=== PATIENT | male | born 1965 | race African-American/Black ===

== ENCOUNTER 2017-04-09 07:25 | Observation (INO) | payer OTHER ==
[~2017-04-09] VITALS: Ht 177.8 cm; Wt 98.0 kg
[2017-04-09] VITALS (7 sets, daily range): BP systolic 112–129; BP diastolic 61–79; PULSE 66–86; RESP 18–20; TEMP 98–98.2; O2SAT 96–98
--- NOTE | 2017-04-09 07:37 | PD ---
HPI Chief Complaint: Chest Pain Time Seen by Provider: 07:32 Travel History International Travel<30 days: No Contact w/Intl Traveler<30days: No Traveled to known affect area: No History of Present Illness HPI This is a 51-year-old male who presents to the emergency department with chest discomfort that started 30 minutes prior to arrival, sternal, constant, moderate severity, radiating to the back and to the left leg associated with shortness of breath and nausea. Patient says he used cocaine last night. He is hopeful to check into a detox. He also has diabetes and hypertension. FORMERLY [facility] Past Medical History Narrative Medical htn dm not on meds for 2 weeks Social History Alcohol Use: Yes Tobacco Use: No Substance Use: Yes (cocaine) Allergies-Medications (Allergen,Severity, Reaction): Coded Allergies: haloperidol (Verified Allergy, Intermediate, Swollen tongue, 04/09/17) Review of Systems Except as stated in HPI: all other systems reviewed are Neg Physical Exam Narrative GENERAL:Well appearing, no acute distress SKIN: Focused skin assessment warm and dry. HEAD: Atraumatic. Normocephalic. EYES: Pupils equal and round. No injection or drainage. ENT: Moist mucous membranes NECK: Trachea midline. CARDIOVASCULAR: Regular rate and rhythm. No murmur appreciated. Radial pulses are equal and 2+ bilaterally RESPIRATORY: Clear to auscultation. Breath sounds equal bilaterally. GASTROINTESTINAL: Abdomen soft, non-tender, nondistended. MUSCULOSKELETAL: No obvious deformities. NEUROLOGICAL: Awake and alert. No obvious cranial nerve deficits. Moving all extremities. PSYCHIATRIC: Appropriate mood and affect; insight and judgment normal. Data Data Last Documented VS Vital Signs Date Time Temp Pulse Resp B/P (MAP) Pulse Ox O2 Delivery O2 Flow Rate FiO2 04/09/17 07:40 82 114/76 (89) 04/09/17 07:39 97 Nasal Cannula 2.00 04/09/17 07:37 22 04/09/17 07:30 98.0 Orders Orders Electrocardiogram (04/09/17 07:33) Complete Blood Count With Diff (04/09/17 07:33) Comprehensive Metabolic Panel (04/09/17 07:33) Prothrombin Time / Inr (Pt) (04/09/17 07:33) Act Partial Throm Time (Ptt) (04/09/17 07:33) Troponin I (04/09/17 07:33) Chest, Single Ap (04/09/17 07:33) Ecg Monitoring (04/09/17 07:33) Bilateral Bp Monitoring (04/09/17 07:33) Iv Access Insert/Monitor (04/09/17 07:33) Oximetry (04/09/17 07:33) Oxygen Administration (04/09/17 07:33) Cta Thor Abd Aorta W Iv C W3d (04/09/17 07:33) Iohexol 350 Inj (Omnipaque 350 Inj) (04/09/17 08:44) Admit Order (Ed Use Only) (04/09/17 09:29) Labs Laboratory Tests Test 04/09/17 07:45 White Blood Count 4.7 TH/MM3 Red Blood Count 4.85 MIL/MM3 Hemoglobin 14.0 GM/DL Hematocrit 43.1 % Mean Corpuscular Volume 88.8 FL Mean Corpuscular Hemoglobin 28.9 PG Mean Corpuscular Hemoglobin Concent 32.5 % Red Cell Distribution Width 15.0 % Platelet Count 180 TH/MM3 Mean Platelet Volume 8.7 FL Neutrophils (%) (Auto) 55.1 % Lymphocytes (%) (Auto) 29.0 % Monocytes (%) (Auto) 12.9 % Eosinophils (%) (Auto) 2.3 % Basophils (%) (Auto) 0.7 % Neutrophils # (Auto) 2.6 TH/MM3 Lymphocytes # (Auto) 1.4 TH/MM3 Monocytes # (Auto) 0.6 TH/MM3 Eosinophils # (Auto) 0.1 TH/MM3 Basophils # (Auto) 0.0 TH/MM3 CBC Comment DIFF FINAL Differential Comment Prothrombin Time 10.5 SEC Prothromb Time International Ratio 1.0 RATIO Activated Partial Thromboplast Time 27.1 SEC Blood Urea Nitrogen 10 MG/DL Creatinine 1.04 MG/DL Random Glucose 106 MG/DL Total Protein 7.4 GM/DL Albumin 3.7 GM/DL Calcium Level 8.3 MG/DL Alkaline Phosphatase 78 U/L Aspartate Amino Transf (AST/SGOT) 41 U/L Alanine Aminotransferase (ALT/SGPT) 46 U/L Total Bilirubin 0.2 MG/DL Sodium Level 141 MEQ/L Potassium Level 3.9 MEQ/L Chloride Level 109 MEQ/L Carbon Dioxide Level 24.5 MEQ/L Anion Gap 8 MEQ/L Estimat Glomerular Filtration Rate 91 ML/MIN Troponin I LESS THAN 0.02 NG/ML MDM Medical Decision Making Medical Screen Exam Complete: Yes Emergency Medical Condition: Yes Interpretation(s) EKG: Normal sinus rhythm with no ST changes No leukocytosis -Electrolytes are reassuring Last 24 hours Impressions Chest X-Ray 04/09/17732 Signed Impressions: Service Date/Time: Sunday, April 09, 2017 07:43 - CONCLUSION: No acute disease. Yon Duarte MD Aorta CTA 04/09/17732 Signed Impressions: Service Date/Time: Sunday, April 09, 2017 08:36 - CONCLUSION: 1. Normal thoracic and abdominal aorta. No dissection or aneurysm. 2. Diverticulosis and constipation. There is a questionable wall thickening within the rectosigmoid colon. Patient would likely benefit from colonoscopy at some point. 3. Mild hepatic steatosis. Yon Duarte MD Differential Diagnosis Acute coronary syndrome, cocaine vasospasm, aortic dissection, pulmonary embolism Narrative Course This is a 51-year-old male who presents to the emergency department with chest discomfort that started half an hour prior to arrival. He says these cocaine last night. He also has a history of diabetes and hypertension. He was placed on a monitor and an IV was established. EKG is reassuring. Labs are unremarkable. He describes some atypical radiation both to the back and the leg so I ordered a CTA which was negative for aortic dissection. Initial troponin is negative. I think patient requires serial cardiac enzymes and the chest pain center given his multiple risk factors. He is requesting detox. I splinted and we don't have an inpatient detox and I think he can be discharged with resources for Natan Bunch following his visit. [facility] Apr 09, 2017 07:37
--- NOTE | 2017-04-09 07:53 | RADRPT ---
EXAM DATE/TIME: 04/09/2017 07:43 [facility] COMPARISON: No previous studies available for comparison. INDICATIONS : Chest pain. MEDICAL HISTORY : Unobtainable. SURGICAL HISTORY : Unobtainable. ENCOUNTER: Initial ACUITY: 2 days PAIN SCORE: 6/10 LOCATION: Bilateral chest FINDINGS: A single view of the chest demonstrates the lungs to be symmetrically aerated without evidence of mas s, infiltrate or effusion. The cardiomediastinal contours are unremarkable. Osseous structures are intact. CONCLUSION: No acute disease. Yon Duarte MD on April 09, 2017 at 7:49 Board Certified Radiologist. This report was verified electronically.
[2017-04-09 07:56] LABS: AUTOMATED NEUTROPHIL # 2.6 TH/MM3 (1.8-7.7); BASOPHIL % 0.7 % (0.0-2.0); EOSINOPHIL # 0.1 TH/MM3 (0-0.4); EOSINOPHIL % 2.3 % (0.0-4.0); HEMATOCRIT 43.1 % (39.0-51.0); HEMO FLAGS DIFF FINAL; LYMPHOCYTE # 1.4 TH/MM3 (1.0-4.8); MEAN CELL VOLUME 88.8 FL (80.0-100.0); MEAN CORPUSCULAR HEMOGLOBIN 28.9 PG (27.0-34.0); MEAN CORPUSCULAR HGB CONC 32.5 % (32.0-36.0); MONO % 12.9 % (0.0-8.0); NEUT % 55.1 % (16.0-70.0); PLATELET COUNT 180 TH/MM3 (150-450); RED BLOOD COUNT 4.85 MIL/MM3 (4.50-5.90); WHITE BLOOD COUNT 4.7 TH/MM3 (4.0-11.0)
[2017-04-09 08:06] LABS: APTT (PATIENT) 27.1 SEC (24.3-30.1); PROTHROMBIN TIME - PATIENT 10.5 SEC (9.8-11.6)
[2017-04-09 08:17] LABS: ALKALINE PHOSPHATASE 78 U/L (45-117); TOTAL BILIRUBIN ADULT 0.2 MG/DL (0.2-1.0)
[2017-04-09 08:24] LABS: ALT (GPT) 46 U/L (12-78); ANION GAP 8 MEQ/L (5-15); AST (GOT) 41 U/L (15-37); BICARBONATE 24.5 MEQ/L (21.0-32.0); BLOOD UREA NITROGEN 10 MG/DL (7-18); CHLORIDE 109 MEQ/L (98-107); GLOMERULAR FILTRATION RATE 91 ML/MIN (>89); POTASSIUM 3.9 MEQ/L (3.5-5.1); SODIUM (NA) 141 MEQ/L (136-145)
[2017-04-09] MEDS ORDERED: IOHEXOL 350 MG/ML 10 ML VIAL (for RAD DIAG) IVCONTRAST ONE (08:44)
--- NOTE | 2017-04-09 09:21 | RADRPT ---
EXAM DATE/TIME: 04/09/2017 08:36 [facility] COMPARISON: No previous studies available for comparison. INDICATIONS : Chest pain, evaluate for dissection. IV CONTRAST: 96 cc Omnipaque 350 (iohexol) IV RADIATION DOSE: 17.11 CTDIvol (mGy) MEDICAL HISTORY : Hypertension. Diabetes SURGICAL HISTORY : None. ENCOUNTER: Initial ACUITY: 1 day PAIN SCALE: 6/10 LOCATION: chest TECHNIQUE: Volumetric scanning was performed using a multi-row detector CT scanner. The data was post processed with a variety of visualization algorithms including full volume maximum intensity projection, multi -planar sliding thin slab reformation, curved planar reformation, and surface rendering techniques. Using automated exposure control and adjustment of the mA and/or kV according to patient size, radiat ion dose was kept as low as reasonably achievable to obtain optimal diagnostic quality images. DICOM format image data is available electronically for review and comparison. FINDINGS: LUNGS: There is no consolidation or pneumothorax. No concerning pulmonary nodule is visualized. No pleural fluid is present. Metallic densities are seen throughout the soft tissues of the right thorax. MEDIASTINUM: No abnormally enlarged lymph nodes by CT criteria. No axillary or hilar abnormalities are identified. ABDOMEN: The liver and spleen are free of focal defects. The gallbladder and pancreas demonstrate no abnormali ty. The adrenal glands are normal. The kidneys demonstrate no evidence of solid renal mass or hydrone phrosis. No free fluid or abdominal masses are identified. No para-aortic adenopathy is seen. Diverti culosis. Copious stool in the colon greatest in the rectum. Fatty liver. PELVIS: No evidence of free fluid or pelvic mass. No abnormally enlarged inguinal or retroperitoneal lymph no inna are present. The bladder is unremarkable. THORACIC AORTA: The thoracic aortic root is normal with normal branching of the great vessels. There is no evidence of aneurysm or dissection. ABDOMINAL AORTA: The aorta is normal in caliber without aneurysm or dissection. The renal arteries are patent bilater ally. The proximal celiac and superior mesenteric arteries are patent and normal in diameter. PELVIC VESSELS: The internal iliac and external iliac vessels are patent without aneurysm or stenosis. CONCLUSION: 1. Normal thoracic and abdominal aorta. No dissection or aneurysm. 2. Diverticulosis and constipation. There is a questionable wall thickening within the rectosigmoid c olon. Patient would likely benefit from colonoscopy at some point. 3. Mild hepatic steatosis. Yon Duarte MD on April 09, 2017 at 9:12 Board Certified Radiologist. This report was verified electronically.
[2017-04-09] MEDS ORDERED: ACETAMINOPHEN 500 MG CPLT PO PRN (10:00)
[2017-04-09] MEDS ORDERED: SODIUM CHLORIDE 0.9% FLUSH 10 ML FLUSH IV FLUSH PRN (10:00)
[2017-04-09] MEDS ORDERED: NITROGLYCERIN 0.4 MG SL 25 TABS/BTL SL PRN (10:00)
[2017-04-09] MEDS ORDERED: ONDANSETRON HCL 4 MG/2 ML VIAL IV PUSH PRN (10:00)
--- NOTE | 2017-04-09 10:31 | HHI.HP ---
HPI Primary Care Physician No Primary Care Physician Chief Complaint Chest pain History of Present Illness 51-year-old male with history of hypertension, diabetes, alcohol abuse, and regular cocaine use presents to emergency room for further evaluation of chest pain. Last used cocaine between 6438-2309 last evening. Onset chest pain between 1013-4464 this morning. Location generalized chest area, pointing to left anterior chest, right anterior chest, and substernal area. Characterized as sharp. Severity moderate. Radiation to left hip. Duration constant. Associated symptoms nausea, dyspnea, diaphoresis. Denied vomiting. No known precipitating or relieving factors. Hurts to take a deep breath, reporting "sore to touch area." Denies similar pain in the past. Endorses recent problem with alcohol last 2 months and cocaine the last month. Drinks a case beer daily and have used cocaine daily for past month. Reports current depression accompanied with suicidal thoughts. Denies a formal suicide plan or past suicide attempts. Review of Systems General: No fatigue,weakness, fever, chills, or recent illness. Reporting daily cocaine use x1 month daily and case beer daily for at least 2 months. Last cocaine use and alcohol drink last evening between 8195-2842. HEENT: No MERCHANT. Reports waking up with right eyelid slightly swollen, no drainage , pain, or vision changes. CV: Continues to have pain as stated above. RESP: No SOB, cough, or recent respiratory infection. GI: No nausea, vomiting, bowel changes, distention, melena, or blood in the stool. EXT: No lower leg edema, no paraesthesias MS: No discomfort or change in ROM. History of chronic low back pain, reports self medication of alcohol and cocaine to help with back pain. NEURO: No motor/sensory deficits PSYCH: Current depression accompanied with frequent thoughts of suicide. Denies previous suicide attempts or formulating a current suicide plan. States current substance and alcohol abuse and would like to stop both. Past Family Social History Allergies: Coded Allergies: haloperidol (Verified Allergy, Intermediate, Swollen tongue, 04/09/17) Past Medical History Hypertension, diabetes type 2, chronic low back pain Past Surgical History None Reported Medications Metformin 500 mg PO twice a day Lisinopril (dose unknown) PO daily Active Ordered Medications Current Medications Medications (Trade) Dose Ordered Sig/Sachin Route Start Time Stop Time Status Last Admin (NS Flush) 2 ml UNSCH PRN IV FLUSH 04/09/17 10:00 (NS Flush) 2 ml BID IV FLUSH 04/09/17 21:00 (Tylenol) 500 mg Q4H PRN PO 04/09/17 10:00 (Zofran Inj) 4 mg Q6H PRN IV PUSH 04/09/17 10:00 (Nitrostat Sl) 0.4 mg Q5M PRN SL 04/09/17 10:00 (Aspirin) 325 mg DAILY PO 04/10/17 09:00 Family History Noncontributory for early onset cardiovascular disease to his knowledge. Social History Known hypertension and diabetes (diagnosed "many years ago" reported to be stable). No known coronary artery disease or hyperlipidemia. Endorses been on cholesterol medication years ago, unsure why medication was stopped. Recently moved to [facility], has not established with a PCP locally. Followed closely with his PCP when living in [place]. Lifelong nonsmoker. Drinks case beer/daily. Daily cocaine use x30 days. Single, engaged, disabled. Past cardiac testing None Physical Exam Vital Signs Vital Signs Date Time Temp Pulse Resp B/P (MAP) Pulse Ox O2 Delivery O2 Flow Rate FiO2 04/09/17 07:40 82 114/76 (89) 04/09/17 07:39 97 Nasal Cannula 2.00 04/09/17 07:39 86 124/77 (93) 04/09/17 07:37 76 22 97 Nasal Cannula 2.00 04/09/17 07:30 98.0 82 18 114/76 (89) 96 Physical Exam GENERAL: Alert WN, WD, NAD, pleasant, male HEAD: NC, AT EYES: Sclera clear, conjunctiva without injection, pupils equal and round ENT: Mucous membranes pink and moist NECK: Supple, no masses, trachea midline CV: RRR, without murmur, rub, gallop, no JVD, S1-S2 no S3-S4. No carotid bruits. RESP: Clear lungs throughout bilateral, no crackles, wheeze, rhonchi, symmetrical chest rise, nonlabored, able to speak in full sentences ABD: Soft, ND, no masses, positive bowel tones. Slightly tender with palpation in epigastric area. EXT: Pulses +24, no dependent edema MS: Normal tone 4 extremities, no obvious deformities, full range of motion NEURO: CN II through CN XII grossly intact, motor strength 5/5, MAEX4 PSYCH: A+O 3, pleasant affect, appropriate speech, mood, insight and judgment SKIN: Normal turgor, normal texture, no lesions, no rashes, brisk cap refill, even hair distribution Laboratory Laboratory Tests Test 04/09/17 07:45 White Blood Count 4.7 Red Blood Count 4.85 Hemoglobin 14.0 Hematocrit 43.1 Mean Corpuscular Volume 88.8 Mean Corpuscular Hemoglobin 28.9 Mean Corpuscular Hemoglobin Concent 32.5 Red Cell Distribution Width 15.0 Platelet Count 180 Mean Platelet Volume 8.7 Neutrophils (%) (Auto) 55.1 Lymphocytes (%) (Auto) 29.0 Monocytes (%) (Auto) 12.9 Eosinophils (%) (Auto) 2.3 Basophils (%) (Auto) 0.7 Neutrophils # (Auto) 2.6 Lymphocytes # (Auto) 1.4 Monocytes # (Auto) 0.6 Eosinophils # (Auto) 0.1 Basophils # (Auto) 0.0 CBC Comment DIFF FINAL Differential Comment Prothrombin Time 10.5 Prothromb Time International Ratio 1.0 Activated Partial Thromboplast Time 27.1 Blood Urea Nitrogen 10 Creatinine 1.04 Random Glucose 106 Total Protein 7.4 Albumin 3.7 Calcium Level 8.3 Alkaline Phosphatase 78 Aspartate Amino Transf (AST/SGOT) 41 Alanine Aminotransferase (ALT/SGPT) 46 Total Bilirubin 0.2 Sodium Level 141 Potassium Level 3.9 Chloride Level 109 Carbon Dioxide Level 24.5 Anion Gap 8 Estimat Glomerular Filtration Rate 91 Troponin I LESS THAN 0.02 Result Diagram: 04/09/1745 04/09/17744 Imaging Last Impressions Chest X-Ray 04/09/17732 Signed Impressions: Service Date/Time: Sunday, April 09, 2017 07:43 - CONCLUSION: No acute disease. Yon Duarte MD Aorta CTA 04/09/17732 Signed Impressions: Service Date/Time: Sunday, April 09, 2017 08:36 - CONCLUSION: 1. Normal thoracic and abdominal aorta. No dissection or aneurysm. 2. Diverticulosis and constipation. There is a questionable wall thickening within the rectosigmoid colon. Patient would likely benefit from colonoscopy at some point. 3. Mild hepatic steatosis. Yon Duarte MD Course EKG NSR, normal axis, no st segment changes, criteria for LVH Caprini VTE Risk Assessment Caprini VTE Risk Assessment: No/Low Risk (score <= 1) Caprini Risk Assessment Model Point Value = 1 Point Value = 2 Point Value = 3 Point Value = 5 Age 41-60 Minor surgery BMI > 25 kg/m2 Swollen legs Varicose veins or History of unexplained or recurrent spontaneous Oral contraceptives or hormone replacement Sepsis (< 1 month) Serious lung disease, including pneumonia (< 1 month) Abnormal pulmonary function Acute myocardial infarction Congestive heart failure (< 1 month) History of inflammatory bowel disease Medical patient at bed rest Age 61-74 Arthroscopic surgery Major open surgery (> 45 min) Laparoscopic surgery (> 45 min) Malignancy Confined to bed (> 72 hours) Immobilizing plaster cast Central venous access Age >= 75 History of VTE Family history of VTE Factor V Leiden Prothrombin [id number] Lupus anticoagulant Anticardiolipin antibodies Elevated serum homocysteine Heparin-induced thrombocytopenia Other congenital or acquired thrombophilia Stroke (< 1 month) Elective arthroplasty Hip, pelvis, or leg fracture Acute spinal cord injury (< 1 month) Prophylaxis Regimen Total Risk Factor Score Risk Level Prophylaxis Regimen 0-1 Low Early ambulation 2 Moderate Order ONE of the following: *Sequential Compression Device (SCD) *Heparin 5000 units SQ BID 3-4 Higher Order ONE of the following medications: *Heparin 5000 units SQ TID *Enoxaparin/Lovenox 40 mg SQ daily (WT < 150 kg, CrCl > 30 mL/min) *Enoxaparin/Lovenox 30 mg SQ daily (WT < 150 kg, CrCl > 10-29 mL/min) *Enoxaparin/Lovenox 30 mg SQ BID (WT < 150 kg, CrCl > 30 mL/min) AND/OR *Sequential Compression Device (SCD) 5 or more Highest Order ONE of the following medications: *Heparin 5000 units SQ TID (Preferred with Epidurals) *Enoxaparin/Lovenox 40 mg SQ daily (WT < 150 kg, CrCl > 30 mL/min) *Enoxaparin/Lovenox 30 mg SQ daily (WT < 150 kg, CrCl > 10-29 mL/min) *Enoxaparin/Lovenox 30 mg SQ BID (WT < 150 kg, CrCl > 30 mL/min) AND *Sequential Compression Device (SCD) Assessment and Plan Assessment and Plan #1 Atypical chest pain-admitted to chest pain center. Rule out with 3 sets of EKGs, cardiac enzymes, monitor on telemetry. Will be seen and evaluated by Dr. Joauqin Solomon. #2 Cocaine use-education provided on effects of cocaine on myocardium, informed of risks with cocaine including, but not limited to, ND, congestive heart failure, and even . Strongly encouraged him to stop using cocaine. #3 Alcohol abuse-CIWA protocol, seizure precautions, patient requesting help with alcohol detox, case management consult placed #4 Hypertension-stable, continue to monitor, continue lisinopril #5 Diabetes type II-continue metformin, highly encouraged to establish with a local PCP as he plans on staying in the area. #5 Depression with suicidal ideation-consult to psychology, patient informed of consult, expresses gratefulness for consult. Reports willingness for voluntary inpatient psych if psychologist feels treatment is warranted. Patient made aware recommendation will be determined by psychologist. No current suicidal thoughts, verbal contract made with patient. Verbalized he will notify RN or a staff member if he develops any suicide thoughts while in hospital. [id number] Seen and evaluated by Dr. Solomon. Patient endorses long standing substance and alcohol use since age 17. Endorses sobriety for 7 years at one point. Discussed with Dr. Solomon psychology consult, continue as previously ordered. Sharron Rodriguez Apr 09, 2017 10:31
[2017-04-09] MEDS ORDERED: LORazepam 2 MG TAB PO PRN (10:45)
[2017-04-09] MEDS ORDERED: LORazepam 1 MG TAB PO PRN (10:45)
[2017-04-09] MEDS ORDERED: FLUMAZENIL 0.5 MG/5 ML VIAL IV PUSH PRN (10:45)
[2017-04-09] MEDS ORDERED: LORazepam 2 MG/ML VIAL IV PUSH PRN ×4 (10:45)
[2017-04-09] MEDS: THIAMINE HCL 100 MG TAB PO SCH (10:58)
[2017-04-09] MEDS: PANTOPRAZOLE SOD 40 MG DELAYED RELEASE TAB PO SCH (10:58)
[2017-04-09] MEDS: FOLIC ACID 1 MG TAB PO SCH (10:58)
[2017-04-09] MEDS: MULTIVITAMINS/MINERALS THERAPEUTIC TAB PO SCH (10:58)
[2017-04-09 11:35] LABS: CREATINE KINASE 515 U/L (39-308)
[2017-04-09 11:47] LABS: CKMB 2.4 NG/ML (0.5-3.6)
--- NOTE | 2017-04-09 11:48 | PD.CARD.PN ---
Subjective Subjective Remarks 51 YO black male who provides me with a slightly different history to that obtained already. He has been experiencing difficulty with alcohol and drugs since his late teens. He lives in [facility] where he has family but came to [facility] because of a relationship with a lady in [place] and his hope of getting away from previous associations. unfortunately, he has fallen in with same group here and now drinking and doing cocaine regularly. Did last Cocaine was last night. He has had some suicidal ideation but denies current desire or plan. Never the less a Psych consult is requested. Onset: Woke with left chest pain 4:30 Character: Sharp severe Location: Left chest Severity: 12/15 Radiation: No Duration: Persists Associated Symptoms: SOB Precipitating or Relieving Factors: No Objective Medications Current Medications Medications (Trade) Dose Ordered Sig/Sachin Route Start Time Stop Time Status Last Admin (NS Flush) 2 ml UNSCH PRN IV FLUSH 04/09/17 10:00 (NS Flush) 2 ml BID IV FLUSH 04/09/17 21:00 (Tylenol) 500 mg Q4H PRN PO 04/09/17 10:00 (Zofran Inj) 4 mg Q6H PRN IV PUSH 04/09/17 10:00 (Nitrostat Sl) 0.4 mg Q5M PRN SL 04/09/17 10:00 (Aspirin) 325 mg DAILY PO 04/10/17 09:00 (Romazicon Inj) 0.2 mg Q1M PRN IV PUSH 04/09/17 10:45 (Ativan) 1 mg Q4H PRN PO 04/09/17 10:45 (Ativan Inj) 1 mg Q4H PRN IV PUSH 04/09/17 10:45 (Ativan) 2 mg Q2H PRN PO 04/09/17 10:45 (Ativan Inj) 2 mg Q2H PRN IV PUSH 04/09/17 10:45 (Ativan Inj) 2 mg Q1H PRN IV PUSH 04/09/17 10:45 (Ativan Inj) 2 mg Q15M PRN IV PUSH 04/09/17 10:45 (Folate) 1 mg DAILY PO 04/09/17 11:00 04/14/17 10:59 04/09/17 10:58 (Vitamin B1) 100 mg DAILY PO 04/09/17 11:00 04/09/17 10:58 (Theragran M Tab) 1 tab DAILY PO 04/09/17 11:00 04/14/17 10:59 04/09/17 10:58 (Protonix) 40 mg DAILY PO 04/09/17 11:00 04/09/17 10:58 Vital Signs / I&O Vital Signs Date Time Temp Pulse Resp B/P (MAP) Pulse Ox O2 Delivery O2 Flow Rate FiO2 04/09/17 07:40 82 114/76 (89) 04/09/17 07:39 97 Nasal Cannula 2.00 04/09/17 07:39 86 124/77 (93) 04/09/17 07:37 76 22 97 Nasal Cannula 2.00 04/09/17 07:30 98.0 82 18 114/76 (89) 96 Physical Exam GENERAL: WNWD BUT RESTLESS AND JITTERY SKIN: Warm and dry. HEAD: Atraumatic. Normocephalic. EYES: Pupils equal and round. No scleral icterus. No injection or drainage. ENT: No nasal bleeding or discharge. Mucous membranes pink and moist. NECK: Trachea midline. No JVD. CARDIOVASCULAR: Regular rate and rhythm. RESPIRATORY: No accessory muscle use. Clear to auscultation. Breath sounds equal bilaterally. GASTROINTESTINAL: Abdomen soft, non-tender, nondistended. Hepatic and splenic margins not palpable. MUSCULOSKELETAL: Extremities without clubbing, cyanosis, or edema. No obvious deformities. NEUROLOGICAL: Awake and alert. SLIGHT DROOP OF R EYE AND POSSIBLY RIGHT MOUTH BUT No obvious cranial nerve deficits ON TESTING. Motor grossly within normal limits. Five out of 5 muscle strength in the arms and legs. Normal speech. PSYCHIATRIC: ANXIOUS, EXPRESSES DEPRESSION AND CONCERN Laboratory Laboratory Tests Test 04/09/17 07:45 04/09/17 10:58 White Blood Count 4.7 TH/MM3 Red Blood Count 4.85 MIL/MM3 Hemoglobin 14.0 GM/DL Hematocrit 43.1 % Mean Corpuscular Volume 88.8 FL Mean Corpuscular Hemoglobin 28.9 PG Mean Corpuscular Hemoglobin Concent 32.5 % Red Cell Distribution Width 15.0 % Platelet Count 180 TH/MM3 Mean Platelet Volume 8.7 FL Neutrophils (%) (Auto) 55.1 % Lymphocytes (%) (Auto) 29.0 % Monocytes (%) (Auto) 12.9 % Eosinophils (%) (Auto) 2.3 % Basophils (%) (Auto) 0.7 % Neutrophils # (Auto) 2.6 TH/MM3 Lymphocytes # (Auto) 1.4 TH/MM3 Monocytes # (Auto) 0.6 TH/MM3 Eosinophils # (Auto) 0.1 TH/MM3 Basophils # (Auto) 0.0 TH/MM3 CBC Comment DIFF FINAL Differential Comment Prothrombin Time 10.5 SEC Prothromb Time International Ratio 1.0 RATIO Activated Partial Thromboplast Time 27.1 SEC Blood Urea Nitrogen 10 MG/DL Creatinine 1.04 MG/DL Random Glucose 106 MG/DL Total Protein 7.4 GM/DL Albumin 3.7 GM/DL Calcium Level 8.3 MG/DL Alkaline Phosphatase 78 U/L Aspartate Amino Transf (AST/SGOT) 41 U/L Alanine Aminotransferase (ALT/SGPT) 46 U/L Total Bilirubin 0.2 MG/DL Sodium Level 141 MEQ/L Potassium Level 3.9 MEQ/L Chloride Level 109 MEQ/L Carbon Dioxide Level 24.5 MEQ/L Anion Gap 8 MEQ/L Estimat Glomerular Filtration Rate 91 ML/MIN Troponin I LESS THAN 0.02 NG/ML LESS THAN 0.02 NG/ML Total Creatine Kinase 515 U/L Imaging Last 24 hours Impressions Chest X-Ray 04/09/17732 Signed Impressions: Service Date/Time: Sunday, April 09, 2017 07:43 - CONCLUSION: No acute disease. Yon Duarte MD Aorta CTA 04/09/17732 Signed Impressions: Service Date/Time: Sunday, April 09, 2017 08:36 - CONCLUSION: 1. Normal thoracic and abdominal aorta. No dissection or aneurysm. 2. Diverticulosis and constipation. There is a questionable wall thickening within the rectosigmoid colon. Patient would likely benefit from colonoscopy at some point. 3. Mild hepatic steatosis. Yon Duarte MD Assessment and Plan Assessment and Plan CHEST PAIN PROBABLY NOT CARDIAC BUT NEED TO RO WITH FULL PROTOCOL ALCOHOL ABUSE DRUG ABUSE DEPRESSION ABN LFT Code Status FULL Discussed Condition With TOOK SOME TIME TO DISCUSS NEED FOR HELP AND SUGGESTED AA AND POSSIBLY PSYCH HELP. ALSO SUGGESTED HE SEEK COMMUNITY RESOURCES FOR DRUG ADDICTION. Joaquin Solomon MD Apr 09, 2017 11:48
[2017-04-09 14:45] LABS: CREATINE KINASE 496 U/L (39-308)
[2017-04-09 14:57] LABS: CKMB 2.2 NG/ML (0.5-3.6)
[2017-04-09] MEDS ORDERED: REGADENOSON INJ 0.4 MG/5 ML SYR ONE (15:34)
--- NOTE | 2017-04-09 16:28 | EKG ---
Date Performed: 04/09/2017 Time Performed: 11:03:15 PTAGE: 51 years EKG: Sinus rhythm INCOMPLETE RIGHT BUNDLE BRANCH BLOCK NONSPECIFIC T-WAVE ABNORMALITY BORDERLINE ECG NO SIG CHANGE PREVIOUS TRACING : 04/09/2017 07.33 DOCTOR: Joaquin Solomon Interpretating Date/Time 04/09/2017 16:27:29
--- NOTE | 2017-04-09 16:29 | EKG ---
Date Performed: 04/09/2017 Time Performed: 07:33:43 PTAGE: 51 years EKG: Sinus rhythm POSSIBLE RIGHT VENTRICULAR CONDUCTION DELAY NONSPECIFIC T-WAVE ABNORMALITY BORDERLINE ECG NO PREVIOUS TRACING DOCTOR: Joaquin Solomon Interpretating Date/Time 04/09/2017 16:28:34
--- NOTE | 2017-04-09 16:31 | TR ---
Date Performed: 04/09/2017 Time Performed: 15:57:41 DOCTOR: Joaquin Solomon DRUG LIST: CLINICAL HISTORY: REASON FOR TEST: CHEST PAIN REASON FOR ENDING: OBSERVATION: CONCLUSION: Lexiscan stress test was performed under standard four minute protocol. Radionuclide was injected one minute prior to ending the test. No electrocardiographic abormalities were present to suggest ischemia. Nuclear imaging and interpretation are pending. COMMENTS:
--- NOTE | 2017-04-09 16:50 | RADRPT ---
EXAM DATE/TIME: 04/09/2017 15:29 [facility] COMPARISON: No previous studies available for comparison. INDICATIONS : Substernal chest pain radiating to the back with dyspnea and nausea. Angina. DOSE: 25.6 mCi Tc99m Myoview at stress. 8.4 mCi Tc99m Myoview at rest. 0.4 mg Lexiscan STRESS SYMPTOMS: None noted. EJECTION FRACTION: 69% MEDICAL HISTORY : Diabetes mellitus type 2. Hypertension. Cocaine abuse. SURGICAL HISTORY : None. ENCOUNTER: Initial ACUITY: 1 day PAIN SCALE: 6/10 LOCATION: Substernal chest TECHNIQUE: The patient underwent pharmacologic stress with infusion of prescribed dose. Continuous ECG tracing was monitored during stress. Gated SPECT imaging was performed after stress and conventional SPECT i maging was performed at rest. The examination was performed on a SPECT/CT scanner, both attenuation and non-corrected datasets were reviewed. FINDINGS: DISTRIBUTION: The maximum perfused segment at stress is in the lateral wall. PERFUSION STUDY: Small area of mildly decreased reversible perfusion in the anterior wall. GATED STUDY: There is intact wall motion and thickening without hypokinetic or dyskinetic segments. CONCLUSION: 1. Small and mild area of stress-induced ischemia of the anterior wall. 2. Normal wall motion and left ventricular ejection fraction. RISK CATEGORY: Intermediate Arsaln Saavedra MD on April 09, 2017 at 16:45 Board Certified Radiologist. This report was verified electronically.
[2017-04-09] MEDS: NITROGLYCERIN 2% OINT 1 GM PACKET TOPICAL SCH ×2 (18:00→22:05)
--- NOTE | 2017-04-09 19:07 | PD.CONS ---
HPI Consult Requested By Primary Care Physician No Primary Care Physician History of Present Illness 51-year-old male with history of hypertension, diabetes, alcohol abuse, and regular cocaine use presents to emergency room for further evaluation of atypical chest pain. Last used cocaine between [id number] last evening. Onset chest pain between [id number] this morning. Location generalized chest area, pointing to left anterior chest, right anterior chest, and substernal area. Characterized as sharp. Severity moderate. Radiation to left hip. Endorses recent problem with alcohol last 2 months and cocaine the last month. Drinks a case beer daily and have used cocaine daily for past month. Reports current depression accompanied with suicidal thoughts. Denies a formal suicide plan or past suicide attempts. Negative cardiac troponin. MPI shows small defect. Cardiology consulted for further management and evaluation. Review of Systems Consitutional: DENIES: Fatigue, Fever, Chills, Weight gain, Weight loss Eyes: DENIES: Amaurosis Fugax, Change in vision HEENT: DENIES: Lightheadedness, Change in hearing Respiratory: DENIES: See HPI, Cough, Snoring, Shortness of breath, Wheezing, Sputum production Cardiovascular: COMPLAINS OF: See HPI Gastrointestinal: DENIES: Nausea, Vomiting, Change in bowel habits, Reflux, Bloody stools, Melena Genitourinary: DENIES: Urinary incontinence, Difficulty voiding Integumentary: DENIES: Rash Neurologic: DENIES: Tingling or numbness, Memory problems, Poor Balance, Stroke symptoms Musculoskeletal: DENIES: Joint pain, Muscle pain, Limited range of motion, Back pain Psychiatric: DENIES: Anxiety, Depression, Sleep disturbances Hematologic: DENIES: Bruising tendencies, Bleeding tendencies Endocrine: DENIES: Weight gain, Weight loss, Thyroid disease Past Family Social History Allergies: Coded Allergies: haloperidol (Verified Allergy, Intermediate, Swollen tongue, 04/09/17) Past Medical History Alcohol abuse Cocaine HTN Obesity Active Ordered Medications Current Medications Medications (Trade) Dose Ordered Sig/Sachin Route Start Time Stop Time Status Last Admin (NS Flush) 2 ml UNSCH PRN IV FLUSH 04/09/17 10:00 (NS Flush) 2 ml BID IV FLUSH 04/09/17 21:00 (Tylenol) 500 mg Q4H PRN PO 04/09/17 10:00 (Zofran Inj) 4 mg Q6H PRN IV PUSH 04/09/17 10:00 (Nitrostat Sl) 0.4 mg Q5M PRN SL 04/09/17 10:00 (Aspirin) 325 mg DAILY PO 04/10/17 09:00 (Romazicon Inj) 0.2 mg Q1M PRN IV PUSH 04/09/17 10:45 (Ativan) 1 mg Q4H PRN PO 04/09/17 10:45 (Ativan Inj) 1 mg Q4H PRN IV PUSH 04/09/17 10:45 (Ativan) 2 mg Q2H PRN PO 04/09/17 10:45 04/09/17 12:23 (Ativan Inj) 2 mg Q2H PRN IV PUSH 04/09/17 10:45 (Ativan Inj) 2 mg Q1H PRN IV PUSH 04/09/17 10:45 (Ativan Inj) 2 mg Q15M PRN IV PUSH 04/09/17 10:45 (Folate) 1 mg DAILY PO 04/09/17 11:00 04/14/17 10:59 04/09/17 10:58 (Vitamin B1) 100 mg DAILY PO 04/09/17 11:00 04/09/17 10:58 (Theragran M Tab) 1 tab DAILY PO 04/09/17 11:00 04/14/17 10:59 04/09/17 10:58 (Protonix) 40 mg DAILY PO 04/09/17 11:00 04/09/17 10:58 (Nitroglycerin 2% Oint) 0.5 inch Q6HR TOPICAL 04/09/17 18:00 Physical Exam Vital Signs Vital Signs Date Time Temp Pulse Resp B/P (MAP) Pulse Ox O2 Delivery O2 Flow Rate FiO2 04/09/17 13:36 98.2 75 20 129/79 (96) 98 04/09/17 13:04 04/09/17 07:40 82 114/76 (89) 04/09/17 07:39 97 Nasal Cannula 2.00 04/09/17 07:39 86 124/77 (93) 04/09/17 07:37 76 22 97 Nasal Cannula 2.00 04/09/17 07:30 98.0 82 18 114/76 (89) 96 Physical Exam GENERAL: Well-nourished, well-developed patient. SKIN: Warm and dry. HEAD: Normocephalic. EYES: No scleral icterus. No injection or drainage. NECK: Supple, trachea midline. No JVD or lymphadenopathy. CARDIOVASCULAR: Regular rate and rhythm without murmurs, gallops, or rubs. RESPIRATORY: Breath sounds equal bilaterally. No accessory muscle use. GASTROINTESTINAL: Abdomen soft, non-tender, nondistended. EXTREMITIES: No cyanosis, or edema. NEUROLOGICAL: Awake, alert, and oriented x 3. Non-focal. Laboratory Laboratory Tests Test 04/09/17 07:45 04/09/17 10:58 04/09/17 13:50 White Blood Count 4.7 Red Blood Count 4.85 Hemoglobin 14.0 Hematocrit 43.1 Mean Corpuscular Volume 88.8 Mean Corpuscular Hemoglobin 28.9 Mean Corpuscular Hemoglobin Concent 32.5 Red Cell Distribution Width 15.0 Platelet Count 180 Mean Platelet Volume 8.7 Neutrophils (%) (Auto) 55.1 Lymphocytes (%) (Auto) 29.0 Monocytes (%) (Auto) 12.9 Eosinophils (%) (Auto) 2.3 Basophils (%) (Auto) 0.7 Neutrophils # (Auto) 2.6 Lymphocytes # (Auto) 1.4 Monocytes # (Auto) 0.6 Eosinophils # (Auto) 0.1 Basophils # (Auto) 0.0 CBC Comment DIFF FINAL Differential Comment Prothrombin Time 10.5 Prothromb Time International Ratio 1.0 Activated Partial Thromboplast Time 27.1 Blood Urea Nitrogen 10 Creatinine 1.04 Random Glucose 106 Total Protein 7.4 Albumin 3.7 Calcium Level 8.3 Alkaline Phosphatase 78 Aspartate Amino Transf (AST/SGOT) 41 Alanine Aminotransferase (ALT/SGPT) 46 Total Bilirubin 0.2 Sodium Level 141 Potassium Level 3.9 Chloride Level 109 Carbon Dioxide Level 24.5 Anion Gap 8 Estimat Glomerular Filtration Rate 91 Troponin I LESS THAN 0.02 LESS THAN 0.02 LESS THAN 0.02 Total Creatine Kinase 515 496 Creatine Kinase MB 2.4 2.2 Creatine Kinase MB % 0.5 0.4 Result Diagram: 04/09/1745 04/09/17744 Imaging Last Impressions Chest X-Ray 04/09/17732 Signed Impressions: Service Date/Time: Sunday, April 09, 2017 07:43 - CONCLUSION: No acute disease. Yon Duarte MD Aorta CTA 04/09/17732 Signed Impressions: Service Date/Time: Sunday, April 09, 2017 08:36 - CONCLUSION: 1. Normal thoracic and abdominal aorta. No dissection or aneurysm. 2. Diverticulosis and constipation. There is a questionable wall thickening within the rectosigmoid colon. Patient would likely benefit from colonoscopy at some point. 3. Mild hepatic steatosis. Yon Duarte MD Myocardial Perfusion Scan [facility] 04/09/17 0000 Signed Impressions: Service Date/Time: Sunday, April 09, 2017 15:29 - CONCLUSION: 1. Small and mild area of stress-induced ischemia of the anterior wall. 2. Normal wall motion and left ventricular ejection fraction. RISK CATEGORY: Intermediate Arslan Saavedra MD Assessment and Plan Problem List: (1) Atypical chest pain ICD Codes: R07.89 - Other chest pain Plan: 51 y/o M with atypical chest pain, unremarkable EKG, MPI small area of ischemia. He reports been depressed. He REFUSES to have invasive risk stratification. Recs: 1. Aggressive medical management for CAD with ACEi, statin, ASA (No BB given recent Cocaine use) 2. Consult psychiatry 3. F/U with cardiology upon discharge Sign off Amari Keane MD Apr 09, 2017 19:07
[2017-04-09] MEDS: SODIUM CHLORIDE 0.9% FLUSH 10 ML FLUSH IV FLUSH SCH (22:05)
[2017-04-10] VITALS (8 sets, daily range): BP systolic 108–129; BP diastolic 55–79; PULSE 58–85; RESP 18; TEMP 98.1–99.4; O2SAT 95–98
[2017-04-10] MEDS: NITROGLYCERIN 2% OINT 1 GM PACKET TOPICAL SCH ×3 (00:25→13:02)
--- NOTE | 2017-04-10 08:36 | HHI.PR ---
Subjective Remarks 61-year-old male with a past medical history significant for hypertension, diabetes, alcohol and cocaine abuse presents to the emergency department for further evaluation of atypical chest pain. This morning, the patient states his chest pain is improved. His major complaint is suicidal ideation without any plans. He states he has never felt this way before. Objective Vitals Vital Signs Date Time Temp Pulse Resp B/P (MAP) Pulse Ox O2 Delivery O2 Flow Rate FiO2 04/10/17 08:14 98.4 85 18 121/55 (77) 96 04/10/17 04:56 98.2 74 18 129/79 (96) 98 04/10/17 04:45 21 04/10/17 03:34 58 04/10/17 00:39 98.1 68 18 108/64 (79) 97 04/10/17 00:03 70 04/09/17 20:05 66 04/09/17 19:55 98.0 72 18 112/61 (78) 97 04/09/17 13:45 71 04/09/17 13:36 98.2 75 20 129/79 (96) 98 04/09/17 13:04 I/O 04/09/17 04/09/17 04/09/17 04/10/17 04/10/17 04/10/17 07:00 15:00 23:00 07:00 15:00 23:00 Intake Total 460 ml Balance 460 ml Intake Oral 460 ml Result Diagram: 04/09/17 0745 04/09/17 0745 Objective Remarks GENERAL: Well-nourished, well-developed patient. SKIN: Warm and dry. HEAD: Normocephalic. EYES: No scleral icterus. No injection or drainage. NECK: Supple, trachea midline. No JVD or lymphadenopathy. CARDIOVASCULAR: Regular rate and rhythm without murmurs, gallops, or rubs. RESPIRATORY: Breath sounds equal bilaterally. No accessory muscle use. GASTROINTESTINAL: Abdomen soft, non-tender, nondistended. EXTREMITIES: No cyanosis, or edema. NEUROLOGICAL: Awake, alert, and oriented x 3. Non-focal. PSYCH: Endorses depressed mood with SI A/P Assessment and Plan 1. Atypical chest pain Stress test showed a small mild area of stress-induced ischemia of the anterior cardiac wall. Normal wall motion and preserved LV EF Seen by cardiology who recommends aggressive medical management with HANS inhibitor, statin and aspirin Avoid beta blockers for recent cocaine use Follow-up with cardiology as an outpatient 2. Suicidal ideation Patient states he has no plans for suicide at this time Psychiatry consulted, appreciate assistance 3. Hypertension Patient with controlled blood pressure at this time Monitor 4. Diabetes mellitus Blood glucose well controlled at this time SSI Discharge Planning Pending psychiatry recommendations Amalia Manzo MD Apr 10, 2017 08:36
[2017-04-10] MEDS ORDERED: DEXTROSE 50% IN WATER 50 ML VIAL(D50) IV PUSH PRN (08:45)
[2017-04-10] MEDS ORDERED: GLUCAGON 1 MG/ML VIAL OTHER PRN (08:45)
[2017-04-10] MEDS: MULTIVITAMINS/MINERALS THERAPEUTIC TAB PO SCH (09:00)
[2017-04-10] MEDS ORDERED: LISINOPRIL 5 MG TAB PO SCH (09:00)
[2017-04-10] MEDS ORDERED: ASPIRIN 325 MG TAB PO SCH (09:00)
[2017-04-10] MEDS ORDERED: PILL SPLITTER OTHER PRN (09:00)
[2017-04-10] MEDS: PANTOPRAZOLE SOD 40 MG DELAYED RELEASE TAB PO SCH (10:09)
[2017-04-10] MEDS: THIAMINE HCL 100 MG TAB PO SCH (10:10)
[2017-04-10] MEDS: FOLIC ACID 1 MG TAB PO SCH (10:10)
[2017-04-10] MEDS: SODIUM CHLORIDE 0.9% FLUSH 10 ML FLUSH IV FLUSH SCH (10:11)
[2017-04-10] MEDS ORDERED: INSULIN ASPART SUPPLEMENTAL SCALE SQ SCH (12:00)
[2017-04-10] MEDS ORDERED: ASA325 PO (13:06)
[2017-04-10] MEDS ORDERED: LISI-519 PO (13:06)
[2017-04-10] MEDS ORDERED: ATOR20TA15 PO (13:06)
--- NOTE | 2017-04-10 13:06 | HHI.DCPOC ---
Discharge Care Plan Goals to Promote Your Health * To prevent worsening of your condition and complications follow all discharge instructions * To maintain your health at the optimal level take all medications as prescribed Directions to Meet Your Goals Take your medications as prescribed Follow your dietary instruction Follow activity as directed Keep your appointments as scheduled Take your immunizations and boosters as scheduled If your symptoms worsen call your PCP, if no PCP go to Urgent Care Center or Emergency Room Smoking is Dangerous to Your Health. Avoid second hand smoke Call the 24-hour hour crisis hotline for domestic abuse at Amalia Manzo MD Apr 10, 2017 13:06
--- NOTE | 2017-04-10 14:59 | EKG ---
Date Performed: 04/09/2017 Time Performed: 13:37:07 PTAGE: 51 years EKG: Sinus rhythm INCOMPLETE RIGHT BUNDLE BRANCH BLOCK BORDERLINE ECG PREVIOUS TRACING : 04/09/2017 11.03 Since previous tracing, no significant change noted DOCTOR: Ariel Wolff Interpretating Date/Time 04/10/2017 14:57:36
[2017-04-10] MEDS ORDERED: ATORVASTATIN 20 MG TAB PO SCH (21:00)
== END 2017-04-10 15:12 ==
LOC: NEPC 07:25 → NEDA 09:31 → NEPFCDU 12:30
PROVIDERS: ADMIT Hospitalist; ATTEND Hospitalist
DX: R07.89 Other chest pain (principal); F14.90 Cocaine use, unspecified, uncomplicated; F10.10 Alcohol abuse, uncomplicated; R06.02 Shortness of breath; M79.605 Pain in left leg; I45.10 Unspecified right bundle-branch block; R45.851 Suicidal ideations; R11.0 Nausea; R06.00 Dyspnea, unspecified; R61 Generalized hyperhidrosis; K57.90 Diverticulosis of intestine, part unspecified, without perforation or abscess without bleeding; K59.00 Constipation, unspecified; K76.0 Fatty (change of) liver, not elsewhere classified; I20.9 Angina pectoris, unspecified; I10 Essential (primary) hypertension; E11.9 Type 2 diabetes mellitus without complications; M54.5 Low back pain; G89.29 Other chronic pain; F32.9 Major depressive disorder, single episode, unspecified; E66.9 Obesity, unspecified; Z79.899 Other long term (current) drug therapy; Z79.84 Long term (current) use of oral hypoglycemic drugs
CPT/HCPCS: 71010; 71275; 74174; 78452; 80053; 82550; 82552; 82948; 84484; 85025; 85610; 85730; 93005; 93017; 96374; 99285; A9502; G0378; J2060; J2785; Q9967

== ENCOUNTER 2017-04-10 13:21 | Inpatient (IN) | payer SELFPAY ==
[~2017-04-10] VITALS: Ht 177.8 cm; Wt 101.8 kg
[2017-04-10 08:00] VITALS: O2SAT 97
[~2017-04-10 13:21] MED LIST: ASA325 PO; ATOR20TA15 PO; LISI-519 PO
[2017-04-10] MEDS ORDERED: diphenhydrAMINE HCL 50 MG CAP PO PRN (16:00)
[2017-04-10] MEDS ORDERED: FLUMAZENIL 0.5 MG/5 ML VIAL IV PUSH PRN (16:00)
[2017-04-10] MEDS ORDERED: LORazepam 1 MG TAB PO PRN (16:00)
[2017-04-10] MEDS ORDERED: LORazepam 2 MG/ML VIAL IV PUSH PRN ×4 (16:00)
[2017-04-10] MEDS ORDERED: diphenhydrAMINE HCL 50 MG/ML VIAL IM PRN (16:00)
[2017-04-10] MEDS ORDERED: LORazepam 2 MG TAB PO PRN (16:00)
[2017-04-10] MEDS ORDERED: MAGNESIUM HYDROXIDE SUSP 30 ML CUP PO PRN (16:00)
[2017-04-10] MEDS ORDERED: ACETAMINOPHEN 325 MG TAB PO PRN (16:00)
[2017-04-10] MEDS ORDERED: ALUMINUM/MAGNESIUM/SIMETH 30 ML CUP PO PRN (16:00)
--- NOTE | 2017-04-10 16:00 | HHI.HP ---
Provisional Diagnosis Admission Date Apr 10, 2017 at 15:25 [place]. Adjustment disorder with depressed mood Certification of Person's Competence To Provide Express and Informed Consent I have personally examined Thaddeus Wolff , a person being served at [facility] on, Apr 10, 2017 15:53. Express and informed consent means consent voluntarily given in writing, by a competent person, after sufficient explanation and disclosure of the subject matter involved to enable the person to make a knowing and willful decision without any element of force, fraud, deceit, duress, or other form of constraint or coercion. This person is 18 years of age or older, is not now known to be incompetent to consent to treatment with a guardian advocate, and does not have a health care surrogate or proxy currently making medical treatment decisions. I have found this person to be one of the following: [X] Competent to provide express and informed consent, as defined above, for voluntary admission to this facility and is competent to provide express and informed consent for treatment. He/she has the consistent capacity to make well reasoned, willful, and knowing decisions concerning his or her medical or mental health treatment. The person fully and consistently understands the purpose of the admission for examination/placement and is fully capable of personally exercising all rights assured under [place] Incompetent to provide express and informed consent to voluntary admission, and this is incompetent to provide express and informed consent to treatment. The person must be transferred to involuntary status and a petition for a guardian advocate filed with the Circuit Court. [] Refusing to provide express and informed consent to voluntary admission but is competent to provide express and informed consent for treatment. The person must be discharged or transferred to involuntary status. Form shall be completed within 24 hours of a person's arrival at the receiving facility and filed in the clinical record of each person: 1. Admitted on a voluntary basis 2. Permitted to provide express and informed consent to his/her own treatment 3. Allowed to transfer from involuntary to voluntary status 4. Prior to permitting a person to consent to his or her own treatment after having been previously found incompetent to consent to treatment. History of Present Illness Capacity: Has Capacity HPI 51-year-old male being admitted voluntarily for symptoms of depression, suicidal ideation and auditory hallucinations telling him to kill himself. Patient self reportedly has a history of schizophrenia. He is basically homeless but has been staying with a person who is an active drug user and the patient states he has begun using drugs as well. The patient does not want to return to that residence and does not want to continue using drugs. However, his more acute problem at this time are command auditory hallucinations telling him to kill himself. He does not have a specific plan. Patient does report multiple symptoms of depression, including depressed mood, anhedonia, feelings of hopelessness and helplessness, diminished self-esteem, anxiety, insomnia, social withdrawal, and problems with concentration and memory. His toxicology screen is positive for multiple items. Review of Systems Psychiatric: COMPLAINS OF: Anxiety, Depression, Suicidal Ideation Except as stated in HPI: all other systems reviewed are Neg Past Psych History Psychological trauma history Unknown for psychological trauma. Patient says he has a history of schizophrenia. Violence risk - others (6 mos) Minimal Violence risk - self (6 mos) High Substance Abuse History Drugs/Alcohol past 12 months Multiple substances including cocaine, alcohol, etc. Past Family Social History Coded Allergies: haloperidol (Verified Allergy, Intermediate, Swollen tongue, 04/09/17) Active Scripts Aspirin (Px Aspirin) 325 Mg Tab, 325 MG PO DAILY for HTN, #30 TAB Prov:Amalia Manzo MD 04/10/17 Lisinopril (Lisinopril) 5 Mg Tab, 2.5 MG PO DAILY for HTN, #30 TAB Prov:Amalia Manzo MD 04/10/17 Atorvastatin (Atorvastatin) 20 Mg Tab, 20 MG PO HS for HLD, #30 TAB Prov:Amalia Manzo MD 04/10/17 Family Psych History Positive for depression and anxiety. Social History Patient states he does receive Social Security disability and Medicaid. He is not currently employed. He is however homeless. He does admit to recent drug use. Patient's Strengths (min. 2) Verbal and has access to healthcare. Physical Exam GENERAL: SKIN: Warm and dry. HEAD: Normocephalic. EYES: No scleral icterus. No injection or drainage. NECK: Supple, trachea midline. No JVD or lymphadenopathy. CARDIOVASCULAR: Regular rate and rhythm without murmurs, gallops, or rubs. RESPIRATORY: Breath sounds equal bilaterally. No accessory muscle use. GASTROINTESTINAL: Abdomen soft, non-tender, nondistended. MUSCULOSKELETAL: No cyanosis, or edema. BACK: Nontender without obvious deformity. No CVA tenderness. Mental Status Examination Appearance: Disheveled Consciousness: Alert Orientation: x4 Motor Activity: Normal gait Speech: Unremarkable Language: Adequate Fund of Knowledge: Adequate Attention and Concentration: Inadequate Memory: Unremarkable Mood: Sad, Anxious Affect: Sad, Anxious Thought Process & Associations: Intact Thought Content: Appropriate Hallucination Type: Auditory, Command Delusion Type: None Suicidal Ideation: Yes Suicidal Plan: No Suicidal Intention: No Homicidal Ideation: No Homicidal Plan: No Homicidal Intention: No Insight: Fair Judgment: Impulsive Assessment & Plan Problem List: (1) Adjustment disorder with depressed mood ICD Codes: F43.21 - Adjustment disorder with depressed mood Assessment & Plan Estimated LOS: days. Patient being admitted voluntarily due to multiple risk factors for killing himself. Patient is depressed, upset with himself for having used drugs, homeless, schizophrenic, and experiencing auditory hallucinations of a command nature, telling him to kill himself. This physician has ordered a CBC and comprehensive metabolic panel to determine if any infectious process or metabolic process is causing or contributing to the patient's depression and psychosis. Additionally, this physician has ordered thyroid stimulating hormone, vitamin B-12 and vitamin D levels to determine if deficiencies in these areas is causing or contributing to his depression and psychosis. Because the patient has a history of multiple medical problems, we are obtaining a hospitalist consult. This physician has also ordered an EKG to determine the patient's cardiac conduction status prior to changing his psychotropic medicines and possibly adversely affecting his heart. Furthermore, the patient was placed on a CIWA protocol to protect him from withdrawal. This physician discussed the patient's case with nurse Silva. Case management will also be involved to assist with further information gathering and disposition planning. Trino Juarez MD Apr 10, 2017 16:00
[2017-04-10 16:37] VITALS: BP 143/62; PULSE 71; RESP 18; TEMP 98; O2SAT 98
[2017-04-10] MEDS ORDERED: LORazepam 2 MG/ML VIAL IM PRN ×2 (17:15→20:00)
[2017-04-10 18:00] VITALS: BP 143/62; PULSE 71; RESP 17; TEMP 98; O2SAT 98
[2017-04-11 06:20] VITALS: BP 100/57; PULSE 60; RESP 17; TEMP 98.1; O2SAT 97
[2017-04-11 08:41] LABS: AUTOMATED NEUTROPHIL # 2.2 TH/MM3 (1.8-7.7); BASOPHIL % 0.5 % (0.0-2.0); EOSINOPHIL # 0.1 TH/MM3 (0-0.4); EOSINOPHIL % 2.3 % (0.0-4.0); HEMATOCRIT 43.6 % (39.0-51.0); HEMO FLAGS DIFF FINAL; LYMPH % 46.3 % (9.0-44.0); LYMPHOCYTE # 2.3 TH/MM3 (1.0-4.8); MEAN CELL VOLUME 89.6 FL (80.0-100.0); MEAN CORPUSCULAR HEMOGLOBIN 29.5 PG (27.0-34.0); MEAN CORPUSCULAR HGB CONC 32.9 % (32.0-36.0); MONO % 5.8 % (0.0-8.0); NEUT % 45.1 % (16.0-70.0); PLATELET COUNT 160 TH/MM3 (150-450); RED BLOOD COUNT 4.87 MIL/MM3 (4.50-5.90); RED CELL DISTRIBUTION WIDTH 15.1 % (11.6-17.2); WHITE BLOOD COUNT 4.9 TH/MM3 (4.0-11.0)
[2017-04-11 09:07] LABS: AST (GOT) 20 U/L (15-37); BICARBONATE 26.2 MEQ/L (21.0-32.0); BLOOD UREA NITROGEN 9 MG/DL (7-18); GLOMERULAR FILTRATION RATE 86 ML/MIN (>89)
[2017-04-11 09:08] LABS: ALT (GPT) 29 U/L (12-78)
[2017-04-11 09:32] LABS: ANION GAP 8 MEQ/L (5-15); CHLORIDE 103 MEQ/L (98-107); POTASSIUM 4.1 MEQ/L (3.5-5.1); SODIUM (NA) 137 MEQ/L (136-145)
[2017-04-11 09:34] LABS: ALKALINE PHOSPHATASE 71 U/L (45-117); HDL CHOLESTEROL 51.8 MG/DL (40.0-60.0); LDL CHOLESTEROL 90 MG/DL (0-99); TOTAL BILIRUBIN ADULT 0.3 MG/DL (0.2-1.0)
[2017-04-11] MEDS ORDERED: hydrOXYzine HCL 50 MG TAB PO PRN (13:00)
[2017-04-11] MEDS ORDERED: IBUPROFEN 600 MG TAB PO PRN (13:00)
[2017-04-11] MEDS ORDERED: ALUMINUM/MAGNESIUM/SIMETH 30 ML CUP PO PRN (13:00)
[2017-04-11] MEDS ORDERED: MAGNESIUM HYDROXIDE SUSP 30 ML CUP PO PRN (13:00)
[2017-04-11] MEDS: risperiDONE 1 MG TAB PO SCH ×2 (13:00→20:47)
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
[2017-04-11 14:17] LABS: HEMOGLOBIN A1a 1.2 %; HEMOGLOBIN A1b 1.7 %; HEMOGLOBIN Ao 85.5 %; HEMOGLOBIN LA1C 1.9 %; HEMOGLOBIN P3 3.4 %
--- NOTE | 2017-04-11 18:10 | PD.CONS ---
HPI Service [facility] Hospitalists Consult Requested By Dr Juarez Reason for Consult Medical management Primary Care Physician No Primary Care Physician Diagnoses: History of Present Illness This is a 51-year-old male with past medical history significant for diabetes, hypertension, hyperlipidemia and chronic low back pain who presents to [facility] and was admitted voluntarily for symptoms of depression, suicidal ideation and auditory hallucinations telling him to kill himself. After psychiatrist notes the patient has a reported history of schizophrenia. The patient is homeless but has been staying with a person who is an active drug user and the patient states that he has begun using drugs as well. The patient currently denies any chest pain or shortness of breath, nausea, vomiting or diarrhea, abdominal pain. The patient only planes of lower back pain. Review of Systems As per history of present illness, other systems reviewed by me and negative Past Family Social History Allergies: Coded Allergies: haloperidol (Verified Allergy, Intermediate, Swollen tongue, 04/09/17) Past Medical History 1. Diabetes mellitus. 2. Hyperlipidemia. 3. Hypertension. 4. Chronic low back pain. Past Surgical History Denies any major surgeries. Reported Medications Reported Meds & Active Scripts Active Px Aspirin (Aspirin) 325 Mg Tab 325 Mg PO DAILY Lisinopril 5 Mg Tab 2.5 Mg PO DAILY Atorvastatin (Atorvastatin Calcium) 20 Mg Tab 20 Mg PO HS Active Ordered Medications Current Medications Medications (Trade) Dose Ordered Sig/Sachin Route Start Time Stop Time Status Last Admin (Romazicon Inj) 0.2 mg Q1M PRN IV PUSH 04/10/17 16:00 (Ativan) 1 mg Q4H PRN PO 04/10/17 16:00 (Ativan) 2 mg Q2H PRN PO 04/10/17 16:00 (Ativan Inj) 2 mg Q2H PRN IV PUSH 04/10/17 16:00 (Ativan Inj) 2 mg Q1H PRN IV PUSH 04/10/17 16:00 (Ativan Inj) 1 mg Q4H PRN IM 04/10/17 20:00 (Ativan Inj) 2 mg Q15M PRN IM 04/10/17 17:15 (Milk Of Magnesia Liq) 30 ml DAILY PRN PO 04/11/17 13:00 (Mag-Al Plus Susp Liq) 30 ml Q6H PRN PO 04/11/17 13:00 (Atarax) 50 mg Q6H PRN PO 04/11/17 13:00 (Motrin) 600 mg Q6H PRN PO 04/11/17 13:00 (Remeron) 15 mg HS PO 04/11/17 21:00 04/11/17 20:47 (risperDAL) 1 mg Q12HR PO 04/11/17 13:00 04/12/17 09:10 Family History Patient denies any family history of diabetes, heart disease or cancer. Family history positive for depression and anxiety. Social History The patient denies smoking. States he drinks alcohol. States he used to smoke marijuana. As per psychiatric notes the patient's history of multiple substance abuse including cocaine and alcohol. Patient has a daughter and fianc. Physical Exam Vital Signs Vital Signs Date Time Temp Pulse Resp B/P (MAP) Pulse Ox O2 Delivery O2 Flow Rate FiO2 04/11/17 06:20 98.1 60 17 100/57 (71) 97 Physical Exam GENERAL: This is a well-nourished, well-developed patient, in no apparent distress. SKIN: No rashes, ecchymoses or lesions. Cool and dry. HEAD: Atraumatic. Normocephalic. No temporal or scalp tenderness. EYES: Pupils equal round and reactive. Extraocular motions intact. No scleral icterus. No injection or drainage. ENT: Nose without bleeding, purulent drainage or septal hematoma. Throat without erythema, tonsillar hypertrophy or exudate. Uvula midline. Airway patent. NECK: Trachea midline. No JVD or lymphadenopathy. Supple, nontender, no meningeal signs. CARDIOVASCULAR: Regular rate and rhythm without murmurs, gallops, or rubs. RESPIRATORY: Clear to auscultation. Breath sounds equal bilaterally. No wheezes , rales, or rhonchi. GASTROINTESTINAL: Abdomen soft, non-tender, nondistended. No hepato-splenomegaly , or palpable masses. No guarding. MUSCULOSKELETAL: Extremities without clubbing, cyanosis, or edema. No joint tenderness, effusion, or edema noted. No calf tenderness. Negative Homans sign bilaterally. NEUROLOGICAL: Awake and alert. Cranial nerves II through XII intact. Motor and sensory grossly within normal limits. Five out of 5 muscle strength in all muscle groups. Normal speech. Laboratory Laboratory Tests Test 04/11/17 07:19 White Blood Count 4.9 Red Blood Count 4.87 Hemoglobin 14.4 Hematocrit 43.6 Mean Corpuscular Volume 89.6 Mean Corpuscular Hemoglobin 29.5 Mean Corpuscular Hemoglobin Concent 32.9 Red Cell Distribution Width 15.1 Platelet Count 160 Mean Platelet Volume 9.7 Neutrophils (%) (Auto) 45.1 Lymphocytes (%) (Auto) 46.3 Monocytes (%) (Auto) 5.8 Eosinophils (%) (Auto) 2.3 Basophils (%) (Auto) 0.5 Neutrophils # (Auto) 2.2 Lymphocytes # (Auto) 2.3 Monocytes # (Auto) 0.3 Eosinophils # (Auto) 0.1 Basophils # (Auto) 0.0 CBC Comment DIFF FINAL Differential Comment Blood Urea Nitrogen 9 Creatinine 1.10 Random Glucose 119 Total Protein 7.4 Albumin 3.7 Calcium Level 9.0 Alkaline Phosphatase 71 Aspartate Amino Transf (AST/SGOT) 20 Alanine Aminotransferase (ALT/SGPT) 29 Total Bilirubin 0.3 Sodium Level 137 Potassium Level 4.1 Chloride Level 103 Carbon Dioxide Level 26.2 Anion Gap 8 Estimat Glomerular Filtration Rate 86 Hemoglobin A1c 5.7 Triglycerides Level 141 Cholesterol Level 170 LDL Cholesterol 90 HDL Cholesterol 51.8 Cholesterol/HDL Ratio 3.28 Vitamin B12 Level 331 25-Hydroxy Vitamin D Total 14.5 Thyroid Stimulating Hormone 3rd Gen 1.970 Result Diagram: 04/11/1771804/11/17718 Assessment and Plan Problem List: (1) Adjustment disorder with depressed mood ICD Code: F43.21 - Adjustment disorder with depressed mood Plan: B12 and TSH normal, vitamin D decreased at 14.5. I will start the patient vitamin D 50,000 units every week for 3 weeks. After that the patient should take Manteinance vitamin D. Add RPR, CT of the head. Management of psychiatric problem as per psychiatry. (2) HTN (hypertension) ICD Code: I10 - Essential (primary) hypertension Plan: Continue lisinopril 2.5 mg by mouth daily. (3) Hyperlipidemia ICD Code: E78.5 - Hyperlipidemia, unspecified Plan: Continue statin. Lipid profile shows triglycerides of 141, total cholesterol 170, LDL cholesterol 90 and HDL cholesterol 51.8. (4) Low back pain ICD Code: M54.5 - Low back pain Status: Chronic Plan: There are no warning signs. Likely muscular skeletal. Will prescribe Toradol for pain. Code Status Full code Discussed Condition With Patient, RN. Problem Qualifiers (1) HTN (hypertension): Qualified Codes: I10 - Essential (primary) hypertension (2) Low back pain: Qualified Codes: M54.5 - Low back pain; G89.29 - Other chronic pain Orlando Goins MD Apr 11, 2017 18:10
[2017-04-11 18:23] VITALS: BP 100/53; PULSE 71; RESP 18; TEMP 98.6; O2SAT 99
[2017-04-11] MEDS: MIRTAZAPINE 15 MG TAB PO SCH (20:47)
[2017-04-12 05:45] VITALS: BP 121/65; PULSE 60; RESP 18; TEMP 97.2; O2SAT 98
[2017-04-12] MEDS: risperiDONE 1 MG TAB PO SCH ×2 (09:10→21:29)
--- NOTE | 2017-04-12 13:14 | HHI.PYPN ---
Subjective Remarks Patient seen in day room with nurse Amalia, chart review, patient compliant medications. Patient complains of continued auditory hallucinations though somewhat softer, today is vague about suicidality. Today also is considering an SHELTER placement. For now continue treatment Review of Systems Except as stated in HPI: all other systems reviewed are Neg Mental Status Examination Appearance: Disheveled (mildly) Consciousness: Alert Orientation: x4 Motor Activity: Normal gait Speech: Unremarkable Language: Adequate Fund of Knowledge: Adequate Attention and Concentration: Other (fair) Memory: Unremarkable Mood: Anxious, Other (mildly dysphoric) Affect: Other (slight decreased range and intensity) Thought Process & Associations: Intact Thought Content: Appropriate, Hallucinations Hallucination Type: Auditory (telling him to harm himself), Command Delusion Type: None Suicidal Ideation: Yes Suicidal Plan: No Suicidal Intention: No Homicidal Ideation: No Homicidal Plan: No Homicidal Intention: No Insight: Fair Judgment: Impulsive Results Vitals/IOs Vital Signs Date Time Temp Pulse Resp B/P (MAP) Pulse Ox O2 Delivery O2 Flow Rate FiO2 04/12/17 05:45 97.2 60 18 121/65 (83) 98 04/10/17 08:00 21 Assessment & Plan Problem List: (1) Adjustment disorder with depressed mood ICD Codes: F43.21 - Adjustment disorder with depressed mood (2) Cocaine abuse ICD Codes: F14.10 - Cocaine abuse, uncomplicated (3) Alcohol abuse ICD Codes: F10.10 - Alcohol abuse, uncomplicated Assessment & Plan Estimated LOS: days patient continues somewhat depressed and psychotic. Though his affect is somewhat softer. Compliant medications. Justification for Cont. Inpt. At this time patient will decompensate if placed in the lower level of care Discharge Planning Patient states no willing to consider [facility]TER placement Request HC Surrog/Guard Advoc?: No Arslan Momin MD Apr 12, 2017 13:14
[2017-04-12 13:19] LABS: HEMOGLOBIN A1a 1.2 %; HEMOGLOBIN A1b 1.8 %; HEMOGLOBIN Ao 85.7 %; HEMOGLOBIN LA1C 1.7 %; HEMOGLOBIN P3 3.3 %
[2017-04-12 18:00] VITALS: BP 140/72; PULSE 82; RESP 17; TEMP 97.9; O2SAT 99
[2017-04-12] MEDS ORDERED: KETOROLAC TROMETHAMINE 10 MG TAB PO PRN (18:00)
--- NOTE | 2017-04-12 19:22 | HHI.PR ---
Subjective Remarks c/o low back pain. Denies cp/sob. Objective Vitals Vital Signs Date Time Temp Pulse Resp B/P (MAP) Pulse Ox O2 Delivery O2 Flow Rate FiO2 04/12/17 18:00 97.9 82 17 140/72 (94) 99 04/12/17 05:45 97.2 60 18 121/65 (83) 98 Result Diagram: 04/11/17 0719 04/11/17 0719 Imaging Last Impressions Head CT 04/12/17 0000 Signed Impressions: Service Date/Time: April 05:10 - CONCLUSION: No evidence of hemorrhage, mass effect or acute stroke. Se Coombs MD Objective Remarks AAOx3 Clear lungs Abdomen soft, nt, nd no edema in lower extremities m strength 5/5 all extremities A/P Problem List: (1) Adjustment disorder with depressed mood ICD Code: F43.21 - Adjustment disorder with depressed mood Plan: B12 and TSH normal, vitamin D decreased at 14.5. I will start the patient vitamin D 50,000 units every week for 3 weeks. After that the patient should take Mantein[place] vitamin D. Add RPR, CT of the head. Management of psychiatric problem as per psychiatry. 04/[address] negative, rpr pending (2) HTN (hypertension) ICD Code: I10 - Essential (primary) hypertension Plan: Continue lisinopril 2.5 mg by mouth daily. BP stable (3) Hyperlipidemia ICD Code: E78.5 - Hyperlipidemia, unspecified Plan: Continue statin. Lipid profile shows triglycerides of 141, total cholesterol 170, LDL cholesterol 90 and HDL cholesterol 51.8. (4) Low back pain ICD Code: M54.5 - Low back pain Status: Chronic Plan: There are no warning signs. Likely muscular skeletal. Will prescribe Toradol for pain. Assessment and Plan DVT prophylaxis: Encourage ambulation. Problem Qualifiers (1) HTN (hypertension): Qualified Codes: I10 - Essential (primary) hypertension (2) Low back pain: Qualified Codes: M54.5 - Low back pain; G89.29 - Other chronic pain Orlando Goins MD Apr 12, 2017 19:22
[2017-04-12] MEDS: MIRTAZAPINE 15 MG TAB PO SCH (21:29)
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
[2017-04-13 06:06] VITALS: BP 105/63; PULSE 64; RESP 17; TEMP 98.4; O2SAT 97
[2017-04-13] MEDS: risperiDONE 1 MG TAB PO SCH (08:31)
[2017-04-13] MEDS ORDERED: RISP1 PO (11:16)
[2017-04-13] MEDS ORDERED: MIRTA15 PO (11:16)
--- NOTE | 2017-04-13 11:29 | HHI.DS ---
Psychiatry Discharge Summary Inpatient Psychiatric care?: Yes Advance Directive: Yes Mental Health AdvanceDirective: No Health Care Proxy: No Admission Admission Date Apr 10, 2017 at 15:25 Admission Diagnosis: (1) Cocaine abuse ICD Code: F14.10 - Cocaine abuse, uncomplicated (2) Alcohol abuse ICD Code: F10.10 - Alcohol abuse, uncomplicated (3) Adjustment disorder with depressed mood ICD Code: F43.21 - Adjustment disorder with depressed mood Brief History 51-year-old male being admitted voluntarily for symptoms of depression, suicidal ideation and auditory hallucinations telling him to kill himself. Patient self reportedly has a history of schizophrenia. He is basically homeless but has been staying with a person who is an active drug user and the patient states he has begun using drugs as well. The patient does not want to return to that residence and does not want to continue using drugs. However, his more acute problem at this time are command auditory hallucinations telling him to kill himself. He does not have a specific plan. Patient does report multiple symptoms of depression, including depressed mood, anhedonia, feelings of hopelessness and helplessness, diminished self-esteem, anxiety, insomnia, social withdrawal, and problems with concentration and memory. His toxicology screen is positive for multiple items. Tobacco Use In Past 30 Days: No Tobacco Past 30 Days Alcohol Use: 4 or More Times Per Week Hospital Course Patient's hospital course was uneventful calmly show compliance with medication or from admission. The voices suicidality gradually resolved patient seen today with forceps. He denies suicidality homicidality voices or visions. He does wish discharge today he does have a place to stay. He acknowledges his need for absolute sobriety. His willingness to follow-up with medication and appointments through [facility] act. Thus will be discharged today to himself Rx 1 month, also referral to [facility]/AA and [facility] act outpatient voluntary substance abuse assessment Results Blood Pressure 105 / 63 Vital Signs Date Time Temp Pulse Resp B/P (MAP) Pulse Ox O2 Delivery O2 Flow Rate FiO2 04/13/17 06:06 98.4 64 17 105/63 (77) 97 04/10/17 08:00 21 Laboratory Tests Test 04/11/17 07:19 Lymphocytes (%) (Auto) 46.3 % (9.0-44.0) Random Glucose 119 MG/DL (74-106) Estimat Glomerular Filtration Rate 86 ML/MIN (>89) 25-Hydroxy Vitamin D Total 14.5 ng/ML (30-100) Laboratory Results Test 04/11/17 07:19 Cholesterol Level 170 MG/DL (120-200) HDL Cholesterol 51.8 MG/DL (40.0-60.0) Hemoglobin A1c 5.8 % (4.3-6.0) LDL Cholesterol 90 MG/DL (0-99) Triglycerides Level 141 MG/DL (42-150) Summary of Procedures None done Imaging Last Impressions Head CT 04/12/17 0000 Signed Impressions: Service Date/Time: , April 13, 2017 05:10 - CONCLUSION: No evidence of hemorrhage, mass effect or acute stroke. Se Coombs MD Pending results at discharge: No Medications # of Antipsychotic meds at D/C: 1 Approp Antipsych med options 1 - Minimum of three failed multiple trials of monotherapy. 2 - Documented plan to taper to monotherapy due to previous use of multiple meds OR cross-taper in progress at D/C. 3 - Documentation of augmentation of Clozapine. 4 - Justification other than those listed in allowable values 1-3, document here : Discharge Discharge Date: Apr 13, 2017 Discharge Diagnosis: (1) Alcohol abuse Diagnosis: Secondary ICD Code: F10.10 - Alcohol abuse, uncomplicated (2) Cocaine abuse Diagnosis: Secondary ICD Code: F14.10 - Cocaine abuse, uncomplicated (3) Adjustment disorder with depressed mood Diagnosis: Principal ICD Code: F43.21 - Adjustment disorder with depressed mood Pt Condition on Discharge: Stable Discharge Disposition: Discharge Home Discharge Instructions Diet Instructions: As Tolerated, No Restrictions Activities you can perform: Regular-No Restrictions Scheduled Appointment: [facility] (medication management, also outpatient voluntary substance abuse assessment, also referred to [facility]) Discharge Time > 30 minutes Mental Status Examination Appearance: Disheveled (mildly) Consciousness: Alert Orientation: x4 Motor Activity: Normal gait Speech: Unremarkable Language: Adequate Fund of Knowledge: Adequate Attention and Concentration: Other (fair) Memory: Unremarkable Mood: Anxious, Other (mildly dysphoric) Affect: Other (slight decreased range and intensity) Thought Process & Associations: Intact Thought Content: Appropriate, Hallucinations Hallucination Type: Auditory (telling him to harm himself), Command Delusion Type: None Suicidal Ideation: Yes Suicidal Plan: No Suicidal Intention: No Homicidal Ideation: No Homicidal Plan: No Homicidal Intention: No Insight: Fair Judgment: Impulsive Discharge/Advance Care Plan Health Problems: (1) Adjustment disorder with depressed mood (2) Cocaine abuse (3) Alcohol abuse Goals to promote your health * To prevent worsening of your condition and complications * To maintain your health at the optimal level Directions to meet your goals Take your medications as prescribed Follow your dietary instruction Follow activity as directed Keep your appointments as scheduled Take your immunizations and boosters as scheduled If your symptoms worsen call your PCP, if no PCP go to Urgent Care Center or Emergency Room For 28/11 questions related to your inpatient stay or results of tests pending at discharge, please contact Dr. Arslan Momin at Smoking is Dangerous to Your Health. Avoid second hand smoking Arslan Momin MD Apr 13, 2017 11:29
== END 2017-04-13 15:20 | disposition home or self-care (01) | DRG 881 ==
LOC: H260 15:25
PROVIDERS: ADMIT Psychiatry & Neurology Psychiatry; ATTEND Psychiatry & Neurology Psychiatry
DX: F43.21 Adjustment disorder with depressed mood (principal); R45.851 Suicidal ideations; E11.9 Type 2 diabetes mellitus without complications; F20.9 Schizophrenia, unspecified; I10 Essential (primary) hypertension; E78.5 Hyperlipidemia, unspecified; M54.5 Low back pain; G89.29 Other chronic pain; F14.10 Cocaine abuse, uncomplicated; F12.90 Cannabis use, unspecified, uncomplicated; F10.10 Alcohol abuse, uncomplicated; Z59.0 Homelessness; Z81.8 Family history of other mental and behavioral disorders
CPT/HCPCS: 70450; 80053; 80061; 82306; 82607; 83036; 84443; 85025; 86592; Q0163

== ENCOUNTER 2017-04-14 14:35 | Observation (INO) | payer OTHER ==
[~2017-04-14] VITALS: Ht 177.8 cm; Wt 100.0 kg
[~2017-04-14 14:35] MED LIST changes: +MIRTA15 PO; +RISP1 PO
[2017-04-14 14:43] VITALS: BP 131/82; PULSE 92; RESP 18; TEMP 97.8; O2SAT 99
[2017-04-14] MEDS ORDERED: SODIUM CHLORIDE 0.9% FLUSH 10 ML FLUSH IVF PRN (15:15)
[2017-04-14 15:46] LABS: EOSINOPHIL # 0.1 TH/MM3 (0-0.4); EOSINOPHIL % 2.5 % (0.0-4.0); HEMATOCRIT 44.3 % (39.0-51.0); HEMO FLAGS DIFF FINAL; LYMPH % 43.8 % (9.0-44.0); LYMPHOCYTE # 2.1 TH/MM3 (1.0-4.8); MEAN CELL VOLUME 88.8 FL (80.0-100.0); MEAN CORPUSCULAR HEMOGLOBIN 29.5 PG (27.0-34.0); MEAN CORPUSCULAR HGB CONC 33.2 % (32.0-36.0); MONO % 12.1 % (0.0-8.0); NEUT % 40.6 % (16.0-70.0); PLATELET COUNT 171 TH/MM3 (150-450); RED BLOOD COUNT 4.99 MIL/MM3 (4.50-5.90); RED CELL DISTRIBUTION WIDTH 15.3 % (11.6-17.2); WHITE BLOOD COUNT 4.9 TH/MM3 (4.0-11.0)
--- NOTE | 2017-04-14 15:50 | RADRPT ---
EXAM DATE/TIME: 04/14/2017 15:22 [facility] COMPARISON: CHEST SINGLE AP, April 09, 2017, 7:43. INDICATIONS : Chest pain and shortness of breath. MEDICAL HISTORY : Diabetes mellitus type 2. Hypertension. Cocaine abuse. SURGICAL HISTORY : None. ENCOUNTER: Initial ACUITY: 2 days PAIN SCORE: 8/10 LOCATION: upper chest FINDINGS: Portable AP view of the chest demonstrates a normal-sized cardiac silhouette. No effusion, consolidat ion, or pneumothorax is visualized. The bones and soft tissues demonstrate no acute abnormality. Mult iple BBs overlie the right chest, stable from the prior exam. CONCLUSION: No acute cardiopulmonary abnormality is identified. Arslan Mcdermott MD on April 14, 2017 at 15:44 Board Certified Radiologist. This report was verified electronically.
--- NOTE | 2017-04-14 15:56 | PD ---
HPI Chief Complaint: Suicide Ideation/Attempt Time Seen by Provider: 14:55 Travel History International Travel<30 days: No Contact w/Intl Traveler<30days: No Traveled to known affect area: No History of Present Illness HPI 51-year-old male presents emergency department with complaint of left-sided chest pain that started this a.m. He reports snorting cocaine last night. He was seen here and admitted on April 09 for chest pain and admits to snorting cocaine at that time also. Reports associated shortness of breath. Denies heart palpitations. Reports the pain 12/15. Describes it as sharp. Denies fever, vomiting. Denies family history of cardiac events. Denies self history of cardiac events. Has not tried any treatments or medications to alleviate his symptoms. He is also reporting suicidal ideations. Has history of suicidal attempts. He says he is going to cut himself. He was also admitted here to [place] on April 10 for suicidal ideations. History of schizophrenia. Reports visual and auditory hallucinations. No known relieving or aggravating factors. Does not have an established primary care provider. Allergies Tylenol. History of hypertension, diabetes mellitus, chronic back pain. Has no other medical complaints. No other modifying factors or associated signs and symptoms. PFSH Past Medical History Depression: Yes Heart Rhythm Problems: No Cancer: No Cardiac Catheterization: No Cardiovascular Problems: Yes (AFIB) High Cholesterol: Yes Congestive Heart Failure: No Diabetes: Yes Patient Takes Glucophage: Yes (04-13-2017 AM) Endocrine: Yes Genitourinary: No Hypertension: Yes Immune Disorder: No Musculoskeletal: No Neurologic: No Psychiatric: Yes Reproductive: No Respiratory: No Schizophrenia: Yes Thyroid Disease: No Past Surgical History Surgical History: No Previous Surgery Coronary Artery Bypass Graft: No Insulin Pump: No Pacemaker: No Social History Alcohol Use: Yes (PT REPORTS 24 PACK BEER PER DAY) Tobacco Use: No Substance Use: Yes (MARIJUANA AND COCAINE) Allergies-Medications (Allergen,Severity, Reaction): Coded Allergies: haloperidol (Verified Allergy, Intermediate, Swollen tongue, 04/14/17) Reported Meds & Prescriptions Reported Meds & Active Scripts Active Risperdal (Risperidone) 1 Mg Tab 1 Mg PO Q12HR Mirtazapine 15 Mg Tab 15 Mg PO HS Lisinopril 5 Mg Tab 2.5 Mg PO DAILY Atorvastatin (Atorvastatin Calcium) 20 Mg Tab 20 Mg PO HS Review of Systems Except as stated in HPI: all other systems reviewed are Neg Physical Exam Narrative GENERAL: Well-nourished, well-developed black male patient, in no acute distress SKIN: Warm and dry. HEAD: Atraumatic. Normocephalic. EYES: Pupils equal and round. ENT: Mucosa pink and moist. NECK: Supple. Trachea midline. CARDIOVASCULAR: Regular rate and rhythm. No murmur appreciated. RESPIRATORY: No accessory muscle use. Clear to auscultation. Breath sounds equal bilaterally. GASTROINTESTINAL: Abdomen soft, non-tender, nondistended. Hepatic and splenic margins not palpable. Bowel sounds are active 4 quadrants. MUSCULOSKELETAL: No obvious deformities. No clubbing. No cyanosis. No edema. NEUROLOGICAL: Awake and alert. Oriented 3. No obvious cranial nerve deficits. Motor grossly within normal limits. Normal speech. Moves all extremities. 5/5 strength to all extremities. PSYCHIATRIC: No delusional thought processes. No hallucinations. Data Data Last Documented VS Vital Signs Date Time Temp Pulse Resp B/P (MAP) Pulse Ox O2 Delivery O2 Flow Rate FiO2 04/14/17 17:50 75 18 115/73 (87) Room Air 04/14/17 17:15 98.2 98 04/14/17 14:45 2.00 Orders Orders Electrocardiogram (04/14/17 14:57) Psych Screen (04/14/17 14:57) Drug Screen, Random Urine (04/14/17 14:57) Alcohol (Ethanol) (04/14/17 14:57) Tylenol (Acetaminophen) (04/14/17 14:57) Salicylates (Aspirin) (04/14/17 14:57) Basic Metabolic Panel (Bmp) (04/14/17 15:12) Ckmb (Isoenzyme) Profile (04/14/17 15:12) Complete Blood Count With Diff (04/14/17 15:12) Magnesium (Mg) (04/14/17 15:12) Prothrombin Time / Inr (Pt) (04/14/17 15:12) Act Partial Throm Time (Ptt) (04/14/17 15:12) Troponin I (04/14/17 15:12) Chest, Single Ap (04/14/17 15:12) Ecg Monitoring (04/14/17 15:12) Iv Access Insert/Monitor (04/14/17 15:12) Oximetry (04/14/17 15:12) Oxygen Administration (04/14/17 15:12) Sodium Chloride 0.9% Flush (Ns Flush) (04/14/17 15:15) CKMB (04/14/17 15:32) CKMB% (04/14/17 15:32) Diet Regular Basic (04/14/17 Dinner) Activity Bed Rest With Brp (04/14/17 18:15) Vital Signs (Adult) Q4H (04/14/17 18:15) Cardiac Rhythm .As Directed (04/14/17 18:15) Notify Dr: Other .PRN (04/14/17 18:15) Notify Dr. Parameters (04/14/17 18:15) Resp Oxygen Nasal Cannula (04/14/17 ) Ckmb (Isoenzyme) Profile (04/14/17 18:15) Ckmb (Isoenzyme) Profile (04/14/17 21:15) Troponin I (04/14/17 18:15) Troponin I (04/14/17 21:15) Electrocardiogram (04/14/17 18:15) Electrocardiogram (04/14/17 21:15) ^ Obtain (04/14/17 18:15) Sodium Chloride 0.9% Flush (Ns Flush) (04/14/17 18:15) Sodium Chloride 0.9% Flush (Ns Flush) (04/14/17 21:00) Harm Reduction Worker / Telemetry SAY.Q8H (04/14/17 18:15) Labs Laboratory Tests Test 04/14/17 15:32 04/14/17 16:45 White Blood Count 4.9 TH/MM3 Red Blood Count 4.99 MIL/MM3 Hemoglobin 14.7 GM/DL Hematocrit 44.3 % Mean Corpuscular Volume 88.8 FL Mean Corpuscular Hemoglobin 29.5 PG Mean Corpuscular Hemoglobin Concent 33.2 % Red Cell Distribution Width 15.3 % Platelet Count 171 TH/MM3 Mean Platelet Volume 8.6 FL Neutrophils (%) (Auto) 40.6 % Lymphocytes (%) (Auto) 43.8 % Monocytes (%) (Auto) 12.1 % Eosinophils (%) (Auto) 2.5 % Basophils (%) (Auto) 1.0 % Neutrophils # (Auto) 2.0 TH/MM3 Lymphocytes # (Auto) 2.1 TH/MM3 Monocytes # (Auto) 0.6 TH/MM3 Eosinophils # (Auto) 0.1 TH/MM3 Basophils # (Auto) 0.0 TH/MM3 CBC Comment DIFF FINAL Differential Comment Prothrombin Time 10.6 SEC Prothromb Time International Ratio 1.0 RATIO Activated Partial Thromboplast Time 25.9 SEC Blood Urea Nitrogen 8 MG/DL Creatinine 1.03 MG/DL Random Glucose 109 MG/DL Calcium Level 9.2 MG/DL Magnesium Level 2.5 MG/DL Sodium Level 140 MEQ/L Potassium Level 3.9 MEQ/L Chloride Level 107 MEQ/L Carbon Dioxide Level 25.9 MEQ/L Anion Gap 7 MEQ/L Estimat Glomerular Filtration Rate 92 ML/MIN Total Creatine Kinase 586 U/L Creatine Kinase MB 2.9 NG/ML Creatine Kinase MB % 0.5 % Troponin I LESS THAN 0.02 NG/ML Urine Opiates Screen NEG Urine Barbiturates Screen NEG Urine Amphetamines Screen NEG Urine Benzodiazepines Screen NEG Urine Cocaine Screen POS Urine Cannabinoids Screen NEG MDM Medical Decision Making Medical Screen Exam Complete: Yes Emergency Medical Condition: Yes Medical Record Reviewed: Yes Differential Diagnosis Cocaine associated chest pain, suicidal ideation, malingering, methamphetamine abuse, substance-induced mood disorder Narrative Course This is a 51-year-old male who was admitted on April 09 for chest pain. He was then transferred to inpatient psychiatric department for suicidal ideations on April 10. He was discharged yesterday from [facility] from the psychiatric unit. He returns today after using cocaine last night with continued complaint of left-sided chest pain that started again this morning and suicidal ideations of wanting to cut himself. History of schizophrenia. EKG, chest x-ray, CBC, BMP, troponin, CK-MB, coags, magnesium, drug screen, psych screening, alcohol screen ordered. Patient will be admitted to chest pain center for cocaine associated chest pain for continued evaluation and observation. 1814: CBC unremarkable. Coags unremarkable. BMP unremarkable. Total CPK 586 ; consistent with previous levels. Troponin less than 0.02. Drug Screen pending. Admission orders were chest pain center entered. Patient admitted for 23 hour observation in the [facility]. 1839: [facility] says they have already cleared the patient last week and will not take the patient again. I spoke with Dr. Franklin and the patient ill be admitted to medical for 23 hour OBS. Call placed to [facility]. 1848: I spoke with Dr. Morris and report give for patient admission for 23 hour obs. Physician Communication Physician Communication [facility] Jasso Diagnosis Primary Impression: Atypical chest pain Additional Impressions: Cocaine abuse Medical clearance for psychiatric admission Admitting Information Admitting Physician Requests: Observation Leda Goudl [facility] Apr 14, 2017 15:56
[2017-04-14 16:08] LABS: ANION GAP 7 MEQ/L (5-15); APTT (PATIENT) 25.9 SEC (24.3-30.1); BICARBONATE 25.9 MEQ/L (21.0-32.0); BLOOD UREA NITROGEN 8 MG/DL (7-18); CHLORIDE 107 MEQ/L (98-107); GLOMERULAR FILTRATION RATE 92 ML/MIN (>89); MAGNESIUM 2.5 MG/DL (1.5-2.5); POTASSIUM 3.9 MEQ/L (3.5-5.1); PROTHROMBIN TIME - PATIENT 10.6 SEC (9.8-11.6); SODIUM (NA) 140 MEQ/L (136-145)
[2017-04-14 16:13] LABS: CREATINE KINASE 586 U/L (39-308)
[2017-04-14 16:26] LABS: CKMB 2.9 NG/ML (0.5-3.6)
[2017-04-14 17:15] VITALS: BP 125/82; PULSE 95; RESP 18; TEMP 98.2; O2SAT 98
[2017-04-14 17:50] VITALS: BP 115/73; PULSE 75; RESP 18
[2017-04-14] MEDS ORDERED: SODIUM CHLORIDE 0.9% FLUSH 10 ML FLUSH IV FLUSH PRN (18:15)
[2017-04-14 21:27] LABS: ACETAMINOPHEN LESS THAN 2.0 MCG/ML (10.0-30.0); ALCOHOL LESS THAN 3 MG/DL (0-5)
[2017-04-14 21:30] LABS: CREATINE KINASE 495 U/L (39-308)
--- NOTE | 2017-04-14 21:34 | HHI.HP ---
[facility] Primary Care Physician No Primary Care Physician Admission Diagnosis atypical chest pain, cocaine abuse, suicidal ideation Diagnoses: Travel History International Travel<30 Days: No Contact w/Intl Traveler <30 Da: No Traveled to Known Affected Are: No History of Present Illness 51-year-old male with a past medical history significant for hypertension, hyperlipidemia and type 2 diabetes mellitus presents to the emergency department with suicidal ideation and chest pain. The patient was seen in the chest pain center on 04/10/17 where his stress test showed a small mild area of stress-induced ischemia of the anterior cardiac wall. The patient was seen by cardiology who recommended aggressive medical management with HANS inhibitor, statin and aspirin. The patient reports he awoke this morning with a sharp, knifelike left-sided chest pain since this morning. He also states he's had suicidal ideation without specific plans since this morning. He spent last night snorting cocaine. Drinks approximately 24 beers per day. Patient was recently treated in inpatient psychiatry for suicidal ideation. Review of Systems Denies fever or chills Denies blurry vision, otorrhea, rhinorrhea Denies sore throat and cough Positive chest pain, No palpitations, shortness of breath No abdominal pain Denies constipation/diarrhea/nausea/vomiting Denies muscle pain/weakness No rashes Past Family Social History Past Medical History Hypertension Type 2 diabetes mellitus Hyperlipidemia Past Surgical History None Reported Medications Reported Meds & Active Scripts Active Risperdal (Risperidone) 1 Mg Tab 1 Mg PO Q12HR Mirtazapine 15 Mg Tab 15 Mg PO HS Lisinopril 5 Mg Tab 2.5 Mg PO DAILY Atorvastatin (Atorvastatin Calcium) 20 Mg Tab 20 Mg PO HS Allergies: Coded Allergies: haloperidol (Verified Allergy, Intermediate, Swollen tongue, 04/14/17) Family History Both parents with diabetes mellitus Social History Drinks approximately 24 beers per day. Denies tobacco. Positive cocaine and marijuana, last night was last use. Physical Exam Vital Signs Vital Signs Date Time Temp Pulse Resp B/P (MAP) Pulse Ox O2 Delivery O2 Flow Rate FiO2 04/14/17 17:50 75 18 115/73 (87) Room Air 04/14/17 17:15 98.2 95 18 125/82 (96) 98 Room Air 04/14/17 17:14 98 Room Air 04/14/17 14:45 96 16 99 Nasal Cannula 2.00 04/14/17 14:43 97.8 92 18 131/82 (98) 99 Physical Exam GENERAL: male sitting up in bed SKIN: No rashes, ecchymoses or lesions. Cool and dry. HEAD: Atraumatic. Normocephalic. No temporal or scalp tenderness. EYES: Pupils equal round and reactive. Extraocular motions intact. No scleral icterus. No injection or drainage. ENT: Nose without bleeding, purulent drainage or septal hematoma. Throat without erythema, tonsillar hypertrophy or exudate. Uvula midline. Airway patent. NECK: Trachea midline. No JVD or lymphadenopathy. Supple, nontender, no meningeal signs. CARDIOVASCULAR: Regular rate and rhythm without murmurs, gallops, or rubs. RESPIRATORY: Clear to auscultation. Breath sounds equal bilaterally. No wheezes , rales, or rhonchi. GASTROINTESTINAL: Abdomen soft, non-tender, nondistended. No hepato-splenomegaly , or palpable masses. No guarding. MUSCULOSKELETAL: Extremities without clubbing, cyanosis, or edema. No joint tenderness, effusion, or edema noted. No calf tenderness. NEUROLOGICAL: Awake and alert. Cranial nerves II through XII intact. Motor and sensory grossly within normal limits. Normal speech. Laboratory Laboratory Tests Test 04/14/17 15:32 04/14/17 16:45 04/14/17 20:44 White Blood Count 4.9 Red Blood Count 4.99 Hemoglobin 14.7 Hematocrit 44.3 Mean Corpuscular Volume 88.8 Mean Corpuscular Hemoglobin 29.5 Mean Corpuscular Hemoglobin Concent 33.2 Red Cell Distribution Width 15.3 Platelet Count 171 Mean Platelet Volume 8.6 Neutrophils (%) (Auto) 40.6 Lymphocytes (%) (Auto) 43.8 Monocytes (%) (Auto) 12.1 Eosinophils (%) (Auto) 2.5 Basophils (%) (Auto) 1.0 Neutrophils # (Auto) 2.0 Lymphocytes # (Auto) 2.1 Monocytes # (Auto) 0.6 Eosinophils # (Auto) 0.1 Basophils # (Auto) 0.0 CBC Comment DIFF FINAL Differential Comment Prothrombin Time 10.6 Prothromb Time International Ratio 1.0 Activated Partial Thromboplast Time 25.9 Blood Urea Nitrogen 8 Creatinine 1.03 Random Glucose 109 Calcium Level 9.2 Magnesium Level 2.5 Sodium Level 140 Potassium Level 3.9 Chloride Level 107 Carbon Dioxide Level 25.9 Anion Gap 7 Estimat Glomerular Filtration Rate 92 Total Creatine Kinase 586 495 Creatine Kinase MB 2.9 Creatine Kinase MB % 0.5 Troponin I LESS THAN 0.02 LESS THAN 0.02 Salicylates Level LESS THAN 1.7 Acetaminophen Level LESS THAN 2.0 Ethyl Alcohol Level LESS THAN 3 Urine Opiates Screen NEG Urine Barbiturates Screen NEG Urine Amphetamines Screen NEG Urine Benzodiazepines Screen NEG Urine Cocaine Screen POS Urine Cannabinoids Screen NEG Result Diagram: 04/14/17 1532 04/14/17 153 Caprineligio VTE Risk Assessment Axelrini VTE Risk Assessment: No/Low Risk (score <= 1) Caprini Risk Assessment Model Point Value = 1 Point Value = 2 Point Value = 3 Point Value = 5 Age 41-60 Minor surgery BMI > 25 kg/m2 Swollen legs Varicose veins or History of unexplained or recurrent spontaneous Oral contraceptives or hormone replacement Sepsis (< 1 month) Serious lung disease, including pneumonia (< 1 month) Abnormal pulmonary function Acute myocardial infarction Congestive heart failure (< 1 month) History of inflammatory bowel disease Medical patient at bed rest Age 61-74 Arthroscopic surgery Major open surgery (> 45 min) Laparoscopic surgery (> 45 min) Malignancy Confined to bed (> 72 hours) Immobilizing plaster cast Central venous access Age >= 75 History of VTE Family history of VTE Factor V Leiden Prothrombin [id number] Lupus anticoagulant Anticardiolipin antibodies Elevated serum homocysteine Heparin-induced thrombocytopenia Other congenital or acquired thrombophilia Stroke (< 1 month) Elective arthroplasty Hip, pelvis, or leg fracture Acute spinal cord injury (< 1 month) Prophylaxis Regimen Total Risk Factor Score Risk Level Prophylaxis Regimen 0-1 Low Early ambulation 2 Moderate Order ONE of the following: *Sequential Compression Device (SCD) *Heparin 5000 units SQ BID 3-4 Higher Order ONE of the following medications: *Heparin 5000 units SQ TID *Enoxaparin/Lovenox 40 mg SQ daily (WT < 150 kg, CrCl > 30 mL/min) *Enoxaparin/Lovenox 30 mg SQ daily (WT < 150 kg, CrCl > 10-29 mL/min) *Enoxaparin/Lovenox 30 mg SQ BID (WT < 150 kg, CrCl > 30 mL/min) AND/OR *Sequential Compression Device (SCD) 5 or more Highest Order ONE of the following medications: *Heparin 5000 units SQ TID (Preferred with Epidurals) *Enoxaparin/Lovenox 40 mg SQ daily (WT < 150 kg, CrCl > 30 mL/min) *Enoxaparin/Lovenox 30 mg SQ daily (WT < 150 kg, CrCl > 10-29 mL/min) *Enoxaparin/Lovenox 30 mg SQ BID (WT < 150 kg, CrCl > 30 mL/min) AND *Sequential Compression Device (SCD) Assessment and Plan Assessment and Plan Assessment/plan: 1. Chest pain ACS rule out pending Initial troponin negative EKG showed NSR without ST segment depressions or elevations, reviewed by me ACS rule out pending; serial troponins/EKGs Seen by cardiology on 04/10/17 who recommends aggressive medical management with HANS inhibitor, statin and aspirin Avoid beta blockers for recent cocaine use Stress test at last visit showed mild area of stress-induced ischemia of the anterior cardiac wall 2. Suicidal ideation Psychiatry consulted, appreciate recommendations Sitter Continue medications started at last visit 3. Hypertension/hyperlipidemia Continue home medications 4. Diabetes mellitus SSI 5. FEN Heart healthy diet Electrolytes: Replete when necessary Amalia Manzo MD Apr 14, 2017 21:34
[2017-04-14 21:42] LABS: CKMB 2.4 NG/ML (0.5-3.6)
[2017-04-14] MEDS ORDERED: DEXTROSE 50% IN WATER 50 ML VIAL(D50) IV PUSH PRN (21:45)
[2017-04-14] MEDS ORDERED: FLUMAZENIL 0.5 MG/5 ML VIAL IV PUSH PRN (21:45)
[2017-04-14] MEDS ORDERED: LORazepam 2 MG/ML VIAL IV PUSH PRN ×4 (21:45)
[2017-04-14] MEDS ORDERED: GLUCAGON 1 MG/ML VIAL OTHER PRN (21:45)
[2017-04-14] MEDS ORDERED: LORazepam 1 MG TAB PO PRN (21:45)
[2017-04-14] MEDS ORDERED: LORazepam 2 MG TAB PO PRN (21:45)
[2017-04-14 22:21] VITALS: BP 116/80; PULSE 73; RESP 16; TEMP 97.8; O2SAT 95
[2017-04-14 23:16] VITALS: PULSE 67
[2017-04-14] MEDS: SODIUM CHLOR 0.9% 1000 ML INJ 1,000 ML IV SCH (23:30)
[2017-04-14] MEDS: SODIUM CHLORIDE 0.9% FLUSH 10 ML FLUSH IV FLUSH SCH (23:30)
[2017-04-15] VITALS (10 sets, daily range): BP systolic 100–120; BP diastolic 55–74; PULSE 56–70; RESP 16–18; TEMP 97.6–99.2; O2SAT 96–100
[2017-04-15 02:00] LABS: CREATINE KINASE 419 U/L (39-308)
[2017-04-15 02:12] LABS: CKMB 2.2 NG/ML (0.5-3.6)
[2017-04-15] MEDS: INSULIN ASPART SUPPLEMENTAL SCALE SQ SCH ×2 (08:00→12:00)
--- NOTE | 2017-04-15 08:33 | HHI.PR ---
Subjective Remarks Patient says the chest pain is resolved today. She said he had chest pain last time he tried cocaine as well. Objective Vital Signs Date Time Temp Pulse Resp B/P (MAP) Pulse Ox O2 Delivery O2 Flow Rate FiO2 04/15/17 08:13 60 04/15/17 07:44 98.0 62 18 111/63 (79) 97 04/15/17 05:19 99.2 60 18 111/55 (73) 100 04/15/17 04:15 56 04/15/17 01:08 98.1 68 18 120/74 (89) 97 04/15/17 00:02 70 04/14/17 23:16 67 04/14/17 22:21 97.8 73 16 116/80 (92) 95 04/14/17 17:50 75 18 115/73 (87) Room Air 04/14/17 17:15 98.2 95 18 125/82 (96) 98 Room Air 04/14/17 17:14 98 Room Air 04/14/17 14:45 96 16 99 Nasal Cannula 2.00 04/14/17 14:43 97.8 92 18 131/82 (98) 99 Result Diagram: 04/14/17 1532 04/14/17 1532 Objective Remarks GENERAL: Patient lying in bed on left side. Appears comfortable. SKIN: Warm and dry. HEAD: Normocephalic. EYES: No scleral icterus. No injection or drainage. NECK: Supple, trachea midline. No JVD or lymphadenopathy. CARDIOVASCULAR: Regular rate and rhythm without murmurs, gallops, or rubs. RESPIRATORY: Breath sounds equal bilaterally. No accessory muscle use. GASTROINTESTINAL: Abdomen soft, non-tender, nondistended. MUSCULOSKELETAL: No cyanosis, or edema. Patient has tenderness to palpation of bilateral pectoral muscles. BACK: Nontender without obvious deformity. No CVA tenderness. A/P Assessment and Plan //Chest pain ACS rule out pending Initial troponin negative EKG showed NSR without ST segment depressions or elevations, reviewed by me ACS rule out pending; serial troponins/EKGs Seen by cardiology on 04/10/17 who recommends aggressive medical management with HANS inhibitor, statin and aspirin Avoid beta blockers for recent cocaine use Stress test at last visit showed mild area of stress-induced ischemia of the anterior cardiac wall = Patient likely has stress-induced angina, currently exacerbated by cocaine. Chest pain resolved today. Previous stress test with mild area of stress- induced ischemia, however this should be managed medically. Current discomfort appears to be musculoskeletal. If patient develops chest pain without cocaine use, would consider cardiac catheterization, although patient would need to comply with anticoagulation. Continue aspirin, HANS inhibitor. 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 //Suicidal ideation Psychiatry consulted, appreciate recommendations Sitter Continue medications started at last visit = Psychiatry consult pending. Appreciate assistance. //Hypertension/hyperlipidemia Continue home medications- //Diabetes mellitus Glucose acceptable. Continue SSI //FEN Heart healthy diet Electrolytes: Replete when necessary Discharge Planning Likely can discharge home when cleared by psychiatry. Donato Morris MD Apr 15, 2017 08:33
[2017-04-15] MEDS ORDERED: LISINOPRIL 5 MG TAB PO SCH ×2 (09:00)
[2017-04-15] MEDS ORDERED: THIAMINE HCL 100 MG TAB PO SCH (09:00)
[2017-04-15] MEDS ORDERED: ASPIRIN 81 MG CHEW TAB CHEW SCH (09:00)
[2017-04-15] MEDS ORDERED: FOLIC ACID 1 MG TAB PO SCH (09:00)
[2017-04-15] MEDS: SODIUM CHLORIDE 0.9% FLUSH 10 ML FLUSH IV FLUSH SCH (09:00)
[2017-04-15] MEDS ORDERED: risperiDONE 1 MG TAB PO SCH (09:00)
[2017-04-15] MEDS ORDERED: MULTIVITAMINS/MINERALS THERAPEUTIC TAB PO SCH (09:00)
[2017-04-15] MEDS: SODIUM CHLOR 0.9% 1000 ML INJ 1,000 ML IV SCH (09:47)
--- NOTE | 2017-04-15 14:03 | EKG ---
Date Performed: 04/14/2017 Time Performed: 15:07:06 PTAGE: 51 years EKG: Sinus rhythm NONSPECIFIC T-WAVE ABNORMALITY BORDERLINE ECG Compared to PREVIOUS TRACING , the right ventricular conduction disturbance is still present, the T-w ave changes are slightly more prominent in lead V6 only. PREVIOUS TRACIN04/09/2017 13.37 DOCTOR: Trino Salazar Interpretating Date/Time 04/15/2017 14:02:26
--- NOTE | 2017-04-15 14:04 | EKG ---
Date Performed: 04/14/2017 Time Performed: 20:47:56 PTAGE: 51 years EKG: Sinus rhythm WITH SINUS ARRHYTHMIA NONSPECIFIC T-WAVE ABNORMALITY SLIGHT RIGHT VENTRICULAR DISTURBANCE BORDERLINE ECG Since PREVIOUS TRACING , no significant change noted PREVIOUS TRACIN04/14/2017 15.07 DOCTOR: Trino Salazar Interpretating Date/Time 04/15/2017 14:03:03
--- NOTE | 2017-04-15 14:04 | EKG ---
Date Performed: 04/15/2017 Time Performed: 01:21:38 PTAGE: 51 years EKG: Sinus rhythm POSSIBLE LEFT ATRIAL ENLARGEMENT INCOMPLETE RIGHT BUNDLE BRANCH BLOCK NONSPECIFIC T-WAVE ABNORMALITY BORDERLINE ECG Since PREVIOUS TRACING , no significant change noted PREVIOUS TRACIN04/14/2017 20.47 DOCTOR: Trino Salazar Interpretating Date/Time 04/15/2017 14:03:30
--- NOTE | 2017-04-15 15:30 | PD.PSY.CON ---
Provisional Diagnosis Admission Date Apr 14, 2017 at 18:18 [place]. Substance abuse mood disorder History of Present Illness Service Psychiatry Consult Requested By ED Reason for Consult Suicidal ideations Primary Care Physician No Primary Care Physician HPI Patient is a 51-year-old man currently engaged has 1 adult child with child's mother, recently domiciled with a friend, unemployed on SSI, with past psychiatric history of self-reported schizophrenia, 2 prior psychiatric hospitalizations (recently discharged [facility] 2 days ago), 2 previous suicide attempts (last 2 years ago), no self at his behavior with alcohol use disorder and cocaine use disorder who is evaluated in the ER due to chest pain and had endorsed suicidal ideations last evening which psychiatry was consulted for evaluation. Patient was found lying in hospital bed, cooperative with sitter at bedside patient states that he came to the hospital due to chest pain continue be monitored for the same. He states that he had recently used cocaine and alcohol prior to his presentation in the ER. Patient states that his mood has been "rough" reporting feeling depressed and angry due to his current situation currently denies any suicide ideation at this time stated the last and he felt that this was yesterday. He also reports less having had auditory hallucination was yesterday and currently does not endorse this at this time. Patient states that his feeling a bit upset that he did not know what he is going to do when he is discharged from the hospital where he is going to stay. Patient states that he has been having some decreased sleep and energy but that she is in appetite at times having suicidal ideations but last was yesterday. Patient denies any homicidal ideation or perceptual disturbances at this time. Patient after discharge did not attend his outpatient follow-up at [facility] for mental health services nor for rehabilitation program. Patient states he has been having difficulty getting to his appointment due to not having transportation and requests if possible having assistance in passes for transportation so he can go to his follow-up. Past Family Social History Coded Allergies: haloperidol (Verified Allergy, Intermediate, Swollen tongue, 04/14/17) Active Scripts Risperidone (Risperdal) 1 Mg Tab, 1 MG PO Q12HR for health, #60 TAB 0 Refills Prov:Arslan Momin MD 04/13/17 Mirtazapine (Mirtazapine) 15 Mg Tab, 15 MG PO HS for health, #30 TAB 0 Refills Prov:Arslan Momin MD 04/13/17 Lisinopril (Lisinopril) 5 Mg Tab, 2.5 MG PO DAILY for HTN, #30 TAB Prov:Amalia Manzo MD 04/10/17 Atorvastatin (Atorvastatin) 20 Mg Tab, 20 MG PO HS for HLD, #30 TAB Prov:Amalia Manzo MD 04/10/17 Discontinued Scripts Aspirin (Px Aspirin) 325 Mg Tab, 325 MG PO DAILY for HTN, #30 TAB Prov:Amalia Manzo MD 04/10/17 Current Medications Medications (Trade) Dose Ordered Sig/Sachin Route Start Time Stop Time Status Last Admin (NS Flush) 2 ml UNSCH PRN IV FLUSH 04/14/17 18:15 (NS Flush) 2 ml BID IV FLUSH 04/14/17 21:00 04/14/17 23:30 Sodium Chloride 1,000 ml @ 100 mls/hr Q10H IV 04/14/17 19:00 04/15/17 09:47 (Lipitor) 20 mg HS PO 04/15/17 21:00 (Prinivil) 2.5 mg DAILY PO 04/15/17 09:00 04/15/17 09:48 (Remeron) 15 mg HS PO 04/15/17 21:00 (risperDAL) 1 mg Q12HR PO 04/15/17 09:00 04/15/17 09:48 (Aspirin Chew) 81 mg DAILY CHEW 04/15/17 09:00 04/15/17 09:48 (Folate) 1 mg DAILY PO 04/15/17 09:00 04/20/17 08:59 04/15/17 09:48 (Vitamin B1) 100 mg DAILY PO 04/15/17 09:00 04/15/17 09:48 (Theragran M Tab) 1 tab DAILY PO 04/15/17 09:00 04/20/17 08:59 04/15/17 09:48 (Romazicon Inj) 0.2 mg Q1M PRN IV PUSH 04/14/17 21:45 (Ativan) 1 mg Q4H PRN PO 04/14/17 21:45 (Ativan Inj) 1 mg Q4H PRN IV PUSH 04/14/17 21:45 (Ativan) 2 mg Q2H PRN PO 04/14/17 21:45 (Ativan Inj) 2 mg Q2H PRN IV PUSH 04/14/17 21:45 (Ativan Inj) 2 mg Q1H PRN IV PUSH 04/14/17 21:45 (Ativan Inj) 2 mg Q15M PRN IV PUSH 04/14/17 21:45 (D50w (Vial) Inj) 50 ml UNSCH PRN IV PUSH 04/14/17 21:45 (Glucagon Inj) 1 mg UNSCH PRN OTHER 04/14/17 21:45 (NovoLOG SUPPLEMENTAL SCALE) 1 ACHS SLIDING SCALE SQ 04/15/17 08:00 Physical Exam Vital Signs Vital Signs Date Time Temp Pulse Resp B/P (MAP) Pulse Ox O2 Delivery O2 Flow Rate FiO2 04/15/17 12:46 69 04/15/17 11:59 97.6 18 111/71 (84) 96 04/15/17 07:56 21 04/14/17 17:50 Room Air 04/14/17 14:45 2.00 I/O 04/15/17 04/15/17 04/16/17 08:00 16:00 00:00 Intake Total 1000 ml Balance 1000 ml Lab Results Test 04/14/17 15:32 04/14/17 16:45 04/14/17 20:44 04/15/17 01:17 White Blood Count 4.9 TH/MM3 Red Blood Count 4.99 MIL/MM3 Hemoglobin 14.7 GM/DL Hematocrit 44.3 % Mean Corpuscular Volume 88.8 FL Mean Corpuscular Hemoglobin 29.5 PG Mean Corpuscular Hemoglobin Concent 33.2 % Red Cell Distribution Width 15.3 % Platelet Count 171 TH/MM3 Mean Platelet Volume 8.6 FL Neutrophils (%) (Auto) 40.6 % Lymphocytes (%) (Auto) 43.8 % Monocytes (%) (Auto) 12.1 % Eosinophils (%) (Auto) 2.5 % Basophils (%) (Auto) 1.0 % Neutrophils # (Auto) 2.0 TH/MM3 Lymphocytes # (Auto) 2.1 TH/MM3 Monocytes # (Auto) 0.6 TH/MM3 Eosinophils # (Auto) 0.1 TH/MM3 Basophils # (Auto) 0.0 TH/MM3 CBC Comment DIFF FINAL Differential Comment Prothrombin Time 10.6 SEC Prothromb Time International Ratio 1.0 RATIO Activated Partial Thromboplast Time 25.9 SEC Blood Urea Nitrogen 8 MG/DL Creatinine 1.03 MG/DL Random Glucose 109 MG/DL Calcium Level 9.2 MG/DL Magnesium Level 2.5 MG/DL Sodium Level 140 MEQ/L Potassium Level 3.9 MEQ/L Chloride Level 107 MEQ/L Carbon Dioxide Level 25.9 MEQ/L Anion Gap 7 MEQ/L Estimat Glomerular Filtration Rate 92 ML/MIN Total Creatine Kinase 586 U/L 495 U/L 419 U/L Creatine Kinase MB 2.9 NG/ML 2.4 NG/ML 2.2 NG/ML Creatine Kinase MB % 0.5 % 0.5 % 0.5 % Troponin I LESS THAN 0.02 NG/ML LESS THAN 0.02 NG/ML LESS THAN 0.02 NG/ML Salicylates Level LESS THAN 1.7 MG/DL Acetaminophen Level LESS THAN 2.0 MCG/ML Ethyl Alcohol Level LESS THAN 3 MG/DL Urine Opiates Screen NEG Urine Barbiturates Screen NEG Urine Amphetamines Screen NEG Urine Benzodiazepines Screen NEG Urine Cocaine Screen POS Urine Cannabinoids Screen NEG Mental Status Examination Appearance: Appropriate Consciousness: Alert Orientation: Person, Place, Date/Time Speech: Unremarkable Language: Adequate Fund of Knowledge: Adequate Attention and Concentration: Adequate Memory: Unremarkable Mood: Appropriate Affect: Other Thought Process & Associations: Linear (restricted) Thought Content: Appropriate Hallucination Type: None Delusion Type: None Suicidal Ideation: No Suicidal Plan: No Suicidal Intention: No Homicidal Ideation: No Homicidal Plan: No Homicidal Intention: No Insight: Fair Judgment: Impulsive Assessment & Plan Problem List: (1) Substance induced mood disorder ICD Codes: F19.94 - Other psychoactive substance use, unspecified with psychoactive substance-induced mood disorder Assessment & Plan Patient is a 51-year-old man who carries self-reported diagnosis of schizophrenia, previous psychiatric hospitalizations, 2 remote suicide attempts was recently discharged [facility] ago and recently relapsed into alcohol cocaine use which he started having chest pain and presented to the ER for the same. Patient at this time denies having any suicidal ideations, continues report feeling depressed but can continue outpatient follow-up for treatment of depressed mood as well as engagement in rehabilitation program for alcohol and cocaine abuse. Patient has limited resources and is asking for assistance for transportation to get to his appointment. Patient previously staying with a friend and may require referral from social work for options of where he can go and stay in the meantime. Patient at this time has no acute psychiatric symptoms that would require inpatient psychiatric service as he was recently discharged from the abuse psychiatry unit with plan for him to follow up outpatient to continue treatment and engage in rehabilitation program which would benefit the patient at this time. It is recommended patient continue outpatient follow-up at [facility] as well as engage in rehabilitation there as well. Patient to continue recommendations as per primary medical team. Consult appreciated. Yon Corado MD Apr 15, 2017 15:30
[2017-04-15] MEDS ORDERED: ASPI81 PO (16:18)
[2017-04-15] MEDS ORDERED: ATORVASTATIN 20 MG TAB PO SCH (21:00)
[2017-04-15] MEDS ORDERED: MIRTAZAPINE 15 MG TAB PO SCH (21:00)
== END 2017-04-15 17:37 | disposition home or self-care (01) ==
LOC: NEPD 14:35 → NEDA 18:18 → NEPGCP 21:07
PROVIDERS: ADMIT Hospitalist; ATTEND Hospitalist
DX: R07.89 Other chest pain (principal); R45.851 Suicidal ideations; R06.02 Shortness of breath; I10 Essential (primary) hypertension; I45.10 Unspecified right bundle-branch block; I49.9 Cardiac arrhythmia, unspecified; E78.5 Hyperlipidemia, unspecified; E11.9 Type 2 diabetes mellitus without complications; F20.9 Schizophrenia, unspecified; Z79.899 Other long term (current) drug therapy
CPT/HCPCS: 71010; 80048; 80307; 82550; 82552; 82948; 83735; 84484; 85025; 85610; 85730; 93005; 96360; 96361; 99285; G0378; J7030

== ENCOUNTER 2017-04-15 19:47 | Emergency (ER) | payer OTHER ==
[~2017-04-15 19:47] MED LIST changes: -ASA325 PO; +ASPI81 PO
[2017-04-15 19:49] VITALS: BP 126/85; PULSE 69; RESP 16; TEMP 97.8; O2SAT 99
[2017-04-15 20:40] VITALS: BP 129/77; PULSE 72; RESP 18; O2SAT 97
--- NOTE | 2017-04-15 20:46 | PD ---
HPI Chief Complaint: Psychiatric Symptoms Time Seen by Provider: 20:37 Travel History International Travel<30 days: No Contact w/Intl Traveler<30days: No Traveled to known affect area: No History of Present Illness HPI 51-year-old male here for evaluation reporting suicidal ideation. This is the patient's fourth visit to the emergency Department in the last week. He states that his significant other lives in [place], however because he reports feeling suicidal, she told him to seek help. He presented complaining of chest pain twice this last week, was admitted yesterday for this, was ruled out for an NC, and discharged to [facility] for psychiatric help. The patient admits to using cocaine, last use was 2 days ago. States that [facility] would not accept his insurance, therefore he is here again for help with suicidal ideation. He reports thoughts of cutting himself or overdosing on medications. He denies doing anything today to harm himself. No toxic ingestions. He denies any physical complaints today. No chest pain. PFSH Past Medical History Depression: Yes Heart Rhythm Problems: No Cancer: No Cardiac Catheterization: No Cardiovascular Problems: Yes High Cholesterol: Yes Congestive Heart Failure: No Diabetes: Yes Endocrine: Yes Genitourinary: No Hypertension: Yes Immune Disorder: No Musculoskeletal: Yes (Lower back pain) Neurologic: No Psychiatric: Yes Reproductive: No Respiratory: No Schizophrenia: Yes Thyroid Disease: No Past Surgical History Coronary Artery Bypass Graft: No Insulin Pump: No Pacemaker: No Social History Alcohol Use: Yes (PT REPORTS 24 PACK BEER PER DAY) Tobacco Use: No Substance Use: Yes (cocaine) Allergies-Medications (Allergen,Severity, Reaction): Coded Allergies: haloperidol (Verified Allergy, Intermediate, Swollen tongue, 04/15/17) Reported Meds & Prescriptions Reported Meds & Active Scripts Active Tgt Aspirin (Aspirin) 81 Mg Chw 81 Mg PO DAILY 30 Days Risperdal (Risperidone) 1 Mg Tab 1 Mg PO Q12HR Mirtazapine 15 Mg Tab 15 Mg PO HS Lisinopril 5 Mg Tab 2.5 Mg PO DAILY Atorvastatin (Atorvastatin Calcium) 20 Mg Tab 20 Mg PO HS Review of Systems Except as stated in HPI: all other systems reviewed are Neg Physical Exam Narrative GENERAL: Well-developed, well-nourished, comfortable, no apparent distress. SKIN: Focused skin assessment warm/dry. HEAD: Atraumatic. Normocephalic. EYES: Pupils equal and round. No scleral icterus. No injection or drainage. ENT: No nasal bleeding or discharge. Mucous membranes pink and moist. NECK: Trachea midline. No JVD. CARDIOVASCULAR: Regular rate and rhythm. RESPIRATORY: No accessory muscle use. Clear to auscultation. Breath sounds equal bilaterally. GASTROINTESTINAL: Abdomen soft, non-tender, nondistended. Hepatic and splenic margins not palpable. MUSCULOSKELETAL: No obvious deformities. No clubbing. No cyanosis. No edema. NEUROLOGICAL: Awake and alert. No obvious cranial nerve deficits. Motor grossly within normal limits. Normal speech. PSYCHIATRIC: Appropriate mood and affect; insight and judgment normal. Data Data Last Documented VS Vital Signs Date Time Temp Pulse Resp B/P (MAP) Pulse Ox O2 Delivery O2 Flow Rate FiO2 04/15/17 20:40 72 18 129/77 (94) 97 Room Air 04/15/17 19:49 97.8 Orders Orders Psych Screen (04/15/17 20:40) [facility] Medical Decision Making Medical Screen Exam Complete: Yes Emergency Medical Condition: Yes Differential Diagnosis Depression, suicidal ideation, malingering Narrative Course Vital signs are within normal limits. The patient had lab work performed yesterday and was unremarkable. I do not feel that repeat labs are warranted today. The patient is medically cleared for psychiatric evaluation and disposition by them. Diagnosis Primary Impression: Medical clearance for psychiatric admission Andrew Olivier MD Apr 15, 2017 20:46
[2017-04-15 20:57] VITALS: BP 126/82; PULSE 65; RESP 20; TEMP 98.2; O2SAT 98
[2017-04-16 02:11] VITALS: BP 109/56; PULSE 58; RESP 18; TEMP 98.1; O2SAT 100
[2017-04-16 06:21] VITALS: BP 110/66; PULSE 60; RESP 18; TEMP 99.2; O2SAT 98
[2017-04-16 10:30] VITALS: BP 121/72; PULSE 69; RESP 18
--- NOTE | 2017-04-16 11:00 | PD ---
Physical Exam Date Seen by Provider: Apr 16, 2017 Time Seen by Provider: 10:59 Narrative 51-year-old male previously medically cleared for psychiatric evaluation for reported suicidal ideation, has been evaluated by psychiatric staff and felt to be safe for discharge with outpatient follow-up plan. Patient continues to be medically cleared for discharge. Follow up is as per psychiatric note. Data Data Last Documented VS Vital Signs Date Time Temp Pulse Resp B/P (MAP) Pulse Ox O2 Delivery O2 Flow Rate FiO2 04/16/17 10:30 69 18 121/72 (88) Room Air 04/16/17 06:21 99.2 98 Orders Orders Psych Screen (04/15/17 20:40) Diet Diabetic (04/16/17 Breakfast) MDM Medical Record Reviewed: Yes Supervised Visit with ISABELLA: Yes Narrative Course 51-year-old male previously medically cleared for psychiatric evaluation for reported suicidal ideation, has been evaluated by psychiatric staff and felt to be safe for discharge with outpatient follow-up plan. Patient continues to be medically cleared for discharge. Follow up is as per psychiatric note. Diagnosis Primary Impression: Medical clearance for psychiatric admission Patient Instructions: General Instructions Additional Instruction: Follow-up as per psychiatric note. Disposition: 01 DISCHARGE HOME Condition: Stable Oswald Kendrick Apr 16, 2017 11:00
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
== END 2017-04-16 12:33 | disposition home or self-care (01) ==
LOC: NEPD 19:47 → NEPJ 04-16 12:33
DX: Z02.89 Encounter for other administrative examinations (principal); F14.10 Cocaine abuse, uncomplicated; F19.94 Other psychoactive substance use, unspecified with psychoactive substance-induced mood disorder; R45.851 Suicidal ideations; F10.10 Alcohol abuse, uncomplicated; E11.9 Type 2 diabetes mellitus without complications; I10 Essential (primary) hypertension; E78.00 Pure hypercholesterolemia, unspecified; F20.9 Schizophrenia, unspecified; F32.9 Major depressive disorder, single episode, unspecified; Z86.79 Personal history of other diseases of the circulatory system; Z87.39 Personal history of other diseases of the musculoskeletal system and connective tissue
CPT/HCPCS: 99284

== ENCOUNTER 2017-05-06 00:27 | Inpatient (IN) | payer OTHER ==
[~2017-05-06] VITALS: Ht 172.7 cm; Wt 103.1 kg
--- NOTE | 2017-05-06 00:53 | PD ---
HPI Chief Complaint: Ramirez act Time Seen by Provider: 00:39 Travel History International Travel<30 days: No Contact w/Intl Traveler<30days: No Traveled to known affect area: No History of Present Illness HPI 52-year-old black male presents to emergency department under Ramirez act by PD. Patient states that he has become acutely suicidal after having an argument with his friend. He states that he will overdose on his medications. He also states that he would like to hurt his friend. Patient denies any toxic ingestions. No injuries or recent medical complaints. He just moved to the area 3 weeks ago from [facility] Past Medical History Narrative Medical Depression, diabetes, hypertension, hypercholesterolemia, chronic back pain Depression: Yes Heart Rhythm Problems: No Cancer: No Cardiac Catheterization: No Cardiovascular Problems: Yes High Cholesterol: Yes Congestive Heart Failure: No Diabetes: Yes Diminished Hearing: No Endocrine: Yes Gastrointestinal Disorders: No Genitourinary: No Hypertension: Yes Immune Disorder: No Implanted Vascular Access Dvce: No Musculoskeletal: Yes (Lower back pain) Neurologic: No Psychiatric: Yes Reproductive: No Respiratory: No Schizophrenia: Yes Thyroid Disease: No Tetanus Vaccination: Unknown Past Surgical History Surgical History: No Previous Surgery Coronary Artery Bypass Graft: No Insulin Pump: No Pacemaker: No Other Surgery: No Social History Alcohol Use: Yes (PT REPORTS 24 PACK BEER PER DAY) Tobacco Use: No Substance Use: Yes (cocaine) Allergies-Medications (Allergen,Severity, Reaction): Coded Allergies: haloperidol (Verified Allergy, Intermediate, Swollen tongue, 04/15/17) Reported Meds & Prescriptions Reported Meds & Active Scripts Active Tgt Aspirin (Aspirin) 81 Mg Chw 81 Mg PO DAILY 30 Days Risperdal (Risperidone) 1 Mg Tab 1 Mg PO Q12HR Mirtazapine 15 Mg Tab 15 Mg PO HS Lisinopril 5 Mg Tab 2.5 Mg PO DAILY Atorvastatin (Atorvastatin Calcium) 20 Mg Tab 20 Mg PO HS Review of Systems General / Constitutional: No: Fever Eyes: No: Visual changes HENT: No: Headaches Cardiovascular: No: Chest Pain or Discomfort Respiratory: No: Shortness of Breath Gastrointestinal: No: Abdominal Pain Genitourinary: No: Dysuria Musculoskeletal: No: Pain Skin: No Rash Neurologic: No: Weakness Psychiatric: Positive: Depression, Suicidal Ideations, Mood Disorder, Substance Abuse, Homicidal Ideation, No: Anxiety, Disorder of Thought Endocrine: No: Polydipsia Hematologic/Lymphatic: No: Easy Bruising Physical Exam Narrative GENERAL: Well-nourished, well-developed patient. SKIN: Warm and dry. HEAD: Normocephalic and atraumatic. EYES: No scleral icterus. No injection or drainage. ENT: No nasal drainage noted. Mucous membranes pink. Airway patent. NECK: Supple, trachea midline. Moves head freely without obvious discomfort. CARDIOVASCULAR: Regular rate and rhythm without murmurs, gallops, or rubs. RESPIRATORY: Breath sounds equal bilaterally. No accessory muscle use. GASTROINTESTINAL: Abdomen soft, non-tender, nondistended. EXTREMITIES: No cyanosis or edema. BACK: Nontender without obvious deformity. No CVA tenderness. NEURO: Patient is alert and oriented. no sensorimotor deficits. Nonfocal. Normal speech. PSYCH: No delusions. No auditory or visual hallucinations. Data Data Orders Orders Psych Screen (05/06/17 00:53) Drug Screen, Random Urine (05/06/17 00:53) Alcohol (Ethanol) (05/06/17 00:53) Labs Laboratory Tests Test 05/06/17 01:10 Urine Opiates Screen NEG Urine Barbiturates Screen NEG Urine Amphetamines Screen NEG Urine Benzodiazepines Screen NEG Urine Cocaine Screen POS Urine Cannabinoids Screen NEG Ethyl Alcohol Level 10 MG/DL MDM Medical Decision Making Medical Screen Exam Complete: Yes Emergency Medical Condition: Yes Medical Record Reviewed: Yes Interpretation(s) Laboratory Tests Test 05/06/17 01:10 Urine Opiates Screen NEG Urine Barbiturates Screen NEG Urine Amphetamines Screen NEG Urine Benzodiazepines Screen NEG Urine Cocaine Screen POS Urine Cannabinoids Screen NEG Ethyl Alcohol Level 10 MG/DL Differential Diagnosis MDM: High Differential diagnoses: Schizophrenia, schizoaffective disorder, bipolar, anxiety, depression, adjustment reaction, mood disorder NOS, ODD, depressive disorder NOS, dementia, dementia with agitation, psychosis NOS, substance induced mood disorder, DMDD, Asperger syndrome, infection,electrolyte abnormality, malingering. Narrative Course Mental health screening discussed with the patient. Psychiatric screen ordered. The patient is been medically cleared. I suspect this is more of a substance induced mood disorder along with malingering on the patient's behalf in order to ascertain a domicile. Patient has multiple suitcases and articles of clothing with him. This medical clearance for psychiatric admission, substance abuse Diagnosis Primary Impression: Medical clearance for psychiatric admission Additional Impression: Substance abuse Condition: Stable Keelen,Jayant T. PA May 06, 2017 00:53
[2017-05-06 03:31] VITALS: BP 113/59; PULSE 88; RESP 18; TEMP 98.2; O2SAT 97
[2017-05-06 05:31] VITALS: BP 122/66; PULSE 82; RESP 17; TEMP 98.3; O2SAT 97
[2017-05-06] MEDS ORDERED: LORazepam 1 MG TAB PO PRN (08:45)
[2017-05-06] MEDS ORDERED: MAGNESIUM HYDROXIDE SUSP 30 ML CUP PO PRN (08:45)
[2017-05-06] MEDS ORDERED: BENZTROPINE MESYLATE 2 MG/2 ML VIAL IM PRN (08:45)
[2017-05-06] MEDS ORDERED: ACETAMINOPHEN 325 MG TAB PO PRN (08:45)
[2017-05-06] MEDS ORDERED: LORazepam 2 MG/ML VIAL IV PUSH PRN ×4 (08:45)
[2017-05-06] MEDS ORDERED: ALUMINUM/MAGNESIUM/SIMETH 30 ML CUP PO PRN (08:45)
[2017-05-06] MEDS ORDERED: NICOTINE 21 MG/24 HR PATCH T-DERMAL PRN (08:45)
[2017-05-06] MEDS ORDERED: LORazepam 2 MG TAB PO PRN (08:45)
[2017-05-06] MEDS ORDERED: FLUMAZENIL 0.5 MG/5 ML VIAL IV PUSH PRN (08:45)
[2017-05-06] MEDS ORDERED: BENZTROPINE MESYLATE 1 MG TAB PO PRN (08:45)
[2017-05-06] MEDS: FOLIC ACID 1 MG TAB PO SCH (09:00)
[2017-05-06] MEDS: LISINOPRIL 5 MG TAB PO SCH (09:00)
[2017-05-06] MEDS: THIAMINE HCL 100 MG TAB PO SCH (09:00)
[2017-05-06] MEDS ORDERED: PILL SPLITTER OTHER PRN (09:00)
[2017-05-06] MEDS: REMOVE OLD PATCH T-DERMAL SCH (09:00)
[2017-05-06] MEDS: ASPIRIN 81 MG CHEW TAB PO SCH (09:00)
--- NOTE | 2017-05-06 09:26 | MH ---
cc: RENE DELGADILLO DATE OF ADMISSION: 05/06/2017 ADMITTING DIAGNOSES 1. Adjustment disorder with depressed mood. 2. Cocaine abuse. 3. Alcohol abuse. LEGAL STATUS: The patient is capacitated to consent for admission and for medications / treatment. Voluntary status. HISTORY OF PRESENT ILLNESS Mr. Wolff is a 52-year-old -[place] male with a self-reported history of schizophrenia who presents under a Ramirez ACT from [place] [employer] alleging that the patient said he wanted to kill himself because of an argument with his girlfriend. He told the officers that he would overdose on medication. Reviewing the electronic medical record, I note the patient was seen in consultation by Dr. Corado on April 15 with a diagnosis at that time of drug induced mood disorder and was also admitted under Dr. Momin from the through the of this month. The patient seen and examined. Chart reviewed. Case discussed with nursing staff. The patient has apparently been threatening suicide in the J pod and has been placed with a one-to-one sitter. On my evaluation this morning, the patient is visibly quaking. He is emotionally distressed. He tells me that he had an argument with the friend with whom he is staying and also broke up with his fiance 1 week ago. He says that he did not feel like the Risperdal and antidepressant that he had been prescribed last time were helping and so he stopped these medications a few days ago. He says that in the setting of this medication nonadherence along with these psychosocial stressors he has been feeling increasingly depressed and suicidal x1 day. He says that he has been experiencing "visions telling me to harm myself and others." He endorses ongoing suicidal ideation with plans to "take pills, do anything." He does not reliably contract for safety on the inpatient unit. He does not verbalize any homicidal ideation but is allegedly experiencing reportedly experiencing these command auditory hallucinations to hurt others as I said. No delusional material elicited. No hypomanic or manic symptoms. Besides the patients acute dysphoria, no real depressive symptoms elicited. The remainder of the psychiatric ROS is negative. The patient has no physical complaints at this time except for chronic low-back pain. PAST PSYCHIATRIC HISTORY The patient reports a history of schizophrenia. He is not currently under the care of a psychiatrist. His most recent admission was the one under Dr. Momin as I said. FAMILY HISTORY The patient reports a history of bipolar disorder in a sister and brother. CHEMICAL DEPENDENCY HISTORY: The patient admits to use a powder cocaine. He also says that he self medicate for his low back pain by drinking about a case of beer daily. He denies any history of DTs or seizures. SOCIAL HISTORY The patient reports that he had been staying with a friend although they have recently had an argument and I suspect that this housing has been jeopardized. He is otherwise homeless. He has an 11th grade education. He collects disability. He denies any history. Denies any legal history. He tells me that he knows how to access the gun if needed from a friend. He is single with a 22-year-old daughter with whom he has limited contact. PAST MEDICAL HISTORY Includes a history of low back pain. MEDICATIONS The patient was discharged most recently on 1. Risperdal. 2. Remeron. 3. He also reports that he takes oxycodone for his low back pain. ALLERGIES HALDOL REVIEW OF SYSTEMS Except as noted in HPI this is negative. PHYSICAL EXAMINATION: VITAL SIGNS: Temperature is 98.3, pulse 82, respirations 17, blood pressure 122/66, pulse oximetry 97% on room air. Physical examination was completed by the ED provider. On my examination today, the patient does not appear to be and physical distress although he does appear to be in a fair amount of psychic distress. No motor abnormalities noted besides the quaking and rocking behavior. No signs of withdrawal noted. LABORATORY Reviewed: Urine toxicology positive for cocaine and alcohol level was slightly elevated at 10. A CBC and CMP were not obtained this admission but were obtained on the eigth. The CBC was unremarkable at that time and BMP was obtained on the and the BMP was likewise unremarkable at that time except for mild hyperglycemia. EKG performed on the was read as sinus rhythm with a QTC age of 413 milliseconds. MENTAL STATUS EXAM The patient is in hospital attire. He is somewhat disheveled. He is awake, alert and oriented x4. He is somewhat psychomotor agitated as noted above. Speech is within normal limits for rate, tone and volume. Language and fund of knowledge average. Focus distracted and concentration impaired. Memory grossly intact on clinical exam. Mood is broadly dysphoric and affect is consistent with stated mood. Thought process linear. No loosening of associations. No delusions elicited. Endorses command auditory hallucinations to hurt self / others, although he does not appear to be particularly internally stimulated. Endorses ongoing suicidal ideation with plan as noted above. He does not verbalize homicidal ideation but is unreliable to contract for safety presently. Insight and judgment are likely poor. ASSESSMENT/PLAN This is a 52-year-old -[place]ian male with psychiatric history as detailed above who presents under the Ramirez ACT. On my examination today, the patient reports command auditory hallucinations and dysphoria in the setting of cocaine use and psychosocial stressors as well as medication nonadherence. My differential diagnosis for presenting symptoms would include jd jeniffer psychotic disorder in acute exacerbation, adjustment reaction, drug induced mood / psychotic disorder, or malingering for correction as I suspect he is presently homeless following an argument with the friend who is housing him. Given the severity of the patient's reported symptoms. I will plan to admit the patient to the inpatient psychiatric unit for observation and for safety, observation, and medication change. Admit inpatient. Voluntary status. Check an updated set of basic laboratories in the morning. I will replace the patient's Risperdal with Seroquel 50 mg twice daily. R/B/A discussed with the patient. I will continue the patient's Remeron at night. I have asked the nurse to obtain a medication list from the patient's pharmacy to see if indeed he is receiving opiate pain medications. CIWA scale with Ativan for the management of any withdrawal. Thiamine and folate. Seizure and fall precautions. 1:1 precautions as patient is not presently lucero for safety on the inpatient unit. Vitals every shift. Counselor to see. Disposition planning. Estimated length of stay: 3-5 days. Rene Delgadillo DC/omar /8:22 AM /9:02 AM LENNY
[2017-05-06 12:25] VITALS: BP 122/72; PULSE 70; RESP 18; TEMP 98; O2SAT 99
[2017-05-06] MEDS: QUEtiapine FUMARATE 25 MG TAB PO SCH ×2 (21:00→21:18)
[2017-05-06] MEDS: MIRTAZAPINE 15 MG TAB PO SCH (21:18)
[2017-05-06] MEDS: ATORVASTATIN 20 MG TAB PO SCH (21:18)
[2017-05-07 05:52] VITALS: BP 121/73; PULSE 78; RESP 18; TEMP 97.2; O2SAT 98
[2017-05-07] MEDS: ASPIRIN 81 MG CHEW TAB PO SCH (08:34)
[2017-05-07] MEDS: THIAMINE HCL 100 MG TAB PO SCH (08:34)
[2017-05-07] MEDS: LISINOPRIL 5 MG TAB PO SCH (08:34)
[2017-05-07] MEDS: QUEtiapine FUMARATE 25 MG TAB PO SCH ×2 (08:34→20:33)
[2017-05-07] MEDS: FOLIC ACID 1 MG TAB PO SCH (08:34)
[2017-05-07] MEDS: REMOVE OLD PATCH T-DERMAL SCH (08:36)
[2017-05-07 09:55] LABS: AUTOMATED NEUTROPHIL # 3.1 TH/MM3 (1.8-7.7); BASOPHIL # 0.1 TH/MM3 (0-0.2); BASOPHIL % 1.1 % (0.0-2.0); EOSINOPHIL # 0.2 TH/MM3 (0-0.4); HEMATOCRIT 41.3 % (39.0-51.0); HEMOGLOBIN 13.8 GM/DL (13.0-17.0); LYMPH % 31.4 % (9.0-44.0); LYMPHOCYTE # 1.7 TH/MM3 (1.0-4.8); MEAN CELL VOLUME 87.8 FL (80.0-100.0); MEAN CORPUSCULAR HEMOGLOBIN 29.3 PG (27.0-34.0); MEAN CORPUSCULAR HGB CONC 33.4 % (32.0-36.0); MONO % 8.7 % (0.0-8.0); MONOCYTE # 0.5 TH/MM3 (0-0.9); NEUT % 55.8 % (16.0-70.0); PLATELET COUNT 169 TH/MM3 (150-450); RED CELL DISTRIBUTION WIDTH 14.8 % (11.6-17.2); WHITE BLOOD COUNT 5.6 TH/MM3 (4.0-11.0)
[2017-05-07 10:19] LABS: ALBUMIN 3.3 GM/DL (3.4-5.0); AST (GOT) 37 U/L (15-37); BICARBONATE 26.3 MEQ/L (21.0-32.0); BLOOD UREA NITROGEN 9 MG/DL (7-18); CALCIUM 8.5 MG/DL (8.5-10.1); CHLORIDE 104 MEQ/L (98-107); CREATININE 1.28 MG/DL (0.60-1.30); GLOMERULAR FILTRATION RATE 72 ML/MIN (>89); GLUCOSE,RANDOM 115 MG/DL (74-106); SODIUM (NA) 140 MEQ/L (136-145)
[2017-05-07 10:20] LABS: ALT (GPT) 49 U/L (12-78); CHOLESTEROL 158 MG/DL (120-200); TRIGLYCERIDES 142 MG/DL (42-150)
[2017-05-07 10:22] LABS: ALKALINE PHOSPHATASE 70 U/L (45-117); CHOLESTEROL/ HDL RATIO 3.65 RATIO; HDL CHOLESTEROL 43.2 MG/DL (40.0-60.0); LDL CHOLESTEROL 86 MG/DL (0-99); TOTAL BILIRUBIN ADULT 0.3 MG/DL (0.2-1.0); TOTAL PROTEIN 6.9 GM/DL (6.4-8.2)
--- NOTE | 2017-05-07 12:28 | EKG ---
Date Performed: 05/07/2017 Time Performed: 11:20:30 PTAGE: 52 years EKG: Sinus rhythm POSSIBLE RIGHT VENTRICULAR CONDUCTION DELAY NONSPECIFIC T-WAVE ABNORMALITY BORDERLINE ECG PREVIOUS TRACING : 04/15/2017 01.21 Compared to prior tracing no significant change DOCTOR: Srikanth Sutton Interpretating Date/Time 05/07/2017 12:28:08
[2017-05-07 12:50] LABS: HEMOGLOBIN A1C 6.1 % (4.3-6.0)
--- NOTE | 2017-05-07 17:23 | HHI.PYPN ---
Subjective Remarks Pt seen and discussed with staff. He remains on 1:1 due to command AH and SI. Today he he has been seclusive and sleeping most of the day. He is compliant with medications and has been eating. He is irritable and continues to endorse SI. He is labile and impulsive. Mental Status Examination Appearance: Disheveled Consciousness: Alert Orientation: x4 Motor Activity: Normal gait Speech: Unremarkable Language: Adequate Attention and Concentration: Easily Distracted Memory: Unremarkable Mood: Angry, Irritable Affect: Irritable Thought Process & Associations: Linear Thought Content: Appropriate Hallucination Type: None Delusion Type: None Suicidal Ideation: Yes Suicidal Plan: Yes Suicidal Intention: Yes Homicidal Ideation: No Homicidal Plan: No Homicidal Intention: No Insight: Poor Judgment: Poor Results Labs Test 05/07/17 09:15 White Blood Count 5.6 TH/MM3 Red Blood Count 4.70 MIL/MM3 Hemoglobin 13.8 GM/DL Hematocrit 41.3 % Mean Corpuscular Volume 87.8 FL Mean Corpuscular Hemoglobin 29.3 PG Mean Corpuscular Hemoglobin Concent 33.4 % Red Cell Distribution Width 14.8 % Platelet Count 169 TH/MM3 Mean Platelet Volume 9.0 FL Neutrophils (%) (Auto) 55.8 % Lymphocytes (%) (Auto) 31.4 % Monocytes (%) (Auto) 8.7 % Eosinophils (%) (Auto) 3.0 % Basophils (%) (Auto) 1.1 % Neutrophils # (Auto) 3.1 TH/MM3 Lymphocytes # (Auto) 1.7 TH/MM3 Monocytes # (Auto) 0.5 TH/MM3 Eosinophils # (Auto) 0.2 TH/MM3 Basophils # (Auto) 0.1 TH/MM3 CBC Comment DIFF FINAL Differential Comment Blood Urea Nitrogen 9 MG/DL Creatinine 1.28 MG/DL Random Glucose 115 MG/DL Total Protein 6.9 GM/DL Albumin 3.3 GM/DL Calcium Level 8.5 MG/DL Alkaline Phosphatase 70 U/L Aspartate Amino Transf (AST/SGOT) 37 U/L Alanine Aminotransferase (ALT/SGPT) 49 U/L Total Bilirubin 0.3 MG/DL Sodium Level 140 MEQ/L Potassium Level 4.2 MEQ/L Chloride Level 104 MEQ/L Carbon Dioxide Level 26.3 MEQ/L Anion Gap 10 MEQ/L Estimat Glomerular Filtration Rate 72 ML/MIN Hemoglobin A1c 6.1 % Triglycerides Level 142 MG/DL Cholesterol Level 158 MG/DL LDL Cholesterol 86 MG/DL HDL Cholesterol 43.2 MG/DL Cholesterol/HDL Ratio 3.65 RATIO Vitals/IOs Vital Signs Date Time Temp Pulse Resp B/P (MAP) Pulse Ox O2 Delivery O2 Flow Rate FiO2 05/07/17 05:52 97.2 78 18 121/73 (89) 98 05/06/17 05:31 Room Air Assessment & Plan Problem List: (1) Substance induced mood disorder ICD Codes: F19.94 - Other psychoactive substance use, unspecified with psychoactive substance-induced mood disorder (2) Cocaine abuse ICD Codes: F14.10 - Cocaine abuse, uncomplicated Assessment & Plan Continue current tx plan. Continue 1:1 for safety. Estimated LOS: days Justification for Cont. Inpt. impairments in safety Beulah Pino MD May 07, 2017 17:23
[2017-05-07 17:56] VITALS: BP 129/75; PULSE 76; RESP 18; O2SAT 99
[2017-05-07] MEDS: ATORVASTATIN 20 MG TAB PO SCH (20:32)
[2017-05-07] MEDS: MIRTAZAPINE 15 MG TAB PO SCH (20:32)
[2017-05-08 06:16] VITALS: BP 109/59; PULSE 59; RESP 17; TEMP 97.8; O2SAT 100
[2017-05-08] MEDS: REMOVE OLD PATCH T-DERMAL SCH (09:00)
[2017-05-08] MEDS: ASPIRIN 81 MG CHEW TAB PO SCH (09:48)
[2017-05-08] MEDS: FOLIC ACID 1 MG TAB PO SCH (09:48)
[2017-05-08] MEDS: QUEtiapine FUMARATE 25 MG TAB PO SCH (09:48)
[2017-05-08] MEDS: THIAMINE HCL 100 MG TAB PO SCH (09:48)
[2017-05-08] MEDS: LISINOPRIL 5 MG TAB PO SCH (09:49)
--- NOTE | 2017-05-08 10:19 | HHI.PYPN ---
Subjective Remarks Patient seen and examined with nurse. Chart reviewed. Case discussed with nursing staff who reports the patient has been no behavioral problem on the unit. The patient remains on one-to-one from initial admission. Case discussed with seleneter who has no problematic behaviors to report. On my examination today, the patient's presentation is more frankly malingered for usp. He implies that he expects us to hold him until usp can be found, and this seems to be his primary concern. He does complain of ongoing anxiety and suicidal ideation to cut himself or overdose, but he contracts for safety on the unit. He does not verbalize any psychotic symptoms, and there is no evident impairment in reality construction. Denies side effects from medications. No physical complaints. Review of Systems Except as stated in HPI: all other systems reviewed are Neg Mental Status Examination Appearance: Appropriate Consciousness: Alert Orientation: x4 Motor Activity: Normal gait, Other (no motor abnormalities noted) Speech: Unremarkable Language: Adequate Fund of Knowledge: Adequate Attention and Concentration: Adequate Memory: Unremarkable Mood: Other (mildly dysphoric) Affect: Blunt Thought Process & Associations: Intact, Logical, Linear Thought Content: Appropriate Hallucination Type: None Delusion Type: None Suicidal Ideation: Yes Suicidal Plan: Yes Suicidal Intention: No Homicidal Ideation: No Homicidal Plan: No Homicidal Intention: No Insight: Fair Judgment: Adequate (fair) Results Labs Labs reviewed. Vitals/IOs Vital Signs Date Time Temp Pulse Resp B/P (MAP) Pulse Ox O2 Delivery O2 Flow Rate FiO2 05/08/17 06:16 97.8 59 17 109/59 (76) 100 05/06/17 05:31 Room Air Assessment & Plan Problem List: (1) Substance induced mood disorder ICD Codes: F19.94 - Other psychoactive substance use, unspecified with psychoactive substance-induced mood disorder (2) Cocaine abuse ICD Codes: F14.10 - Cocaine abuse, uncomplicated Assessment & Plan Malingering for usp more strongly suspected today. Discontinue one-to-one. Titrate Seroquel to 100 mg twice daily to target anxious distress and dysphoria in the setting of probable drug-induced mood disorder. Continue other medications and care as ordered. Justification for Cont. Inpt. Medication changes. Monitoring for impairment in safety, none noted. Discharge Planning Pending outcome of observation and medication adjustment Request HC Surrog/Guard Advoc?: No Ariel Delgadillo MD May 08, 2017 10:19
[2017-05-08] MEDS: hydrOXYzine HCL 50 MG TAB PO PRN ×2 (10:56→20:31)
[2017-05-08 16:27] VITALS: BP 110/53; PULSE 80; RESP 18; TEMP 97.6; O2SAT 97
[2017-05-08] MEDS: MIRTAZAPINE 15 MG TAB PO SCH (20:31)
[2017-05-08] MEDS: QUEtiapine FUMARATE 100 MG TAB PO SCH (20:31)
[2017-05-08] MEDS: ATORVASTATIN 20 MG TAB PO SCH (20:31)
[2017-05-09 05:55] VITALS: BP 97/57; PULSE 64; RESP 18; TEMP 97.2; O2SAT 99
[2017-05-09] MEDS: LISINOPRIL 5 MG TAB PO SCH (09:00)
[2017-05-09] MEDS: REMOVE OLD PATCH T-DERMAL SCH (09:00)
[2017-05-09] MEDS: THIAMINE HCL 100 MG TAB PO SCH (09:35)
[2017-05-09] MEDS: FOLIC ACID 1 MG TAB PO SCH (09:35)
[2017-05-09] MEDS: QUEtiapine FUMARATE 100 MG TAB PO SCH (09:35)
[2017-05-09] MEDS: ASPIRIN 81 MG CHEW TAB PO SCH (09:35)
--- NOTE | 2017-05-09 10:53 | HHI.PYPN ---
Subjective Remarks Patient seen and examined with nurse. Chart reviewed. Case discussed with nurse and in treatment team. Per therapist's, patient is participating little in unit activities. Patient appears more euthymic today on my exam. Overall presentation remains fairly malingered. He says that he is getting better but that he "still be having thoughts though, racing thoughts." Vague AH reportedly decreasing. Patient does not appear internally stimulated. He does not verbalize any SI/HI. Denies side effects from medications. Requesting something for chronic low back pain, agreeable to Lidoderm patch. No other physical complaints. Review of Systems Except as stated in HPI: all other systems reviewed are Neg Mental Status Examination Appearance: Appropriate Consciousness: Alert Orientation: x4 Motor Activity: Normal gait, Other (no motor abnormalities noted) Speech: Unremarkable Language: Adequate Fund of Knowledge: Adequate Attention and Concentration: Adequate Memory: Unremarkable Mood: Appropriate Affect: Euthymic Thought Process & Associations: Intact, Logical, Linear Thought Content: Appropriate Hallucination Type: Auditory (Reports decreasing AH. Does NOT appear int stim. ) Delusion Type: None Suicidal Ideation: No Suicidal Plan: No Suicidal Intention: No Homicidal Ideation: No Homicidal Plan: No Homicidal Intention: No Insight: Fair Judgment: Adequate (fair) Mental Status Exam Remarks No signs of withdrawal noted. Results Labs Labs reviewed. No new labs. Vitals/IOs Vital Signs Date Time Temp Pulse Resp B/P (MAP) Pulse Ox O2 Delivery O2 Flow Rate FiO2 05/09/17 05:55 97.2 64 18 97/57 (70) 99 05/06/17 05:31 Room Air Assessment & Plan Problem List: (1) Substance induced mood disorder ICD Codes: F19.94 - Other psychoactive substance use, unspecified with psychoactive substance-induced mood disorder (2) Cocaine abuse ICD Codes: F14.10 - Cocaine abuse, uncomplicated Assessment & Plan Titrate Seroquel to 150mg BID to target reported ongoing AH and racing thoughts. Continue Remeron as ordered. Lidoderm patch. Continue to monitor on inpatient unit. Continue other meds and care as ordered. Justification for Cont. Inpt. Med changes. Discharge Planning Anticipate discharge in next 1-2 days. Request HC Surrog/Guard Advoc?: No Ariel Delgadillo MD May 09, 2017 10:53
[2017-05-09] MEDS: hydrOXYzine HCL 50 MG TAB PO PRN (14:00)
[2017-05-09] MEDS: LIDOCAINE HCL 5% PATCH T-DERMAL SCH (15:30)
[2017-05-09] MEDS: MIRTAZAPINE 15 MG TAB PO SCH (22:01)
[2017-05-09] MEDS: QUEtiapine FUMARATE 300 MG TAB PO SCH (22:01)
[2017-05-09] MEDS: ATORVASTATIN 20 MG TAB PO SCH (22:02)
[2017-05-10 05:53] VITALS: BP 116/56; PULSE 68; RESP 18; TEMP 97.1; O2SAT 98
[2017-05-10] MEDS: REMOVE OLD PATCH T-DERMAL SCH (09:00)
[2017-05-10] MEDS: THIAMINE HCL 100 MG TAB PO SCH (09:37)
[2017-05-10] MEDS: FOLIC ACID 1 MG TAB PO SCH (09:38)
[2017-05-10] MEDS: LISINOPRIL 5 MG TAB PO SCH (09:38)
[2017-05-10] MEDS: QUEtiapine FUMARATE 300 MG TAB PO SCH ×2 (09:38→20:54)
[2017-05-10] MEDS: ASPIRIN 81 MG CHEW TAB PO SCH (09:38)
[2017-05-10] MEDS: LIDOCAINE HCL 5% PATCH T-DERMAL SCH (09:39)
--- NOTE | 2017-05-10 12:12 | HHI.PYPN ---
Subjective Remarks Patient seen and examined with nurse. Chart reviewed. Patient eating well. Case discussed with nursing staff. No behavioral disturbances noted. On my examination today, the patient complains of some ongoing dysphoria. No psychotic symptoms. Denies SI or HI. Back pain improved with Lidoderm patch. Denies side effects from medications. No new physical complaints. Agreeable to titrating Remeron to target residual dysphoria. Review of Systems Except as stated in HPI: all other systems reviewed are Neg Mental Status Examination Appearance: Appropriate Consciousness: Alert Orientation: x4 Motor Activity: Other (no abnormal motor movements noted) Speech: Unremarkable Language: Adequate Fund of Knowledge: Adequate Attention and Concentration: Adequate Memory: Unremarkable Mood: Other (complains of mild dysphoria) Affect: Appropriate (affect appears fairly full and reactive and generally euthymic and inconsistent with stated mood) Thought Process & Associations: Intact, Logical, Linear Thought Content: Appropriate Hallucination Type: None Delusion Type: None Suicidal Ideation: No Suicidal Plan: No Suicidal Intention: No Homicidal Ideation: No Homicidal Plan: No Homicidal Intention: No Insight: Fair Judgment: Adequate (fair) Mental Status Exam Remarks No signs of withdrawal noted Results Labs Labs reviewed. No new labs. Vitals/IOs Vital Signs Date Time Temp Pulse Resp B/P (MAP) Pulse Ox O2 Delivery O2 Flow Rate FiO2 05/10/17 05:53 97.1 68 18 116/56 (76) 98 Assessment & Plan Problem List: (1) Substance induced mood disorder ICD Codes: F19.94 - Other psychoactive substance use, unspecified with psychoactive substance-induced mood disorder (2) Cocaine abuse ICD Codes: F14.10 - Cocaine abuse, uncomplicated Assessment & Plan Titrate Remeron to 30 mg at bedtime. Continue Seroquel as ordered. Discontinue CIWA scale. Continue to monitor on the inpatient unit. Continue other medications and care as ordered. Justification for Cont. Inpt. Medication changes. Discharge Planning Anticipate discharge tomorrow, . Request HC Surrog/Guard Advoc?: No Ariel Delgadillo MD May 10, 2017 12:11
[2017-05-10 17:25] VITALS: BP 115/62; PULSE 89; RESP 18; TEMP 98.2; O2SAT 98
[2017-05-10] MEDS: MIRTAZAPINE 15 MG TAB PO SCH (20:54)
[2017-05-10] MEDS: ATORVASTATIN 20 MG TAB PO SCH (20:54)
[2017-05-11 05:42] VITALS: BP 95/60; PULSE 76; RESP 18; TEMP 97.1; O2SAT 98
[2017-05-11] MEDS: THIAMINE HCL 100 MG TAB PO SCH (07:48)
[2017-05-11] MEDS: LISINOPRIL 5 MG TAB PO SCH (07:48)
[2017-05-11] MEDS: LIDOCAINE HCL 5% PATCH T-DERMAL SCH (07:49)
[2017-05-11] MEDS: ASPIRIN 81 MG CHEW TAB PO SCH (07:49)
[2017-05-11] MEDS: QUEtiapine FUMARATE 300 MG TAB PO SCH ×2 (07:49→20:58)
[2017-05-11] MEDS: FOLIC ACID 1 MG TAB PO SCH (07:49)
[2017-05-11] MEDS: REMOVE OLD PATCH T-DERMAL SCH (09:56)
--- NOTE | 2017-05-11 11:31 | HHI.DS ---
Psychiatry Discharge Summary Advance Directive: No Reason Not Provided: na Mental Health AdvanceDirective: No Admission Admission Date May 06, 2017 at 08:28 Admission Diagnosis: Tobacco Use In Past 30 Days: No Tobacco Past 30 Days Alcohol Use: 4 or More Times Per Week Results Blood Pressure 95 / 60 Vital Signs Date Time Temp Pulse Resp B/P (MAP) Pulse Ox O2 Delivery O2 Flow Rate FiO2 05/11/17 05:42 97.1 76 18 95/60 (72) 98 Laboratory Results Test 05/07/17 09:15 Cholesterol Level 158 MG/DL (120-200) HDL Cholesterol 43.2 MG/DL (40.0-60.0) Hemoglobin A1c 6.1 % (4.3-6.0) LDL Cholesterol 86 MG/DL (0-99) Triglycerides Level 142 MG/DL (42-150) Medications Approp Antipsych med options 1 - Minimum of three failed multiple trials of monotherapy. 2 - Documented plan to taper to monotherapy due to previous use of multiple meds OR cross-taper in progress at D/C. 3 - Documentation of augmentation of Clozapine. 4 - Justification other than those listed in allowable values 1-3, document here : Mental Status Examination Appearance: Appropriate Consciousness: Alert Orientation: x4 Motor Activity: Other (no abnormal motor movements noted) Speech: Unremarkable Language: Adequate Fund of Knowledge: Adequate Attention and Concentration: Adequate Memory: Unremarkable Mood: Other (complains of mild dysphoria) Affect: Appropriate (affect appears fairly full and reactive and generally euthymic and inconsistent with stated mood) Thought Process & Associations: Intact, Logical, Linear Thought Content: Appropriate Hallucination Type: None Delusion Type: None Suicidal Ideation: No Suicidal Plan: No Suicidal Intention: No Homicidal Ideation: No Homicidal Plan: No Homicidal Intention: No Insight: Fair Judgment: Adequate (fair) Discharge/Advance Care Plan Health Problems: (1) Substance induced mood disorder (2) Cocaine abuse Goals to promote your health * To prevent worsening of your condition and complications * To maintain your health at the optimal level Directions to meet your goals Take your medications as prescribed Follow your dietary instruction Follow activity as directed Keep your appointments as scheduled Take your immunizations and boosters as scheduled If your symptoms worsen call your PCP, if no PCP go to Urgent Care Center or Emergency Room For 28/11 questions related to your inpatient stay or results of tests pending at discharge, please contact Dr. Ariel Delgadillo at Smoking is Dangerous to Your Health. Avoid second hand smoking Ariel Delgadillo MD May 11, 2017 11:31
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
--- NOTE | 2017-05-11 16:42 | HHI.PYPN ---
Subjective Remarks Patient seen and examined with nurse. Chart reviewed. Patient is eating and sleeping well. Case discussed with nursing staff. No significant behavioral disturbance on the unit. Case discussed with counselor who planned to have [facility] come evaluate the patient on the unit, and patient has been accepted at [facility] tomorrow. On my examination today, patient's presentation is fairly obviously malingered. Not yet knowing that he has been accepted by [facility], he tells me that "if I get back out there [i.e. if he is discharged homeless] I might be thinking different things" which in context is clearly a very vague suicidal threat. He declines during the meeting to issue a firm suicidal threat if discharged homeless. There is no evidence of ongoing mood disorder. No evidence of psychosis. He denies side effects from medications and has no new physical complaints. Review of Systems Except as stated in HPI: all other systems reviewed are Neg Mental Status Examination Appearance: Appropriate Consciousness: Alert Orientation: x4 Motor Activity: Other (no abnormal motor movements noted) Speech: Unremarkable Language: Adequate Fund of Knowledge: Adequate Attention and Concentration: Adequate Memory: Unremarkable Mood: Appropriate, Other (complains of mild dysphoria) Affect: Appropriate Thought Process & Associations: Intact, Logical, Goal directed, Linear Thought Content: Appropriate Hallucination Type: None Delusion Type: None Suicidal Ideation: No (but see vague threat if discharged homeless noted above) Suicidal Plan: No Suicidal Intention: No Homicidal Ideation: No Homicidal Plan: No Homicidal Intention: No Insight: Fair Judgment: Adequate (fair) Mental Status Exam Remarks No signs of withdrawal noted. Results Labs Labs reviewed. No new labs. Vitals/IOs Vital Signs Date Time Temp Pulse Resp B/P (MAP) Pulse Ox O2 Delivery O2 Flow Rate FiO2 05/11/17 05:42 97.1 76 18 95/60 (72) 98 Assessment & Plan Problem List: (1) Cocaine abuse ICD Codes: F14.10 - Cocaine abuse, uncomplicated (2) Manipulative behavior ICD Codes: R46.89 - Other symptoms and signs involving appearance and behavior (3) Malingering ICD Codes: Z76.5 - Malingerer [conscious simulation] Assessment & Plan Drug-induced mood disorder appears to have resolved. What remains is primarily manipulative behavior/malingering. Given that the patient has been accepted at [facility] tomorrow and given the likelihood that he would simply manufacture some circumstance to try to get readmitted if he were discharged today, I think [facility] on the unit overnight with plans for discharge to [facility] tomorrow. Facility is requesting a screening chest x -ray, and I have ordered this. Continue other medications and care as ordered. Justification for Cont. Inpt. Final discharge planning Discharge Planning Discharge [facility] tomorr, Monday. Request HC Surrog/Guard Advoc?: No Ariel Delgadillo MD May 11, 2017 16:42
[2017-05-11] MEDS ORDERED: QUET1TAB10 PO (16:43)
[2017-05-11] MEDS ORDERED: MIRTA15 PO (16:43)
[2017-05-11 16:54] VITALS: BP 160/70; PULSE 10; RESP 18; TEMP 97; O2SAT 97
[2017-05-11] MEDS: MIRTAZAPINE 15 MG TAB PO SCH (20:59)
[2017-05-11] MEDS: ATORVASTATIN 20 MG TAB PO SCH (20:59)
[2017-05-12 05:53] VITALS: BP 125/67; PULSE 83; RESP 18; TEMP 96.3; O2SAT 99
[2017-05-12] MEDS: REMOVE OLD PATCH T-DERMAL SCH (09:00)
[2017-05-12] MEDS: THIAMINE HCL 100 MG TAB PO SCH (09:34)
[2017-05-12] MEDS: FOLIC ACID 1 MG TAB PO SCH (09:34)
[2017-05-12] MEDS: ASPIRIN 81 MG CHEW TAB PO SCH (09:34)
[2017-05-12] MEDS: LISINOPRIL 5 MG TAB PO SCH (09:34)
[2017-05-12] MEDS: QUEtiapine FUMARATE 300 MG TAB PO SCH (09:34)
[2017-05-12] MEDS: LIDOCAINE HCL 5% PATCH T-DERMAL SCH (09:35)
[2017-05-12] MEDS ORDERED: ATOR20TA15 PO (10:33)
[2017-05-12] MEDS ORDERED: LISI-519 PO (10:33)
--- NOTE | 2017-05-12 10:35 | HHI.DS ---
Psychiatry Discharge Summary Inpatient Psychiatric care?: Yes Advance Directive: No Reason Not Provided: na Mental Health AdvanceDirective: No Health Care Proxy: No Admission Admission Date May 06, 2017 at 08:28 Admission Diagnosis: (1) Adjustment disorder with depressed mood ICD Code: F43.21 - Adjustment disorder with depressed mood (2) Cocaine abuse ICD Code: F14.10 - Cocaine abuse, uncomplicated (3) Alcohol abuse ICD Code: F10.10 - Alcohol abuse, uncomplicated Brief History Mr. Wolff is a 52-year-old -[place]in[place]ian male with a self-reported history of schizophrenia who presents under a [place] ACT from [employer] alleging that the patient said he wanted to kill himself because of an argument with his girlfriend. He told the officers that he would overdose on medication. Reviewing the electronic medical record, I note the patient was seen in consultation by Dr. Corado on April 15 with a diagnosis at that time of drug induced mood disorder and was also admitted under Dr. Momin from the through the of this month. The patient seen and examined. Chart reviewed. Case discussed with nursing staff. The patient has apparently been threatening suicide in the [facility] and has been placed with a one-to-one sitter. On my evaluation this morning, the patient is visibly quaking. He is emotionally distressed. He tells me that he had an argument with the friend with whom he is staying and also broke up with his fiance 1 week ago. He says that he did not feel like the Risperdal and antidepressant that he had been prescribed last time were helping and so he stopped these medications a few days ago. He says that in the setting of this medication nonadherence along with these psychosocial stressors he has been feeling increasingly depressed and suicidal x1 day. He says that he has been experiencing "visions telling me to harm myself and others." He endorses ongoing suicidal ideation with plans to "take pills, do anything." He does not reliably contract for safety on the inpatient unit. He does not verbalize any homicidal ideation but is allegedly experiencing reportedly experiencing these command auditory hallucinations to hurt others as I said. No delusional material elicited. No hypomanic or manic symptoms. Besides the patients acute dysphoria, no real depressive symptoms elicited. The remainder of the psychiatric ROS is negative. The patient has no physical complaints at this time except for chronic low-back pain. Tobacco Use In Past 30 Days: No Tobacco Past 30 Days Alcohol Use: 4 or More Times Per Week Hospital Course Patient was admitted to a locked, inpatient psychiatric unit. Appropriate precautions were in place throughout patient's hospital stay. Patient was seen and examined on the unit by psychiatry and also visited by counselor. Psychotropic medications were adjusted. Patient tolerated medications well without side effects. Patient had improvement in presenting symptomatology. Patient's presenting dysphoria is suspected to have been substance related, and once this resolved the patient's presentation became obviously malingered for long term. There was no evidence of any suicidality or homicidality on the inpatient unit. Patient participated little in unit activities but did come out for meals. Counselor has arranged for placement at [facility] today. On the day of discharge: Patient seen and examined with counselor and nurse. Chart reviewed. Case discussed with nursing staff. No behavioral issues overnight. Case discussed in treatment team with counselor and occupational therapist. On my examination today, the patient feels ready to leave the hospital and proceed to [facility]. He denies any suicidal or homicidal ideation, intent or plan on direct questioning and contracts for safety. I can elicit no depressive or hypomanic/manic symptoms. He denies any audiovisual hallucinations. I can elicit no delusional material. There is no evidence of any impairment in reality construction. He denies side effects from medications. No new physical complaints. The patient does use our discharge discussion to try to obtain a prescription for opiates from this provider, which request was declined. Suicide and violence risk assessment on day of discharge both suggest low imminent risk, and the patient's level of function is adequate for outpatient care. The patient has maximized benefit from this inpatient psychiatric hospital stay and will be discharged to [facility] today with psychiatric follow-up as arranged by counselor. Patient is also to follow-up with primary care. I have counseled the patient to abstain from substances of abuse and recommended that he pursue chemical dependency evaluation and treatment on an outpatient basis, although I do suspect he is pre-contemplative with regards to changing his pattern of use. I have counseled the patient regarding warning signs for need to return to the psychiatric emergency room as part of a general safety plan. In the event that patient's fortunes change and he again becomes homeless, it is suspected that he will once again malinger psychiatric symptoms for long term. Results Blood Pressure 125 / 67 Vital Signs Date Time Temp Pulse Resp B/P (MAP) Pulse Ox O2 Delivery O2 Flow Rate FiO2 05/12/17 05:53 96.3 83 18 125/67 (86) 99 Laboratory Results Test 05/07/17 09:15 Cholesterol Level 158 MG/DL (120-200) HDL Cholesterol 43.2 MG/DL (40.0-60.0) Hemoglobin A1c 6.1 % (4.3-6.0) LDL Cholesterol 86 MG/DL (0-99) Triglycerides Level 142 MG/DL (42-150) Summary of Procedures None done Imaging Last Impressions Chest X-Ray 05/11/17 0000 Signed Impressions: Service Date/Time: May 15:05 - CONCLUSION: 1. No acute cardiopulmonary findings. Jose Enrique Paul MD Pending results at discharge: No Medications # of Antipsychotic meds at D/C: 1 Approp Antipsych med options 1 - Minimum of three failed multiple trials of monotherapy. 2 - Documented plan to taper to monotherapy due to previous use of multiple meds OR cross-taper in progress at D/C. 3 - Documentation of augmentation of Clozapine. 4 - Justification other than those listed in allowable values 1-3, document here : Discharge Discharge Date: May 12, 2017 Discharge Diagnosis: (1) Malingering Diagnosis: Principal ICD Code: Z76.5 - Malingerer [conscious simulation] (2) Manipulative behavior Diagnosis: Secondary ICD Code: R46.89 - Other symptoms and signs involving appearance and behavior (3) Cocaine abuse Diagnosis: Secondary (counseled to quit) ICD Code: F14.10 - Cocaine abuse, uncomplicated (4) Alcohol abuse Diagnosis: Secondary (counseled to quit) ICD Code: F10.10 - Alcohol abuse, uncomplicated Pt Condition on Discharge: Stable Discharge Disposition: [facility] Discharge Instructions Diet Instructions: As Tolerated, No Restrictions Activities you can perform: Weight Bearing as Nohemi Scheduled Appointment: Wallace Hart Appointment Date: May 16, 2017 Appointment Time: 7:30 am New Orders: BASIC METABOLIC PROF - 1 Week HEMOGLOBIN A1C - 1 Week New Medications: Mirtazapine (Mirtazapine) 15 Mg Tab 30 MG PO HS for Mental Health for 10 Days, TAB 2 Refills Quetiapine (Quetiapine) 300 Mg Tab 150 MG PO BID for Mental Health for 10 Days, #10 TAB 2 Refills Continued Medications: Aspirin (Tgt Aspirin) 81 Mg Chw 81 MG PO DAILY for heart for 30 Days, EA Atorvastatin (Atorvastatin) 20 Mg Tab 20 MG PO HS for HLD for 10 Days, TAB 2 Refills (This prescription has been renewed) Lisinopril (Lisinopril) 5 Mg Tab 2.5 MG PO DAILY for HTN for 10 Days, #5 TAB 2 Refills (This prescription has been renewed) Discharge Time > 30 minutes Mental Status Examination Appearance: Appropriate Consciousness: Alert Orientation: x4 Motor Activity: Normal gait, Other (no motor abnormalities noted. No signs of withdrawal noted.) Speech: Unremarkable Language: Adequate Fund of Knowledge: Adequate Attention and Concentration: Adequate Memory: Unremarkable Mood: Appropriate Affect: Appropriate, Euthymic Thought Process & Associations: Intact, Logical, Goal directed, Linear Thought Content: Appropriate Hallucination Type: None Delusion Type: None Suicidal Ideation: No Suicidal Plan: No Suicidal Intention: No Homicidal Ideation: No Homicidal Plan: No Homicidal Intention: No Insight: Fair Judgment: Adequate (fair) Discharge/Advance Care Plan Health Problems: (1) Cocaine abuse (2) Manipulative behavior (3) Malingering Goals to promote your health * To prevent worsening of your condition and complications * To maintain your health at the optimal level Directions to meet your goals Take your medications as prescribed Follow your dietary instruction Follow activity as directed Keep your appointments as scheduled Take your immunizations and boosters as scheduled If your symptoms worsen call your PCP, if no PCP go to Urgent Care Center or Emergency Room For 28/11 questions related to your inpatient stay or results of tests pending at discharge, please contact Dr. Ariel Delgadillo at Smoking is Dangerous to Your Health. Avoid second hand smoking Ariel Delgadillo MD May 12, 2017 10:35
== END 2017-05-12 14:20 | DRG 951 ==
LOC: NEPD 00:27 → NEDA 08:28 → H270 11:50
PROVIDERS: ADMIT Psychiatry & Neurology Psychiatry; ATTEND Psychiatry & Neurology Psychiatry
DX: Z76.5 Malingerer [conscious simulation] (principal); F14.10 Cocaine abuse, uncomplicated; F10.10 Alcohol abuse, uncomplicated; Y90.0 Blood alcohol level of less than 20 mg/100 ml; Z91.14 Patient's other noncompliance with medication regimen; M54.5 Low back pain; G89.29 Other chronic pain; Z59.0 Homelessness
CPT/HCPCS: 71045; 80053; 80061; 80307; 83036; 85025; 93005

== ENCOUNTER 2017-06-01 14:09 | Emergency (ER) | payer MEDICAID, OTHER ==
[~2017-06-01] VITALS: Ht 177.8 cm; Wt 105.0 kg
[~2017-06-01 14:09] MED LIST changes: +QUET1TAB10 PO; -RISP1 PO
[2017-06-01 14:17] VITALS: BP 117/73; PULSE 101; RESP 14; TEMP 97.6; O2SAT 98
[2017-06-01] MEDS ORDERED: NABU1TAB37 PO (14:56)
--- NOTE | 2017-06-01 14:57 | PD ---
HPI Chief Complaint: Cold / Flu Symptoms Time Seen by Provider: 14:52 Travel History International Travel<30 days: No Contact w/Intl Traveler<30days: No Traveled to known affect area: No History of Present Illness HPI DT-year-old male presents to emergency department from [facility] with complaint of body aches, lower back pain, nausea, vomiting, diarrhea and headache since early this morning at approximately 2 AM. Reports eating corn, beans, mashed potatoes and gravy last visit he thinks it didn't sit well with his stomach. Denies fevers. Abdominal pain is to the right upper quadrant and epigastric region. Denies nasal congestion, sore throat, ear pain, cough. Denies dysuria, hematuria. Last vomited at approximately 6 AM this morning. Has had continued diarrhea. Has drink fluids and eat food without continued vomiting. Has not taken any medications or tried any treatments to alleviate his symptoms. No known aggravating or relieving factors. Symptoms are mild to moderate in severity. No primary care provider. Allergies to Haldol. History of diabetes type 2 and hypertension. Has no other medical complaints. No other modifying factors or associated signs and symptoms. PFSH Past Medical History Depression: Yes Heart Rhythm Problems: No Cancer: No Cardiac Catheterization: No Cardiovascular Problems: Yes (HTN) High Cholesterol: Yes Congestive Heart Failure: No Diabetes: Yes (TYPE 2) Diminished Hearing: No Endocrine: Yes Gastrointestinal Disorders: No Genitourinary: No Hypertension: Yes Immune Disorder: No Implanted Vascular Access Dvce: No Musculoskeletal: Yes (Lower back pain) Neurologic: No Psychiatric: Yes Reproductive: No Respiratory: No Schizophrenia: Yes Thyroid Disease: No Past Surgical History Coronary Artery Bypass Graft: No Insulin Pump: No Pacemaker: No Other Surgery: No Social History Alcohol Use: Yes (PT REPORTS 24 PACK BEER PER DAY) Tobacco Use: No Substance Use: Yes Allergies-Medications (Allergen,Severity, Reaction): Coded Allergies: haloperidol (Verified Allergy, Intermediate, Swollen tongue, 06/01/17) Reported Meds & Prescriptions Reported Meds & Active Scripts Active Zofran Odt (Ondansetron Odt) 4 Mg Tab 4 Mg SL Q8HR PRN Lisinopril 5 Mg Tab 2.5 Mg PO DAILY 10 Days Atorvastatin (Atorvastatin Calcium) 20 Mg Tab 20 Mg PO HS 10 Days Quetiapine (Quetiapine Fumarate) 300 Mg Tab 150 Mg PO BID 10 Days Mirtazapine 15 Mg Tab 30 Mg PO HS 10 Days Tgt Aspirin (Aspirin) 81 Mg Chw 81 Mg PO DAILY 30 Days Reported Nabumetone 500 Mg Tab 500 Mg PO BID Review of Systems Except as stated in HPI: all other systems reviewed are Neg Physical Exam Narrative GENERAL: Well-nourished, well-developed black male patient, in no acute distress ; afebrile SKIN: Warm and dry. HEAD: Atraumatic. Normocephalic. EYES: Pupils equal and round. No scleral icterus. No injection or drainage. ENT: Mucosa pink and moist. Airway patent. NECK: Trachea midline. CARDIOVASCULAR: Regular rate and rhythm. No murmur appreciated. RESPIRATORY: No accessory muscle use. Clear to auscultation. Breath sounds equal bilaterally. GASTROINTESTINAL: Abdomen soft, tenderness on palpation to right upper quadrant , nondistended. Hepatic and splenic margins not palpable. Bowel sounds are active 4 quadrants. Nonrigid. No rebound tenderness. No guarding. BACK: No CVA tenderness. MUSCULOSKELETAL: No obvious deformities. No clubbing. No cyanosis. No edema. NEUROLOGICAL: Awake and alert. Oriented 3. No obvious cranial nerve deficits. Motor grossly within normal limits. Normal speech. PSYCHIATRIC: Appropriate mood and affect; insight and judgment normal. Data Data Last Documented VS Vital Signs Date Time Temp Pulse Resp B/P (MAP) Pulse Ox O2 Delivery O2 Flow Rate FiO2 06/01/17 19:56 06/01/17 14:17 97.6 101 14 98 Orders Orders Complete Blood Count With Diff (06/01/17 15:04) Comprehensive Metabolic Panel (06/01/17 15:04) Lipase (06/01/17 15:04) Urinalysis - C+S If Indicated (06/01/17 15:04) Us Abdomen Gallbladder (06/01/17 ) Ondansetron Inj (Zofran Inj) (06/01/17 15:15) Sodium Chlor 0.9% 1000 Ml Inj (Ns 1000 M (06/01/17 15:04) Sodium Chloride 0.9% Flush (Ns Flush) (06/01/17 15:15) Ketorolac Inj (Toradol Inj) (06/01/17 15:15) Influenzae A/B Antigen (06/01/17 15:08) Ed Discharge Order (06/01/17 19:12) Labs Laboratory Tests Test 06/01/17 15:15 White Blood Count 6.8 TH/MM3 Red Blood Count 5.06 MIL/MM3 Hemoglobin 14.5 GM/DL Hematocrit 43.9 % Mean Corpuscular Volume 86.8 FL Mean Corpuscular Hemoglobin 28.8 PG Mean Corpuscular Hemoglobin Concent 33.1 % Red Cell Distribution Width 13.8 % Platelet Count 169 TH/MM3 Mean Platelet Volume 9.1 FL Neutrophils (%) (Auto) 62.7 % Lymphocytes (%) (Auto) 24.1 % Monocytes (%) (Auto) 10.8 % Eosinophils (%) (Auto) 2.1 % Basophils (%) (Auto) 0.3 % Neutrophils # (Auto) 4.2 TH/MM3 Lymphocytes # (Auto) 1.6 TH/MM3 Monocytes # (Auto) 0.7 TH/MM3 Eosinophils # (Auto) 0.1 TH/MM3 Basophils # (Auto) 0.0 TH/MM3 CBC Comment DIFF FINAL Differential Comment Urine Color YELLOW Urine Turbidity CLEAR Urine pH 5.5 Urine Specific [place] 1.032 Urine Protein TRACE mg/dL Urine Glucose (UA) NEG mg/dL Urine Ketones NEG mg/dL Urine Occult Blood NEG Urine Nitrite NEG Urine Bilirubin NEG Urine Urobilinogen LESS THAN 2.0 MG/DL Urine Leukocyte Esterase NEG Urine RBC LESS THAN 1 /hpf Urine WBC 1 /hpf Urine Squamous Epithelial Cells <1 /hpf Urine Mucus FEW /lpf Microscopic Urinalysis Comment CULT NOT INDICATED Blood Urea Nitrogen 14 MG/DL Creatinine 1.07 MG/DL Random Glucose 93 MG/DL Total Protein 7.5 GM/DL Albumin 3.8 GM/DL Calcium Level 8.5 MG/DL Alkaline Phosphatase 57 U/L Aspartate Amino Transf (AST/SGOT) 30 U/L Alanine Aminotransferase (ALT/SGPT) 34 U/L Total Bilirubin 0.4 MG/DL Sodium Level 139 MEQ/L Potassium Level 4.6 MEQ/L Chloride Level 105 MEQ/L Carbon Dioxide Level 24.7 MEQ/L Anion Gap 9 MEQ/L Estimat Glomerular Filtration Rate 88 ML/MIN Lipase 138 U/L [facility] Medical Decision Making Medical Screen Exam Complete: Yes Emergency Medical Condition: Yes Medical Record Reviewed: Yes Differential Diagnosis Cholecystitis, cholelithiasis, gastritis, gastroenteritis Narrative Course 52-year-old male with possible flulike symptoms, vomiting and diarrhea and right upper quadrant abdominal pain. I discussed the patient with Dr. Goodson, my attending physician, and she does complain of care. CBC, CMP, lipase, urinalysis, right upper quadrant abdominal ultrasound, normal saline bolus, Zofran, Toradol ordered. 1752: CBC, CMP, lipase unremarkable. Influenza negative. Right upper quadrant ultrasound concluded: Hepatic steatosis. Discussed ultrasound findings with the patient. 1911: Urinalysis unremarkable. Zofran prescribed for home. Discussed patient with Dr. Sutton and he agrees with discharge. Instructed patient to follow up with primary care provider. Patient verbalizes understanding and agreement with treatment plan. Patient is medically cleared and stable for discharge. Discussed reasons to return to the emergency department. Patient agrees with treatment plan. The patients vital signs are stable and the patient is stable for outpatient follow-up and treatment. Patient discharged home, stable and in no acute distress. Diagnosis Primary Impression: Gastroenteritis Referrals: [employer] Primary Care Physician Patient Instructions: Gastroenteritis (ED), General Instructions Additional Instructions: Take Zofran as prescribed for nausea/vomiting Increase fluid intake, starting with clear fluids; advancing to a bland diet as tolerated [place] diet to include crackers, rice, toast, bananas as tolerated, advancing slowly to regular diet Follow-up primary care provider in next 1-2 days Return to emergency department immediately, particularly if develop bloody or black stool, can't keep fluids down, develops disorientation or confusion Med/Other Pt SpecificInfo: Prescription(s) given Scripts Ondansetron Odt (Zofran Odt) 4 Mg Tab 4 MG SL Q8HR Y for Nausea/Vomiting, #6 TAB 0 Refills Prov: Leda Gould 06/01/17 Disposition: DISCHARGE HOME Condition: Stable Leda Gould Jun 01, 2017 14:57
[2017-06-01] MEDS ORDERED: SODIUM CHLOR 0.9% 1000 ML INJ 1,000 ML IV SCH (15:04)
[2017-06-01] MEDS ORDERED: ONDANSETRON HCL 4 MG/2 ML VIAL IVP ONE (15:15)
[2017-06-01] MEDS ORDERED: KETOROLAC TROMETHAMINE 30 MG/ML (IVP) VIAL IVP ONE (15:15)
[2017-06-01] MEDS ORDERED: SODIUM CHLORIDE 0.9% FLUSH 10 ML FLUSH IV FLUSH PRN (15:15)
[2017-06-01 15:35] LABS: AUTOMATED NEUTROPHIL # 4.2 TH/MM3 (1.8-7.7); BASOPHIL % 0.3 % (0.0-2.0); EOSINOPHIL # 0.1 TH/MM3 (0-0.4); EOSINOPHIL % 2.1 % (0.0-4.0); HEMATOCRIT 43.9 % (39.0-51.0); HEMOGLOBIN 14.5 GM/DL (13.0-17.0); LYMPH % 24.1 % (9.0-44.0); LYMPHOCYTE # 1.6 TH/MM3 (1.0-4.8); MEAN CELL VOLUME 86.8 FL (80.0-100.0); MEAN CORPUSCULAR HEMOGLOBIN 28.8 PG (27.0-34.0); MEAN CORPUSCULAR HGB CONC 33.1 % (32.0-36.0); MEAN PLATELET VOLUME 9.1 FL (7.0-11.0); MONO % 10.8 % (0.0-8.0); MONOCYTE # 0.7 TH/MM3 (0-0.9); NEUT % 62.7 % (16.0-70.0); PLATELET COUNT 169 TH/MM3 (150-450); RED BLOOD COUNT 5.06 MIL/MM3 (4.50-5.90); RED CELL DISTRIBUTION WIDTH 13.8 % (11.6-17.2); WHITE BLOOD COUNT 6.8 TH/MM3 (4.0-11.0)
[2017-06-01 15:56] LABS: ALBUMIN 3.8 GM/DL (3.4-5.0); ALT (GPT) 34 U/L (12-78); AST (GOT) 30 U/L (15-37); BICARBONATE 24.7 MEQ/L (21.0-32.0); BLOOD UREA NITROGEN 14 MG/DL (7-18); CALCIUM 8.5 MG/DL (8.5-10.1); CHLORIDE 105 MEQ/L (98-107); CREATININE 1.07 MG/DL (0.60-1.30); GLOMERULAR FILTRATION RATE 88 ML/MIN (>89); GLUCOSE,RANDOM 93 MG/DL (74-106); LIPASE 138 U/L (73-393); SODIUM (NA) 139 MEQ/L (136-145)
[2017-06-01 15:57] LABS: ALKALINE PHOSPHATASE 57 U/L (45-117); TOTAL BILIRUBIN ADULT 0.4 MG/DL (0.2-1.0); TOTAL PROTEIN 7.5 GM/DL (6.4-8.2)
--- NOTE | 2017-06-01 16:50 | RADRPT ---
EXAM DATE/TIME: 06/01/2017 15:46 [facility] COMPARISON: No previous studies available for comparison. INDICATIONS : Right upper quadrant pain. MEDICAL HISTORY : Hypercholesterolemia. Hypertension. Diabetes. Back pain. Schizophrenia. Depression. SURGICAL HISTORY : None. ENCOUNTER: Initial ACUITY: 1 day PAIN SCORE: 3/10 LOCATION: Right upper quadrant MEASUREMENTS: LIVER: 18.4 cm length COMMON DUCT: 4 mm RIGHT KIDNEY: 10.4 x 5.5 x 6.0 cm FINDINGS: LIVER: Diffuse hyperechogenicity of the liver indicating hepatic steatosis. No focal mass identified. COMMON DUCT: No intraluminal mass or stone visualized. GALLBLADDER: Contains no stones, demonstrates no wall thickening or pericholecystic fluid. PANCREAS: Poorly visualized due to overlying bowel gas. RIGHT KIDNEY: No evidence of hydronephrosis, stone, or mass. CONCLUSION: Hepatic steatosis. Bryon Asencio MD on June 01, 2017 at 16:47 Board Certified Radiologist. This report was verified electronically.
[2017-06-01 19:08] LABS: BILIRUBIN, URINE NEG (NEG); BLOOD, URINE NEG (NEG); GLUCOSE,URINE NEG (NEG); KETONE, URINE NEG (NEG); MUCUS URINE FEW /lpf (OCC); NITRITE,URINE NEG (NEG); PH, URINE 5.5 (5.0-8.5); SQUAMOUS EPITHELIAL CELL URINE <1 /hpf (0-5); URINE COLOR YELLOW (YELLW/STRAW); URINE LEUKOCYTE ESTERASE NEG (NEG)
[2017-06-01] MEDS ORDERED: ZOFR4TAB3 SL (19:12)
== END 2017-06-01 19:41 | disposition home or self-care (01) ==
LOC: NEPD 14:09
DX: K52.9 Noninfective gastroenteritis and colitis, unspecified (principal); K76.0 Fatty (change of) liver, not elsewhere classified; I10 Essential (primary) hypertension; E78.00 Pure hypercholesterolemia, unspecified; E11.9 Type 2 diabetes mellitus without complications; F20.9 Schizophrenia, unspecified; F32.9 Major depressive disorder, single episode, unspecified; Z88.8 Allergy status to other drugs, medicaments and biological substances; Z79.899 Other long term (current) drug therapy; Z79.82 Long term (current) use of aspirin
CPT/HCPCS: 76705; 80053; 81001; 83690; 85025; 87804; 96374; 96375; 99285; J1885; J2405; J7030

== ENCOUNTER 2017-06-03 18:15 | Inpatient (IN) | payer OTHER ==
[~2017-06-03] VITALS: Ht 177.8 cm; Wt 106.7 kg
[~2017-06-03 18:15] MED LIST changes: +NABU1TAB37 PO; +ZOFR4TAB3 SL
[2017-06-03 18:16] VITALS: BP 140/82; PULSE 95; RESP 12; TEMP 98.3; O2SAT 99
--- NOTE | 2017-06-03 19:26 | PD ---
HPI Chief Complaint: Psychiatric Symptoms Time Seen by Provider: 19:12 Travel History International Travel<30 days: No Contact w/Intl Traveler<30days: No Traveled to known affect area: No History of Present Illness HPI 52-year-old black male presents to emergency department on a voluntary basis for psychological evaluation. Patient states that his feeling depressed and suicidal. He lives at [facility]. He is disabled with mental health. Patient reports that he has contemplated overdosing of his medicines. His mother allegedly had 2 weeks ago. He states that he is going through a lot of problems. He continues to drink alcohol and abuse cocaine. Patient denies any toxic ingestions. He denies any homicidal ideation. He denies taking anything today. He states that he feels rundown, weak and would like to sleep. PFSH Past Medical History Depression: Yes Heart Rhythm Problems: No Cancer: No Cardiac Catheterization: No Cardiovascular Problems: Yes (HTN) High Cholesterol: Yes Congestive Heart Failure: No Diabetes: Yes Diminished Hearing: No Endocrine: Yes Gastrointestinal Disorders: No Genitourinary: No Hypertension: Yes Immune Disorder: No Implanted Vascular Access Dvce: No Musculoskeletal: Yes (Lower back pain) Neurologic: No Psychiatric: Yes Reproductive: No Respiratory: No Schizophrenia: Yes Thyroid Disease: No Tetanus Vaccination: < 5 Years Past Surgical History Surgical History: No Previous Surgery Coronary Artery Bypass Graft: No Insulin Pump: No Pacemaker: No Other Surgery: No Social History Alcohol Use: Yes (PT REPORTS 24 PACK BEER PER DAY) Tobacco Use: No Substance Use: Yes Allergies-Medications (Allergen,Severity, Reaction): Coded Allergies: haloperidol (Verified Allergy, Intermediate, Swollen tongue, 06/01/17) Reported Meds & Prescriptions Reported Meds & Active Scripts Active Zofran Odt (Ondansetron Odt) 4 Mg Tab 4 Mg SL Q8HR PRN Lisinopril 5 Mg Tab 2.5 Mg PO DAILY 10 Days Atorvastatin (Atorvastatin Calcium) 20 Mg Tab 20 Mg PO HS 10 Days Quetiapine (Quetiapine Fumarate) 300 Mg Tab 150 Mg PO BID 10 Days Mirtazapine 15 Mg Tab 30 Mg PO HS 10 Days Tgt Aspirin (Aspirin) 81 Mg Chw 81 Mg PO DAILY 30 Days Reported Nabumetone 500 Mg Tab 500 Mg PO BID Review of Systems General / Constitutional: No: Fever Eyes: No: Visual changes HENT: No: Headaches Cardiovascular: No: Chest Pain or Discomfort Respiratory: No: Shortness of Breath Gastrointestinal: No: Abdominal Pain Genitourinary: No: Dysuria Musculoskeletal: No: Pain Skin: No Rash Neurologic: No: Weakness Psychiatric: Positive: Depression, Suicidal Ideations, Mood Disorder, Substance Abuse, No: Anxiety, Disorder of Thought, Homicidal Ideation Endocrine: No: Polydipsia Hematologic/Lymphatic: No: Easy Bruising Physical Exam Narrative GENERAL: Well-nourished, well-developed patient. SKIN: Warm and dry. HEAD: Normocephalic and atraumatic. EYES: No scleral icterus. No injection or drainage. ENT: No nasal drainage noted. Mucous membranes pink. Airway patent. NECK: Supple, trachea midline. Moves head freely without obvious discomfort. CARDIOVASCULAR: Regular rate and rhythm without murmurs, gallops, or rubs. RESPIRATORY: Breath sounds equal bilaterally. No accessory muscle use. GASTROINTESTINAL: Abdomen soft, non-tender, nondistended. EXTREMITIES: No cyanosis or edema. BACK: Nontender without obvious deformity. No CVA tenderness. NEURO: Patient is alert and oriented. no sensorimotor deficits. Nonfocal. Normal speech. PSYCH: No delusions. No auditory or visual hallucinations. Data Data Last Documented VS Vital Signs Date Time Temp Pulse Resp B/P (MAP) Pulse Ox O2 Delivery O2 Flow Rate FiO2 06/03/17 18:16 98.3 95 12 140/82 (101) 99 MDM Medical Decision Making Medical Screen Exam Complete: Yes Emergency Medical Condition: Yes Medical Record Reviewed: Yes Differential Diagnosis MDM: High Differential diagnoses: Schizophrenia, schizoaffective disorder, bipolar, anxiety, depression, adjustment reaction, mood disorder NOS, ODD, depressive disorder NOS, dementia, dementia with agitation, psychosis NOS, substance induced mood disorder, DMDD, Asperger syndrome, infection,electrolyte abnormality, malingering. Narrative Course Mental health screening discussed with the patient. Psychiatric screen ordered. This patient was just seen in emergency room this past week and had laboratory tests performed which were normal. He has a history of cocaine abuse. His last visit approximate one month ago was positive for cocaine. I do not believe repeat testing is indicated today. Patient admits to substance abuse. This is medical clearance for psychiatric admission Diagnosis Primary Impression: Medical clearance for psychiatric admission Condition: Jayant Quinones Jun 03, 2017 19:26
[2017-06-04 02:23] VITALS: BP 106/60; PULSE 83; RESP 18; TEMP 98.1; O2SAT 97
[2017-06-04] MEDS ORDERED: MIRT30TA PO (10:26)
[2017-06-04] MEDS ORDERED: FLUMAZENIL 0.5 MG/5 ML VIAL IV PUSH PRN (10:30)
[2017-06-04] MEDS ORDERED: LORazepam 2 MG/ML VIAL IV PUSH PRN ×4 (10:30)
[2017-06-04] MEDS ORDERED: LORazepam 2 MG TAB PO PRN (10:30)
[2017-06-04 11:01] VITALS: BP 196/93; PULSE 106
[2017-06-04 11:06] VITALS: BP 122/66; PULSE 82; RESP 16; TEMP 98.6; O2SAT 94
[2017-06-04] MEDS ORDERED: ALUMINUM/MAGNESIUM/SIMETH 30 ML CUP PO PRN (12:15)
[2017-06-04] MEDS ORDERED: MAGNESIUM HYDROXIDE SUSP 30 ML CUP PO PRN (12:15)
[2017-06-04 14:10] VITALS: BP 125/68; PULSE 75; RESP 16; O2SAT 96
--- NOTE | 2017-06-04 15:09 | PD.CONS ---
[facility] Request[facility] By Reason for Consult Medical management, diabetes, abnormal labs. Primary Care Physician No Primary Care Physician Diagnoses: (1) Diabetes mellitus (2) HTN (hypertension) (3) Hyperlipidemia (4) Cocaine abuse (5) Alcohol abuse History of Present Illness Written by Ze Qureshi, acting as scribe for [Radha] on 06/04/17 at 15:19. 52-year-old male with past medical history significant for hypertension, hyperlipidemia, diabetes, chronic lower back pain, and depression who presented to the emergency department on 06/03 on a voluntary basis for psychological evaluation. Patient lives at [facility] due to mental health reported contemplating overdosing with his medications. Review of emergency department documentation notes that mother allegedly 2 weeks ago. At the time of my exam patient is in inpatient psychiatry unit sitting in the day room. He is calm and cooperative and is answering questions although he has a poor historian. EMR was reviewed for majority of medical history. He is able to verify some of his past medical history and denies any surgeries in the past. He reports drinking one 24 pack of beer a day states that the last time he drank was yesterday. He also admits to smoking cocaine daily. Noted right hand tremor, patient states that this began this morning. No reports of fevers, chills, nausea, vomiting, diarrhea, headaches, shortness of breath, chest pains or cough. Review of Systems Except as stated in HPI: all other systems reviewed are Neg Past Family Social History Allergies: Coded Allergies: haloperidol (Verified Allergy, Intermediate, Swollen tongue, 06/01/17) Past Medical History HTN HLD DM Chronic lower back pain Depression with psychiatric hospitalizations in the past Past Surgical History Denies Reported Medications Reported Meds & Active Scripts Active Lisinopril 5 Mg Tab 2.5 Mg PO DAILY 10 Days Atorvastatin (Atorvastatin Calcium) 20 Mg Tab 20 Mg PO HS 10 Days Quetiapine (Quetiapine Fumarate) 300 Mg Tab 150 Mg PO BID 10 Days Tgt Aspirin (Aspirin) 81 Mg Chw 81 Mg PO DAILY 30 Days Reported Mirtazapine 30 Mg Tab 30 Mg PO HS Nabumetone 500 Mg Tab 500 Mg PO BID Active Ordered Medications Current Medications Medications (Trade) Dose Ordered Sig/Sachin Route Start Time Stop Time Status Last Admin (Romazicon Inj) 0.2 mg Q1M PRN IV PUSH 06/04/17 10:30 (Ativan) 1 mg Q4H PRN PO 06/04/17 10:30 (Ativan Inj) 1 mg Q4H PRN IV PUSH 06/04/17 10:30 (Ativan) 2 mg Q2H PRN PO 06/04/17 10:30 (Ativan Inj) 2 mg Q2H PRN IV PUSH 06/04/17 10:30 (Ativan Inj) 2 mg Q1H PRN IV PUSH 06/04/17 10:30 06/04/17 10:33 (Ativan Inj) 2 mg Q15M PRN IV PUSH 06/04/17 10:30 (Tylenol) 650 mg Q4H PRN PO 06/04/17 12:15 (Milk Of Magnesia Liq) 30 ml DAILY PRN PO 06/04/17 12:15 (Mag-Al Plus Susp Liq) 30 ml Q6H PRN PO 06/04/17 12:15 Family History Patient reports family history significant for hypertension and diabetes Social History Tobacco: Denies Alcohol use: 24 beers a day Illicit drug use: Smokes cocaine daily Physical Exam Vital Signs Vital Signs Date Time Temp Pulse Resp B/P (MAP) Pulse Ox O2 Delivery O2 Flow Rate FiO2 06/04/17 14:10 75 16 125/68 (87) 96 Room Air 06/04/17 11:06 98.6 82 16 122/66 (84) 94 Room Air 06/04/17 11:01 106 196/93 (127) 06/04/17 02:23 98.1 83 18 106/60 (75) 97 Room Air 06/03/17 18:16 98.3 95 12 140/82 (101) 99 Physical Exam GENERAL: This is a well-nourished, well-developed patient, in no apparent distress. SKIN: No rashes, ecchymoses or lesions. Cool and dry. HEAD: Atraumatic. Normocephalic. No temporal or scalp tenderness. EYES: Pupils equal round and reactive. Extraocular motions intact. No scleral icterus. No injection or drainage. ENT: Nose without bleeding, purulent drainage or septal hematoma. Throat without erythema, tonsillar hypertrophy or exudate. Uvula midline. Airway patent. NECK: Trachea midline. No JVD. Supple, nontender, no meningeal signs. CARDIOVASCULAR: Regular rate and rhythm without murmurs, gallops, or rubs. RESPIRATORY: Clear to auscultation. Breath sounds equal bilaterally. No wheezes , rales, or rhonchi. GASTROINTESTINAL: Abdomen soft, non-tender, nondistended. No hepato-splenomegaly , or guarding. MUSCULOSKELETAL: Extremities without clubbing, cyanosis, or edema. No joint tenderness, effusion, or edema noted. No calf tenderness. NEUROLOGICAL: Awake and alert. Cranial nerves grossly intact. Motor and sensory grossly within normal limits. Five out of 5 muscle strength in all muscle groups. Right hand tremor. Normal speech, no facial droop. Flat affect. Assessment and Plan Assessment and Plan 52-year-old male with past medical history of hypertension, hyperlipidemia, diabetes, and depression who presented to the emergency department on voluntary basis with feelings of depression and thoughts of medication overdose. Depression with suicidal thoughts - Treatment per psychiatry, mother recently 2 weeks ago, ? as patient is poor historian Right hand tremor - ? if this is psychologically related - Continue monitoring for now, patient denies HTN - Hypertensive on admission, BP currently stable - Continue monitoring blood pressure if elevate will resume lisinopril. HLD - Continue home dose statin - Resume low dose ASA DM II - Hemoglobin A1C 6.1 on 05/07/17 - Diet controlled for the moment Alcohol abuse - CIWA protocol in place - Close monitoring for withdrawal symptoms - Consider adding scheduled Librium for DT's Cocaine abuse - Negative health effects discussed, counseled on cessation DVT prophylaxis - Ambulation This note was transcribed by CYNTHIA Gómez. I, Dr. Gabriela Garcia personally performed the history, physical exam, and medical decision making; and confirmed the accuracy of the information in the transcribed note. Authenticated by Dr. Gabriela Garcia on 06/04/17 at 15:19. Discussed Condition With Nurse Ze Qureshi Jun 04, 2017 15:09 Gabriela Garcia MD Jun 04, 2017 18:30
[2017-06-04 15:35] VITALS: BP 127/84; PULSE 84; RESP 18; TEMP 98.5; O2SAT 98
[2017-06-04 18:00] VITALS: BP 127/84; PULSE 84; RESP 18; TEMP 98.5; O2SAT 98
[2017-06-04] MEDS: LORazepam 1 MG TAB PO PRN (20:56)
[2017-06-04] MEDS: ATORVASTATIN 20 MG TAB PO SCH (20:56)
[2017-06-05 05:09] VITALS: BP 138/60; PULSE 68; RESP 16; TEMP 97.8
[2017-06-05] MEDS: ASPIRIN 81 MG CHEW TAB PO SCH (08:22)
[2017-06-05 12:28] LABS: ALBUMIN 3.9 GM/DL (3.4-5.0); AST (GOT) 53 U/L (15-37); BLOOD UREA NITROGEN 9 MG/DL (7-18); CALCIUM 9.2 MG/DL (8.5-10.1); CHLORIDE 103 MEQ/L (98-107); CHOLESTEROL 128 MG/DL (120-200); CREATININE 1.03 MG/DL (0.60-1.30); GLOMERULAR FILTRATION RATE 92 ML/MIN (>89); GLUCOSE,RANDOM 108 MG/DL (74-106); SODIUM (NA) 137 MEQ/L (136-145)
[2017-06-05 12:31] LABS: ALKALINE PHOSPHATASE 73 U/L (45-117); ALT (GPT) 32 U/L (12-78); CHOLESTEROL/ HDL RATIO 3.04 RATIO; LDL CHOLESTEROL 63 MG/DL (0-99); TOTAL BILIRUBIN ADULT 0.4 MG/DL (0.2-1.0); TOTAL PROTEIN 7.5 GM/DL (6.4-8.2); TRIGLYCERIDES 117 MG/DL (42-150)
--- NOTE | 2017-06-05 13:01 | HHI.PR ---
Subjective Remarks 52-year-old male with past medical history significant for hypertension, hyperlipidemia, diabetes, chronic lower back pain, and depression who presented to the emergency department on 06/03 on a voluntary basis for psychological evaluation. Patient lives at [facility] due to mental health reported contemplating overdosing with his medications. Review of emergency department documentation notes that mother allegedly 2 weeks ago. At the time of my exam patient is in inpatient psychiatry unit sitting in the day room. He is calm and cooperative and is answering questions although he has a poor historian. EMR was reviewed for majority of medical history. He is able to verify some of his past medical history and denies any surgeries in the past. He reports drinking one 24 pack of beer a day states that the last time he drank was yesterday. He also admits to smoking cocaine daily. Noted right hand tremor, patient states that this began this morning. No reports of fevers, chills, nausea, vomiting, diarrhea, headaches, shortness of breath, chest pains or cough. 06-05 NO NEW COMPLAINTS TODAY SEEN IN HIS ROOM WITH RN IN ATTENDANCE Objective Vitals Vital Signs Date Time Temp Pulse Resp B/P (MAP) Pulse Ox O2 Delivery O2 Flow Rate FiO2 06/05/17 05:09 97.8 68 16 138/60 (86) 06/04/17 18:00 98.5 84 18 127/84 (98) 98 06/04/17 15:38 06/04/17 15:35 98.5 84 18 127/84 (98) 98 06/04/17 15:30 06/04/17 14:10 75 16 125/68 (87) 96 Room Air I/O 06/04/17 06/04/17 06/04/17 06/05/17 06/05/17 06/05/17 07:00 15:00 23:00 07:00 15:00 23:00 Intake Total 240 ml Balance 240 ml Intake Oral 240 ml Result Diagram: 06/05/17 1125 Other Results Laboratory Tests Test 06/05/17 11:25 Blood Urea Nitrogen 9 MG/DL Creatinine 1.03 MG/DL Random Glucose 108 MG/DL Total Protein 7.5 GM/DL Albumin 3.9 GM/DL Calcium Level 9.2 MG/DL Alkaline Phosphatase 73 U/L Aspartate Amino Transf (AST/SGOT) 53 U/L Alanine Aminotransferase (ALT/SGPT) 32 U/L Total Bilirubin 0.4 MG/DL Sodium Level 137 MEQ/L Potassium Level 3.8 MEQ/L Chloride Level 103 MEQ/L Carbon Dioxide Level 28.0 MEQ/L Anion Gap 6 MEQ/L Estimat Glomerular Filtration Rate 92 ML/MIN Triglycerides Level 117 MG/DL Cholesterol Level 128 MG/DL LDL Cholesterol 63 MG/DL HDL Cholesterol 42.0 MG/DL Cholesterol/HDL Ratio 3.04 RATIO Objective Remarks GENERAL: AWAKE ALERT TALKATIVE AND COOPERATIVE SKIN: Warm and dry. HEAD: Atraumatic. Normocephalic. EYES: Pupils equal and round. No scleral icterus. No injection or drainage. EOMI ENT: No nasal bleeding or discharge. Mucous membranes pink and moist. TONGUE MIDLINE NECK: Trachea midline. No JVD. SUPPLE CARDIOVASCULAR: Regular rate and rhythm. S1, S2 NO S3 OR S4 RESPIRATORY: No accessory muscle use. Clear to auscultation. Breath sounds equal bilaterally. GASTROINTESTINAL: Abdomen soft, non-tender, nondistended. Hepatic and splenic margins not palpable. MUSCULOSKELETAL: Extremities without clubbing, cyanosis, or edema. No obvious deformities. NEUROLOGICAL: Awake and alert. No obvious cranial nerve deficits. Motor grossly within normal limits. Five out of 5 muscle strength in the arms and legs. Normal speech. PSYCHIATRIC: INAppropriate mood and affect; insight and judgment ABnormal. Medications and IVs Current Medications Flumazenil (Romazicon Inj) 0.2 mg Q1M PRN IV PUSH SEE LABEL COMMENTS; Start at 10:30 Lorazepam (Ativan) 1 mg Q4H PRN PO CIWA 8 - 10 Last administered on 06/04/17at 20:56; Start 06/04/17 at 10:30 Lorazepam (Ativan Inj) 1 mg Q4H PRN IV PUSH CIWA 8 - 10; Start 06/04/17 at 10: 30 Lorazepam (Ativan) 2 mg Q2H PRN PO CIWA 11-14 Last administered on 06/05/17at 07 :43; Start 06/04/17 at 10:30 Lorazepam (Ativan Inj) 2 mg Q2H PRN IV PUSH CIWA 11-14; Start 06/04/17 at 10:30 Lorazepam (Ativan Inj) 2 mg Q1H PRN IV PUSH CIWA 15-20 Last administered on at 10:33; Start 06/04/17 at 10:30 Lorazepam (Ativan Inj) 2 mg Q15M PRN IV PUSH CIWA > 20; Start 06/04/17 at 10:30 Acetaminophen (Tylenol) 650 mg Q4H PRN PO Pain 1-5 or Temp >101F; Start at 12:15 Magnesium Hydroxide (Milk Of Magnesia Liq) 30 ml DAILY PRN PO CONSTIPATION; Start 06/04/17 at 12:15 Al Hydrox/Mg Hydrox/Simethicone (Mag-Al Plus Susp Liq) 30 ml Q6H PRN PO DYSPEPSIA; Start 06/04/17 at 12:15 Aspirin (Aspirin Chew) 81 mg DAILY PO Last administered on 06/05/17at 08:22; Start 06/05/17 at 09:00 Atorvastatin Calcium (Lipitor) 20 mg HS PO Last administered on 06/04/17at 20:56 ; Start 06/04/17 at 21:00 A/P Problem List: (1) Diabetes mellitus ICD Code: E11.9 - Type 2 diabetes mellitus without complications (2) HTN (hypertension) ICD Code: I10 - Essential (primary) hypertension (3) Hyperlipidemia ICD Code: E78.5 - Hyperlipidemia, unspecified (4) Cocaine abuse ICD Code: F14.10 - Cocaine abuse, uncomplicated (5) Alcohol abuse ICD Code: F10.10 - Alcohol abuse, uncomplicated Assessment and Plan 52-year-old male with past medical history of hypertension, hyperlipidemia, diabetes, and depression who presented to the emergency department on voluntary basis with feelings of depression and thoughts of medication overdose. Depression with suicidal thoughts - Treatment per psychiatry, mother recently 2 weeks ago, ? as patient is poor historian Right hand tremor - ? if this is psychologically related - Continue monitoring for now, patient denies HTN - Hypertensive on admission, BP currently stable - RESUME LISINOPRIL 2.5MG PO DAILY HLD - Continue home dose statin - Resume low dose ASA DM II - Hemoglobin A1C 6.1 on 05/07/17 - Diet controlled for the moment Alcohol abuse - CIWA protocol in place - Close monitoring for withdrawal symptoms - Consider adding scheduled Librium for DT's - RECOMMENDED CESSATION Cocaine abuse - Negative health effects discussed, counseled on cessation - RECOMMENDED CESSATION DVT prophylaxis - Ambulation Discharge Planning PENDING PSYCHIATRIC CLEARANCE Jay Linares DO Jun 05, 2017 13:01
[2017-06-05] MEDS ORDERED: PILL SPLITTER OTHER PRN (13:15)
[2017-06-05] MEDS ORDERED: LISINOPRIL 5 MG TAB PO ONE (13:30)
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
[2017-06-05 15:48] VITALS: BP 137/71; PULSE 86; RESP 17; TEMP 99.3; O2SAT 96
[2017-06-05] MEDS: LORazepam 1 MG TAB PO PRN (17:11)
[2017-06-05 18:00] VITALS: BP 137/71; PULSE 86; RESP 17; TEMP 99.3; O2SAT 96
[2017-06-05] MEDS: QUEtiapine FUMARATE 100 MG TAB PO SCH (21:57)
[2017-06-05] MEDS: MIRTAZAPINE 15 MG TAB PO SCH (21:57)
[2017-06-05] MEDS: ATORVASTATIN 20 MG TAB PO SCH (21:58)
[2017-06-06 05:53] VITALS: BP 121/74; PULSE 78; RESP 16; TEMP 97.6; O2SAT 97
[2017-06-06] MEDS: QUEtiapine FUMARATE 100 MG TAB PO SCH (08:07)
[2017-06-06] MEDS: ASPIRIN 81 MG CHEW TAB PO SCH (08:07)
[2017-06-06] MEDS: LISINOPRIL 5 MG TAB PO SCH (08:07)
--- NOTE | 2017-06-06 11:18 | HHI.PR ---
Subjective Remarks Patient reports he is doing okay. Still endorsed some depression. No suicidal ideation. Blood pressure normalized. Objective Vitals Vital Signs Date Time Temp Pulse Resp B/P (MAP) Pulse Ox O2 Delivery O2 Flow Rate FiO2 06/06/17 05:53 97.6 78 16 121/74 (90) 97 06/05/17 18:00 99.3 86 17 137/71 (93) 96 06/05/17 15:48 99.3 86 17 137/71 (93) 96 I/O 06/05/17 06/05/17 06/05/17 06/06/17 06/06/17 06/06/17 07:00 15:00 23:00 07:00 15:00 23:00 Intake Total 240 ml Balance 240 ml Intake Oral 240 ml Result Diagram: 06/05/17 1125 Objective Remarks GENERAL: This is a well-nourished, well-developed patient, in no apparent distress. CARDIOVASCULAR: Normal rate and regular rhythm without murmurs, gallops, or rubs. RESPIRATORY: Good respiratory efforts. Breath sounds equal and clear to auscultation bilaterally. GASTROINTESTINAL: Abdomen soft, non-tender, non-distended. Normal active bowel sounds MUSCULOSKELETAL: Extremities without cyanosis, or edema. NEURO: Alert & Oriented x4 to person, place, time, situation. Moves all ext x4 PSYCH: Patient reports depression. A/P Problem List: (1) Diabetes mellitus ICD Code: E11.9 - Type 2 diabetes mellitus without complications (2) HTN (hypertension) ICD Code: I10 - Essential (primary) hypertension (3) Hyperlipidemia ICD Code: E78.5 - Hyperlipidemia, unspecified (4) Cocaine abuse ICD Code: F14.10 - Cocaine abuse, uncomplicated (5) Alcohol abuse ICD Code: F10.10 - Alcohol abuse, uncomplicated Assessment and Plan 52-year-old male with past medical history of hypertension, hyperlipidemia, diabetes, and depression who presented to the emergency department on voluntary basis with feelings of depression and thoughts of medication overdose. Depression with suicidal thoughts - Treatment per psychiatry, mother recently 2 weeks ago Right hand tremor - ? if this is psychologically related - Continue monitoring for now, patient denies HTN - Hypertensive on admission - BP stable. Continue lisinopril HLD - Continue home dose statin - Resume low dose ASA DM II - Hemoglobin A1C 7.0 - Continue Diet controlled for the moment Alcohol abuse - CIMI protocol in place - Patient was counseled on cessation Cocaine abuse - Negative health effects discussed, counseled on cessation DVT prophylaxis - Ambulation Discharge Planning Patient is medically stable. We'll sign off. Call or consult with questions. Jannet Pastrana MD Jun 06, 2017 11:18
[2017-06-06 13:27] LABS: AUTOMATED NEUTROPHIL # 2.4 TH/MM3 (1.8-7.7); BASOPHIL % 0.7 % (0.0-2.0); EOSINOPHIL # 0.1 TH/MM3 (0-0.4); EOSINOPHIL % 2.7 % (0.0-4.0); HEMATOCRIT 41.1 % (39.0-51.0); HEMOGLOBIN 13.9 GM/DL (13.0-17.0); LYMPH % 42.2 % (9.0-44.0); LYMPHOCYTE # 2.3 TH/MM3 (1.0-4.8); MEAN CELL VOLUME 85.9 FL (80.0-100.0); MEAN CORPUSCULAR HEMOGLOBIN 29.1 PG (27.0-34.0); MEAN CORPUSCULAR HGB CONC 33.9 % (32.0-36.0); MEAN PLATELET VOLUME 8.7 FL (7.0-11.0); MONO % 10.4 % (0.0-8.0); MONOCYTE # 0.6 TH/MM3 (0-0.9); PLATELET COUNT 177 TH/MM3 (150-450); RED BLOOD COUNT 4.79 MIL/MM3 (4.50-5.90); RED CELL DISTRIBUTION WIDTH 13.9 % (11.6-17.2); WHITE BLOOD COUNT 5.4 TH/MM3 (4.0-11.0)
--- NOTE | 2017-06-06 15:12 | HHI.PYPN ---
Subjective Remarks Patient seen for follow-up, chart reviewed. Discussion she staff reported the patient continues to report feeling depressed endorsing suicidal ideation as well as command auditory hallucinations to kill himself. Patient was found in the room was able to engage in interview today along with nurse. Patient states that he continues to feel very depressed although slightly better than yesterday along with suicidal ideations and continue with auditory hallucinations command type telling him to kill himself. Patient reports he had difficulty sleeping last night, eating and drinking well, no difficulty with urination or bowel movement and denies any adverse drug reactions. No delusional material elicited. Patient continues to endorse wanting to go to a rehabilitation program for substance use. Review of Systems Except as stated in HPI: all other systems reviewed are Neg Mental Status Examination Appearance: Appropriate Consciousness: Alert Orientation: Person, Place, Date/Time Motor Activity: Normal gait Speech: Unremarkable Language: Adequate Fund of Knowledge: Inadequate Attention and Concentration: Adequate Memory: Unremarkable Mood: Sad Affect: Sad Thought Process & Associations: Intact Thought Content: Hallucinations, Delusional Hallucination Type: Auditory Delusion Type: Paranoid Suicidal Ideation: Yes Suicidal Plan: No Suicidal Intention: No Homicidal Ideation: No Homicidal Plan: No Homicidal Intention: No Insight: Fair Judgment: Impulsive Results Labs labs reviewed Test 06/06/17 12:40 White Blood Count 5.4 TH/MM3 Red Blood Count 4.79 MIL/MM3 Hemoglobin 13.9 GM/DL Hematocrit 41.1 % Mean Corpuscular Volume 85.9 FL Mean Corpuscular Hemoglobin 29.1 PG Mean Corpuscular Hemoglobin Concent 33.9 % Red Cell Distribution Width 13.9 % Platelet Count 177 TH/MM3 Mean Platelet Volume 8.7 FL Neutrophils (%) (Auto) 44.0 % Lymphocytes (%) (Auto) 42.2 % Monocytes (%) (Auto) 10.4 % Eosinophils (%) (Auto) 2.7 % Basophils (%) (Auto) 0.7 % Neutrophils # (Auto) 2.4 TH/MM3 Lymphocytes # (Auto) 2.3 TH/MM3 Monocytes # (Auto) 0.6 TH/MM3 Eosinophils # (Auto) 0.1 TH/MM3 Basophils # (Auto) 0.0 TH/MM3 CBC Comment DIFF FINAL Differential Comment Vitals/IOs Vital Signs Date Time Temp Pulse Resp B/P (MAP) Pulse Ox O2 Delivery O2 Flow Rate FiO2 06/06/17 05:53 97.6 78 16 121/74 (90) 97 06/04/17 14:10 Room Air Intake and Output 06/06/17 06/06/17 06/07/17 08:00 16:00 00:00 Intake Total 240 ml Balance 240 ml Assessment & Plan Problem List: (1) Adjustment disorder with depressed mood ICD Codes: F43.21 - Adjustment disorder with depressed mood Assessment & Plan Patient seen for follow up; chart reviewed. Patient continues to endorse depressed mood, anhedonia, command AH and suicidal ideations. Will increase quetiapine 150mg/200mg HS, will also add trazodone 50mg PO HS prn insomnia, continue rest of medications. Continue to monitor mood and behavior. Patient provided with information to explore rehabilitation options. Discharge planning in progress Justification for Cont. Inpt. At risk for decompensation at lower level of care Discharge Planning To be determined Yon Corado MD Jun 06, 2017 15:12
[2017-06-06 18:03] VITALS: BP 129/80; PULSE 103; RESP 16; TEMP 97.5; O2SAT 96
[2017-06-06] MEDS: MIRTAZAPINE 15 MG TAB PO SCH (20:27)
[2017-06-06] MEDS: traZODone HCL 50 MG TAB PO PRN (20:27)
[2017-06-06] MEDS: QUEtiapine FUMARATE 200 MG TAB PO SCH (20:27)
[2017-06-06] MEDS: ATORVASTATIN 20 MG TAB PO SCH (20:27)
[2017-06-07 06:00] VITALS: BP 100/60; PULSE 74; RESP 18; TEMP 97.6; O2SAT 98
[2017-06-07] MEDS: LISINOPRIL 5 MG TAB PO SCH (08:41)
[2017-06-07] MEDS: ASPIRIN 81 MG CHEW TAB PO SCH (08:41)
[2017-06-07] MEDS ORDERED: QUEtiapine FUMARATE 100 MG TAB PO SCH (09:00)
[2017-06-07 10:48] LABS: BILIRUBIN, URINE NEG (NEG); BLOOD, URINE NEG (NEG); GLUCOSE,URINE 70 mg/dL (NEG); KETONE, URINE NEG (NEG); MUCUS URINE FEW /lpf (OCC); NITRITE,URINE NEG (NEG); PH, URINE 5.5 (5.0-8.5); SQUAMOUS EPITHELIAL CELL URINE <1 /hpf (0-5); URINE COLOR LIGHT-YELLOW (YELLW/STRAW); URINE LEUKOCYTE ESTERASE NEG (NEG)
--- NOTE | 2017-06-07 17:30 | HHI.PYPN ---
Subjective Remarks Patient seen for follow up, chart reviewed. Discussion with nursing staff reported patient denies any SI today, CIWA scores have been low, visible on the unit, slept well. Patient found in day room, calm and cooperative with interview. Patient states that he has been feeling "better", sleep was improved but continues to feel depressed along with intermittent SI and the AH have been "calmer". He mentions that he does not want to return back to the [facility] and plans on possibly moving back to [place] with his mother. Review of Systems Except as stated in HPI: all other systems reviewed are Neg Mental Status Examination Appearance: Appropriate Consciousness: Alert Orientation: Person, Place, Date/Time Motor Activity: Normal gait Speech: Unremarkable Language: Adequate Fund of Knowledge: Inadequate Attention and Concentration: Adequate Memory: Unremarkable Mood: Sad Affect: Sad Thought Process & Associations: Intact Thought Content: Hallucinations, Delusional Hallucination Type: Auditory (decreasing) Delusion Type: Paranoid Suicidal Ideation: Yes (intermittent) Suicidal Plan: No Suicidal Intention: No Homicidal Ideation: No Homicidal Plan: No Homicidal Intention: No Insight: Fair Judgment: Impulsive Results Labs labs reviewed Test 06/07/17 10:30 Urine Color LIGHT-YELLOW Urine Turbidity CLEAR Urine pH 5.5 Urine Specific [place] 1.006 Urine Protein NEG mg/dL Urine Glucose (UA) 70 mg/dL Urine Ketones NEG mg/dL Urine Occult Blood NEG Urine Nitrite NEG Urine Bilirubin NEG Urine Urobilinogen LESS THAN 2.0 MG/DL Urine Leukocyte Esterase NEG Urine WBC LESS THAN 1 /hpf Urine Squamous Epithelial Cells <1 /hpf Urine Mucus FEW /lpf Microscopic Urinalysis Comment CULT NOT INDICATED Urine Opiates Screen NEG Urine Barbiturates Screen NEG Urine Amphetamines Screen NEG Urine Benzodiazepines Screen NEG Urine Cocaine Screen NEG Urine Cannabinoids Screen NEG Vitals/IOs Vital Signs Date Time Temp Pulse Resp B/P (MAP) Pulse Ox O2 Delivery O2 Flow Rate FiO2 06/07/17 06:00 97.6 74 18 100/60 (73) 98 06/04/17 14:10 Room Air Assessment & Plan Problem List: (1) Adjustment disorder with depressed mood ICD Codes: F43.21 - Adjustment disorder with depressed mood Assessment & Plan Patient continues to endorse depressed mood with intermittent AH. Will increase quetiapine to 200mg PO BID, continue rest of medications. Continue to monitor mood and behavior. Discharge planning in progress. Justification for Cont. Inpt. At risk for further decompensation if at lower level of care. Discharge Planning To be determined Yon Corado MD Jun 07, 2017 17:30
[2017-06-07 19:13] VITALS: BP 111/68; PULSE 77; RESP 18; TEMP 97; O2SAT 99
[2017-06-07] MEDS: QUEtiapine FUMARATE 200 MG TAB PO SCH (20:13)
[2017-06-07] MEDS: ATORVASTATIN 20 MG TAB PO SCH (20:13)
[2017-06-07] MEDS: MIRTAZAPINE 15 MG TAB PO SCH (20:13)
[2017-06-07] MEDS: traZODone HCL 50 MG TAB PO PRN (20:15)
[2017-06-07] MEDS: ACETAMINOPHEN 325 MG TAB PO PRN (20:17)
[2017-06-08 05:46] VITALS: BP 110/68; PULSE 80; RESP 16; TEMP 98; O2SAT 98
[2017-06-08] MEDS: QUEtiapine FUMARATE 100 MG TAB PO SCH ×2 (09:01→20:30)
[2017-06-08] MEDS: ASPIRIN 81 MG CHEW TAB PO SCH (09:02)
[2017-06-08] MEDS: LISINOPRIL 5 MG TAB PO SCH (09:02)
--- NOTE | 2017-06-08 15:13 | HHI.PYPN ---
Subjective Remarks Patient seen for follow-up, chart reviewed. Discussion she staff reported that patient's CIWA scores of 0, slept well the night auditory hallucination last evening but did endorse command auditory hallucinations to kill himself today but denies suicide ideations. Patient is 5 day room, cooperative today. Patient reports having some lower back pain reports sleeping 4-5 hours but continues to feel tired. Patient stated and was "a little irritable, reports that his depression is better but continues to have an imminent suicide ideations which she last had this morning. Patient continues to report having auditory hallucination but is "calming down a lot" and they were noncommand in nature which she last experienced last evening. Review of Systems Except as stated in HPI: all other systems reviewed are Neg Mental Status Examination Appearance: Appropriate Consciousness: Alert Orientation: Person, Place, Date/Time Motor Activity: Normal gait Speech: Unremarkable Language: Adequate Fund of Knowledge: Inadequate Attention and Concentration: Adequate Memory: Unremarkable Mood: Other ("better") Affect: Sad Thought Process & Associations: Intact Thought Content: Hallucinations, Delusional Hallucination Type: Auditory (denies today) Delusion Type: Paranoid Suicidal Ideation: Yes (intermittent) Suicidal Plan: No Suicidal Intention: No Homicidal Ideation: No Homicidal Plan: No Homicidal Intention: No Insight: Fair Judgment: Impulsive Results Vitals/IOs Vital Signs Date Time Temp Pulse Resp B/P (MAP) Pulse Ox O2 Delivery O2 Flow Rate FiO2 06/08/17 05:46 98.0 80 16 110/68 (82) 98 06/04/17 14:10 Room Air Intake and Output 06/08/17 06/08/17 06/09/17 08:00 16:00 00:00 Intake Total 240 ml 240 ml Balance 240 ml 240 ml Assessment & Plan Problem List: (1) Adjustment disorder with depressed mood ICD Codes: F43.21 - Adjustment disorder with depressed mood Assessment & Plan Patient at this time reports improvement of movement continues report feeling depressed along with intermittent suicidal ideations and command auditory hallucinations kill himself. We'll increase quetiapine to 150mg a.m./ 250mg at bedtime. Continue rest of medications. Auditory behavior. Patient reports current continuously will be exploring options for rehabilitation programs in the community. Discharge planning in progress Justification for Cont. Inpt. At risk for further decompensation at lower level of care. Discharge Planning To be determined Yon Corado MD Jun 08, 2017 15:12
[2017-06-08] MEDS ORDERED: PILL SPLITTER OTHER PRN (15:30)
[2017-06-08 17:29] VITALS: BP 139/64; PULSE 100; RESP 16; TEMP 98.2; O2SAT 98
[2017-06-08] MEDS: MIRTAZAPINE 15 MG TAB PO SCH (20:28)
[2017-06-08] MEDS: ATORVASTATIN 20 MG TAB PO SCH (20:29)
[2017-06-08] MEDS: traZODone HCL 50 MG TAB PO PRN (20:30)
[2017-06-08] MEDS: ACETAMINOPHEN 325 MG TAB PO PRN (20:31)
[2017-06-09 06:02] VITALS: BP 98/55; PULSE 72; RESP 16; TEMP 97.9; O2SAT 97
[2017-06-09] MEDS: LISINOPRIL 5 MG TAB PO SCH (09:00)
[2017-06-09] MEDS: QUEtiapine FUMARATE 100 MG TAB PO SCH ×2 (09:00→21:00)
[2017-06-09] MEDS: ASPIRIN 81 MG CHEW TAB PO SCH (09:00)
[2017-06-09 09:31] VITALS: BP 134/77; PULSE 109
[2017-06-09] MEDS ORDERED: ATOR20TA15 PO (14:21)
[2017-06-09] MEDS ORDERED: LISI-519 PO (14:21)
[2017-06-09] MEDS ORDERED: ASPI81 PO (14:21)
[2017-06-09] MEDS ORDERED: QUET1TAB9 PO (14:21)
[2017-06-09] MEDS ORDERED: MIRT30TA PO (14:21)
[2017-06-09] MEDS ORDERED: QUET1TAB8 PO (14:21)
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
[2017-06-09 18:00] VITALS: BP 140/71; PULSE 102; RESP 16; TEMP 98.2; O2SAT 96
[2017-06-09] MEDS: ATORVASTATIN 20 MG TAB PO SCH (21:00)
[2017-06-09] MEDS: MIRTAZAPINE 15 MG TAB PO SCH (21:00)
== END 2017-06-09 22:45 | disposition home or self-care (01) | DRG 881 ==
LOC: NEPJ 18:15 → NEDA 06-04 11:37 → H250 06-04 15:42 → H260 06-05 05:30
PROVIDERS: ADMIT Student in an Organized Health Care Education/Training Program; ATTEND Student in an Organized Health Care Education/Training Program
DX: F43.21 Adjustment disorder with depressed mood (principal); R45.851 Suicidal ideations; E11.9 Type 2 diabetes mellitus without complications; I10 Essential (primary) hypertension; F10.10 Alcohol abuse, uncomplicated; F14.10 Cocaine abuse, uncomplicated; M54.5 Low back pain; G89.29 Other chronic pain; E78.5 Hyperlipidemia, unspecified; F20.9 Schizophrenia, unspecified; R25.1 Tremor, unspecified; Z91.5 Personal history of self-harm; Z81.8 Family history of other mental and behavioral disorders; Z59.0 Homelessness
CPT/HCPCS: 80053; 80061; 80307; 81001; 83036; 85025; 96374; J2060